=== PATIENT | male | born 1955 | race Caucasian/White ===

== ENCOUNTER 2020-05-28 16:13 | Outpatient (REF) | payer BC, SELFPAY ==
[2020-05-28 17:05] LABS: MANUAL DIFF FLAG NO
[2020-05-28 17:15] LABS: Basophils Absolute Auto 0.1 X10*3/uL (0.0-0.2); Basophils Percent Auto 0.7 % (0-2); Eosinophils Absolute Auto 0.2 X10*3/uL (0.0-0.4); Eosinophils Percent Auto 1.7 % (0-4); Hematocrit 49.2 % (42-52); Hemoglobin 16.4 g/dl (14.0-18.0); Imm Gran Abs Auto 0.12 X10*3/uL (0.00-0.03); Imm Gran Pct Auto 1.2 % (0.0-0.4); Lymphocytes Absolute Auto 3.1 X10*3/uL (1.2-4.9); Lymphocytes Percent Auto 30.6 % (20-40); Mean Corpuscular HGB Conc 33.3 g/dl (31.0-36.0); Mean Corpuscular Hemoglobin 29.6 pg (27.0-33.0); Mean Corpuscular Volume 88.8 fL (80-98); Mean Platelet Volume 11.2 fL (9.4-12.4); Monocytes Percent Auto 9.3 % (2-11); Neutrophils Absolute Auto 5.8 X10*3/uL (2.0-8.3); Neutrophils Percent Auto 56.5 % (45-73); Platelet Count 210 X10*3/uL (160-400); Red Blood Count 5.54 X10*6/uL (4.60-5.80); Red Cell Distribution Width 12.2 % (11.0-16.0); White Blood Count 10.2 X10*3/uL (4.8-10.8)
[2020-05-28 17:16] LABS: Appearance Urine CLEAR; Color Urine YELLOW; Glucose Urine UA NEG (NEG); Leukocyte Esterase Urine NEG (NEG); Nitrite Urine NEG (NEG); Urine Blood TRACE (NEG); Urine Ketones NEG (NEG); Urine Protein NEG (NEG-TRACE)
[2020-05-28 17:28] LABS: Bacteria Urine TRACE /LPF; Squamous Epithelial Cell Urine TRACE /LPF; WBC Urine 0-2 /HPF (0-4)
[2020-05-28 17:54] LABS: Anion Gap 13 (12-20); Blood Urea Nitrogen 12 mg/dL (9-16); C Reactive Protein 0.08 mg/dL (< or = 0.50); Calcium 9.1 mg/dL (8.4-10.2); Carbon Dioxide 25 mmol/L (22-29); Chloride 107 mmol/L (96-108); Estimated Glomerular Filt Rate > 60; Glucose Random 88 mg/dL (60-115); Sodium 141 mmol/L (135-145)
[2020-05-28 18:18] LABS: Free T4 (Free Thyroxine) 1.04 ng/dL (0.71-1.85); Prostate Specific Antigen 3.44 ng/mL (<0.05-4.0); Thyroid Stimulating Hormone 3.44 uIU/mL (0.32-4.0)
[2020-05-28 18:19] LABS: Vitamin B12 322 pg/mL (200-900)
== END 2020-05-28 16:14 | disposition home or self-care (01) ==
LOC: HO.LAB 16:13
PROVIDERS: PCP Internal Medicine; Visit Provider Internal Medicine
DX: R25.1 Tremor, unspecified (principal); K21.9 Gastro-esophageal reflux disease without esophagitis; E78.00 Pure hypercholesterolemia, unspecified; R30.0 Dysuria; Z12.5 Encounter for screening for malignant neoplasm of prostate
CPT/HCPCS: 36415; 80048; 81001; 82607; 84153; 84439; 84443; 85025; 86140; 87086

== ENCOUNTER 2020-10-19 10:10 | Outpatient (REF) | payer BC, SELFPAY ==
[2020-10-19 11:07] LABS: Alanine Aminotransferase 61 U/L (0-40); Albumin Level 4.1 g/dL (3.5-5.0); Alkaline Phosphatase 66 U/L (39-117); Anion Gap 14 (12-20); Aspartate Amino Transferase 40 U/L (5-37); Bilirubin Total 0.8 mg/dL (0.0-1.0); Blood Urea Nitrogen 14 mg/dL (9-16); Calcium 9.2 mg/dL (8.4-10.2); Carbon Dioxide 25 mmol/L (22-29); Chloride 105 mmol/L (96-108); Cholesterol 155 mg/dL; Estimated Glomerular Filt Rate > 60; Glucose Fasting 95 mg/dL (60-99); HDL Cholesterol 38 mg/dL; LDL Cholesterol Calculated 66 mg/dl; Potassium 4.1 mmol/L (3.3-5.1); Sodium 140 mmol/L (135-145); Total Protein 7.1 g/dL (6.5-8.0); Triglycerides 256 mg/dL
== END 2020-10-19 10:11 | disposition home or self-care (01) ==
LOC: HO.LAB 10:10
PROVIDERS: PCP Internal Medicine; Visit Provider Internal Medicine
DX: E78.00 Pure hypercholesterolemia, unspecified (principal)
CPT/HCPCS: 36415; 80053; 80061

== ENCOUNTER 2020-12-14 09:29 | Outpatient (REF) | payer BC, SELFPAY ==
[2020-12-14 10:30] LABS: Alanine Aminotransferase 69 U/L (0-40); Alkaline Phosphatase 67 U/L (39-117); Anion Gap 10 (12-20); Aspartate Amino Transferase 38 U/L (5-37); Bilirubin Total 0.9 mg/dL (0.0-1.0); Blood Urea Nitrogen 14 mg/dL (9-16); Carbon Dioxide 24 mmol/L (22-29); Chloride 107 mmol/L (96-108); Cholesterol 147 mg/dL; Estimated Glomerular Filt Rate > 60; Glucose Fasting 104 mg/dL (60-99); HDL Cholesterol 40 mg/dL; LDL Cholesterol Calculated 64 mg/dl; Potassium 4.1 mmol/L (3.3-5.1); Sodium 137 mmol/L (135-145); Total Protein 6.7 g/dL (6.5-8.0); Triglycerides 217 mg/dL
== END 2020-12-14 09:30 | disposition home or self-care (01) ==
LOC: HO.LAB 09:29
PROVIDERS: PCP Internal Medicine; Visit Provider Internal Medicine
DX: I10 Essential (primary) hypertension (principal); E78.5 Hyperlipidemia, unspecified; R79.89 Other specified abnormal findings of blood chemistry
CPT/HCPCS: 36415; 80053; 80061

== ENCOUNTER 2021-02-05 10:22 | Emergency (ER) | payer BC, SELFPAY ==
[2021-02-05 10:30] VITALS: BP 191/120; PULSE 99; RESP 20; TEMP 36.8; O2SAT 97; BMI 31.9
[2021-02-05 10:41] LABS: Glucose, Whole Blood 103 mg/dL (60-115)
--- NOTE | 2021-02-05 11:19 | ECG_ITS ---
Test Reason : sob Blood Pressure : / mmHG Vent. Rate : 086 BPM Atrial Rate : 086 BPM P-R Int : 132 ms QRS Dur : 086 ms QT Int : 350 ms P-R-T Axes : 045 024 049 degrees QTc Int : 418 ms Sinus rhythm with occasional Premature ventricular complexes Otherwise normal ECG When compared with ECG of 05-MAY-2007 06:51, Premature ventricular complexes are now Present Heart rate has increased Referred By: Pasquale Kurtz Electronically Signed By:SCOTT HILL MD
--- NOTE | 2021-02-05 11:20 | ED_ITS ---
HPI - General Adult General Chief complaint: General Medical Stated complaint: sob, shoulder to chest pain, numbness Time Seen by Provider: 02/05/21 11:13 Source: patient Mode of arrival: ambulatory Limitations: no limitations History of Present Illness HPI narrative: This is a very pleasant 65 years old male presented ambulatory to the emergency department stating that fairly this morning felt a pain in the right side of the neck, his leg was shaky he felt flushed, he drank some orange juice and felt much better. At this time is asymptomatic. He is also complaining of intermittent numbness/pain in the feet which has been going on for months Onset (ago): hour(s) (8) Location: neck (rt) Radiation: non-radiation Severity: moderate Quality: burning Pain Consistency: now resolved Relieving factors: other (oj) Exacerbating factors: none Related Data Allergies Allergy/AdvReac Type Severity Reaction Status Date / Time amoxicillin [Amoxicillin] Allergy Mild RASH Unverified 12/14/19 15:09 Penicillins Allergy Mild HIVES Unverified 12/14/19 15:09 Review of Systems Review of Systems: Yes all other systems are reviewed and are negative Constitutional: Constitutional: Denies fever(s) ENT: Denies disequilibrium Cardiovascular: Cardiovascular: Denies chest pain, Denies chest pain at rest, Denies chest pain with activity, Denies syncope and Denies rapid heart rate Respiratory: Respiratory: Reports no additional respiratory complaints Gastrointestinal: Gastrointestinal: Reports no additional gastrointestinal complaints Neurologic: Denies syncope and Denies disequilibrium PMFSH Past Medical History Attestation statement: The following information was validated with the patient. Medical History GERD (gastroesophageal reflux disease) High cholesterol Social History Social History Advance Directives: No Advance Directives Information Provided: Yes Physical Exam Vital Signs: Vital Signs: Last Vital Signs Temp 97.8 F 02/05/21 11:26 Pulse 80 02/05/21 13:02 Resp 15 02/05/21 13:02 BP 153/92 H 02/05/21 13:02 Pulse Ox 97 02/05/21 11:26 Body Mass Index 31.9 Const: Other: On physical examination is looks well he is nontoxic appearing General: cooperative Nutritional Appearance: average body habitus Orientation/consciousness: oriented to person, oriented to place, oriented to time and patient oriented x3 HENMT: Other: Examination the head eyes ears nose and throat is within normal limit Neck: Other: His neck is supple he has full range of motion and there is no stiffness Carotids: normal carotid upstroke Chest: Chest palpation & inspection: normal inspection of the chest Resp: Effort & Inspection: normal respiratory effort Auscultation: clear to auscultation bilaterally Cardio: Jugular venous distension: no JVD Palpation: normal PMI Rate: regular rate Rhythm: regular rhythm GI: Other: Abdomen is soft nontender no guarding no rebound Neuro: General: oriented to person, oriented to place, oriented to time and patient oriented x3 Extrem: Other: normal pulses feet General: Yes normal to inspection, Yes full ROM and Yes capillary refill normal Course Reevaluation(s) Reevaluation #1: At this time the patient is a completely asymptomatic, his labs are normal I think it the patient can be safely discharged home with a follow- up with the primary care physician. The fact that he got better with the orange was made me think that he had an episode of hypoglycemia Medical Decision Making MDM Narrative Medical decision making narrative: At this time the patient is asymptomatic, I do not think he is having acute coronary syndrome however given his age is 65 years old the he has hypercholesteremia we get at least an EKG his stoma baseline blood work including high sensitive troponin. I anticipate discharge if the above tests are within normal limit Lab Data Result diagrams: 02/05/21 11:44 02/05/21 11:44 Labs: Lab Results 02/05/21 02/05/21 02/05/21 Range/Units 10:36 11:44 11:44 WBC 9.2 (4.8-10.8) X10*3/uL RBC 5.58 (4.60-5.80) X10*6/uL Hgb 16.6 (14.0-18.0) g/dl Hct 49.3 (42.0-52.0) % MCV 88.4 (80.0-98.0) fL MCH 29.7 (27.0-33.0) pg MCHC 33.7 (31.0-36.0) g/dl RDW 12.3 (11.0-16.0) % Plt Count 188 (160-400) X10*3/uL MPV 10.5 (9.4-12.4) fL Immature Gran % (Auto) 1.1 H (0.0-0.4) % Neut % (Auto) 67.0 (45-73) % Lymph % (Auto) 21.7 (20-40) % [place] % (Auto) 8.7 (2-11) % Eos % (Auto) 1.0 (0-4) % Baso % (Auto) 0.5 (0-2) % Lymph # (Auto) 2.0 (1.2-4.9) X10*3/uL [place] # (Auto) 0.8 (0.1-1.2) X10*3/uL Eos # (Auto) 0.1 (0.0-0.4) X10*3/uL Baso # (Auto) 0.1 (0.0-0.2) X10*3/uL Abs Immat Gran (auto) 0.10 H (0.00-0.03) X10*3/uL Absolute Neuts (auto) 6.1 (2.0-8.3) x10*3/uL Absolute Nucleated RBC 0.000 (0.0-0.012) X10*3/uL Nucleated RBC % (auto) 0.0 (0.0-0.2) /100WBC Sodium 139 (135-145) mmol/L Potassium 4.2 (3.3-5.1) mmol/L Chloride 106 (96-108) mmol/L Carbon Dioxide 25 (22-29) mmol/L Anion Gap 12 (12-20) BUN 11 (9-16) mg/dL Creatinine 0.96 (0.5-1.4) mg/dL Estim Creat Clear Calc 95.3 Estimated GFR > 60 POC Glucose 103 (60-115) mg/dL Random Glucose 97 (60-115) mg/dL Calcium 9.5 (8.4-10.2) mg/dL Total Bilirubin 0.7 (0.0-1.0) mg/dL AST 41 H (5-37) U/L ALT 71 H (0-40) U/L Alkaline Phosphatase 68 (39-117) U/L Troponin I High Sens (<3.5-35.0) ng/L Total Protein 7.2 (6.5-8.0) g/dL Albumin 4.2 (3.5-5.0) g/dL 02/05/21 Range/Units 11:44 WBC (4.8-10.8) X10*3/uL RBC (4.60-5.80) X10*6/uL Hgb (14.0-18.0) g/dl Hct (42.0-52.0) % MCV (80.0-98.0) fL MCH (27.0-33.0) pg MCHC (31.0-36.0) g/dl RDW (11.0-16.0) % Plt Count (160-400) X10*3/uL MPV (9.4-12.4) fL Immature Gran % (Auto) (0.0-0.4) % Neut % (Auto) (45-73) % Lymph % (Auto) (20-40) % [place] % (Auto) (2-11) % Eos % (Auto) (0-4) % Baso % (Auto) (0-2) % Lymph # (Auto) (1.2-4.9) X10*3/uL [place] # (Auto) (0.1-1.2) X10*3/uL Eos # (Auto) (0.0-0.4) X10*3/uL Baso # (Auto) (0.0-0.2) X10*3/uL Abs Immat Gran (auto) (0.00-0.03) X10*3/uL Absolute Neuts (auto) (2.0-8.3) x10*3/uL Absolute Nucleated RBC (0.0-0.012) X10*3/uL Nucleated RBC % (auto) (0.0-0.2) /100WBC Sodium (135-145) mmol/L Potassium (3.3-5.1) mmol/L Chloride (96-108) mmol/L Carbon Dioxide (22-29) mmol/L Anion Gap (12-20) BUN (9-16) mg/dL Creatinine (0.5-1.4) mg/dL Estim Creat Clear Calc Estimated GFR POC Glucose (60-115) mg/dL Random Glucose (60-115) mg/dL Calcium (8.4-10.2) mg/dL Total Bilirubin (0.0-1.0) mg/dL AST (5-37) U/L ALT (0-40) U/L Alkaline Phosphatase (39-117) U/L Troponin I High Sens 3.7 (<3.5-35.0) ng/L Total Protein (6.5-8.0) g/dL Albumin (3.5-5.0) g/dL ECG Data Attestation: I personally reviewed and interpreted this ECG as follows: Prior ECG tracings: available for review Pacemaker model: NSR 86 no ischemic changes Discharge Plan Discharge Clinical Impression: Neck pain, Chronic pain of both feet, Non-diabetic hypoglycemia Patient Disposition: Home, Self-Care Instructions: Non-diabetic Hypoglycemia (ED), Neck Pain (ED) Additional Instructions: Please follow-up with your primary care physician, return to the emergency room if you worse, any concern Referrals: Laurent Collado MD [Primary Care Provider] - 2 days Interventions: ED Discharge Assessment Last Done: 02/05/21 13:11 Discharge Date/Time: 02/05/21 13:11
[2021-02-05 11:26] VITALS: BP 141/95; PULSE 87; RESP 15; TEMP 36.6; O2SAT 97
[2021-02-05 11:49] LABS: MANUAL DIFF FLAG NO
[2021-02-05 11:51] LABS: Basophils Absolute Auto 0.1 X10*3/uL (0.0-0.2); Basophils Percent Auto 0.5 % (0-2); Eosinophils Absolute Auto 0.1 X10*3/uL (0.0-0.4); Hematocrit 49.3 % (42.0-52.0); Hemoglobin 16.6 g/dl (14.0-18.0); Imm Gran Pct Auto 1.1 % (0.0-0.4); Lymphocytes Percent Auto 21.7 % (20-40); Mean Corpuscular HGB Conc 33.7 g/dl (31.0-36.0); Mean Corpuscular Hemoglobin 29.7 pg (27.0-33.0); Mean Corpuscular Volume 88.4 fL (80.0-98.0); Mean Platelet Volume 10.5 fL (9.4-12.4); Monocytes Absolute Auto 0.8 X10*3/uL (0.1-1.2); Monocytes Percent Auto 8.7 % (2-11); Neutrophils Absolute Auto 6.1 x10*3/uL (2.0-8.3); Platelet Count 188 X10*3/uL (160-400); Red Blood Count 5.58 X10*6/uL (4.60-5.80); Red Cell Distribution Width 12.3 % (11.0-16.0); White Blood Count 9.2 X10*3/uL (4.8-10.8)
[2021-02-05 12:13] LABS: Alanine Aminotransferase 71 U/L (0-40); Albumin Level 4.2 g/dL (3.5-5.0); Alkaline Phosphatase 68 U/L (39-117); Anion Gap 12 (12-20); Aspartate Amino Transferase 41 U/L (5-37); Bilirubin Total 0.7 mg/dL (0.0-1.0); Blood Urea Nitrogen 11 mg/dL (9-16); Calcium 9.5 mg/dL (8.4-10.2); Carbon Dioxide 25 mmol/L (22-29); Chloride 106 mmol/L (96-108); Creatinine Clr Calc Pharmacy 95.3; Estimated Glomerular Filt Rate > 60; Glucose Random 97 mg/dL (60-115); Potassium 4.2 mmol/L (3.3-5.1); Sodium 139 mmol/L (135-145); Total Protein 7.2 g/dL (6.5-8.0)
[2021-02-05 12:17] LABS: Troponin-I High Sensitivity 3.7 ng/L (<3.5-35.0)
[2021-02-05 13:02] VITALS: BP 153/92; PULSE 80; RESP 15
== END 2021-02-05 13:11 | disposition home or self-care (01) ==
PROVIDERS: Emergency Provider Emergency Medicine; PCP Internal Medicine
DX: M54.2 Cervicalgia (principal); G89.29 Other chronic pain; M79.672 Pain in left foot; M79.671 Pain in right foot; E16.2 Hypoglycemia, unspecified
CPT/HCPCS: 36415; 80053; 82947; 84484; 85025; 93005; 99283; 99284

== ENCOUNTER 2021-02-10 08:48 | Outpatient (REF) | payer BC, SELFPAY ==
--- NOTE | ~2021-02-10 | US_ITS ---
EXAMINATION: US ABDOMEN COMPLETE CLINICAL INFORMATION: Elevated LFTs. COMPARISON: Ultrasound abdomen 05/05/2007. TECHNIQUE: Real-time imaging of the abdominal viscera. FINDINGS: PANCREAS: Head and body the pancreas are normal. The tail is not well visualized due to bowel gas. ABDOMINAL AORTA: The distal abdominal aorta is normal in caliber. Proximal mid abdominal aorta is not well visualized due to bowel gas. INFERIOR VENA CAVA: Visualized portions are normal. LIVER: The liver is normal in size. The liver contour is normal. Liver echotexture is increased. No focal hepatic lesion. There is no intrahepatic biliary duct dilatation seen. GALLBLADDER: Surgically absent. COMMON BILE DUCT: Normal in caliber measuring 0.7cm in diameter. RIGHT KIDNEY: Normal No hydronephrosis. No renal calculi or focal parenchymal lesions. The kidney measures 13.0 cm in maximum dimension. LEFT KIDNEY: Normal No hydronephrosis. No renal calculi or focal parenchymal lesions. The kidney measures 11.5 cm in maximum dimension. SPLEEN: Normal. The spleen measures 13.2 cm in maximum dimension. FREE FLUID: None. US/US abdomen complete IMPRESSION: Echogenic liver probably representing fatty infiltration. Limited visualization of the tail the pancreas pancreas and proximal and mid aorta.
== END 2021-02-10 08:49 | disposition home or self-care (01) ==
LOC: HO.HMGCX 08:48
PROVIDERS: PCP Internal Medicine; Visit Provider Internal Medicine
DX: R94.5 Abnormal results of liver function studies (principal)
CPT/HCPCS: 76700

== ENCOUNTER 2021-02-15 10:13 | Outpatient (REF) | payer BC, SELFPAY ==
[2021-02-15 11:11] LABS: Estimated Average Glucose 114 mg/dL; Hemoglobin A1c % 5.6 %
[2021-02-15 11:23] LABS: Alanine Aminotransferase 67 U/L (0-40); Albumin Level 4.1 g/dL (3.5-5.0); Alkaline Phosphatase 90 U/L (39-117); Anion Gap 13 (12-20); Aspartate Amino Transferase 38 U/L (5-37); Bilirubin Total 0.6 mg/dL (0.0-1.0); Blood Urea Nitrogen 20 mg/dL (9-16); C Reactive Protein 0.19 mg/dL (< or = 0.50); Carbon Dioxide 25 mmol/L (22-29); Chloride 103 mmol/L (96-108); Estimated Glomerular Filt Rate > 60; Glucose Random 98 mg/dL (60-115); Lipase 50 U/L (8-78); Potassium 4.1 mmol/L (3.3-5.1); Sodium 137 mmol/L (135-145); Total Protein 7.1 g/dL (6.5-8.0)
[2021-02-15 11:47] LABS: Insulin 29 uU/mL (2-29)
[2021-02-17 04:37] LABS: Vitamin B12 312 pg/mL (200-900)
== END 2021-02-15 10:14 | disposition home or self-care (01) ==
LOC: HO.LAB 10:13
PROVIDERS: PCP Internal Medicine; Visit Provider Internal Medicine
DX: E16.2 Hypoglycemia, unspecified (principal); R25.1 Tremor, unspecified; R53.1 Weakness
CPT/HCPCS: 36415; 80053; 82607; 83036; 83525; 83690; 86140

== ENCOUNTER 2021-04-23 14:24 | Outpatient (REF) | payer BC, SELFPAY ==
[2021-04-23 14:42] LABS: MANUAL DIFF FLAG NO
[2021-04-23 15:03] LABS: Basophils Absolute Auto 0.1 X10*3/uL (0.0-0.2); Basophils Percent Auto 0.7 % (0-2); Eosinophils Absolute Auto 0.2 X10*3/uL (0.0-0.4); Eosinophils Percent Auto 2.1 % (0-4); Hematocrit 50.5 % (42.0-52.0); Hemoglobin 16.8 g/dl (14.0-18.0); Imm Gran Abs Auto 0.15 X10*3/uL (0.00-0.03); Imm Gran Pct Auto 1.6 % (0.0-0.4); Lymphocytes Absolute Auto 2.8 X10*3/uL (1.2-4.9); Lymphocytes Percent Auto 29.4 % (20-40); Mean Corpuscular HGB Conc 33.3 g/dl (31.0-36.0); Mean Corpuscular Hemoglobin 29.9 pg (27.0-33.0); Mean Corpuscular Volume 89.9 fL (80.0-98.0); Mean Platelet Volume 10.6 fL (9.4-12.4); Monocytes Absolute Auto 1.1 X10*3/uL (0.1-1.2); Monocytes Percent Auto 10.9 % (2-11); Neutrophils Absolute Auto 5.3 x10*3/uL (2.0-8.3); Neutrophils Percent Auto 55.3 % (45-73); Platelet Count 194 X10*3/uL (160-400); Red Blood Count 5.62 X10*6/uL (4.60-5.80); Red Cell Distribution Width 12.1 % (11.0-16.0); White Blood Count 9.6 X10*3/uL (4.8-10.8)
[2021-04-23 15:25] LABS: Alanine Aminotransferase 70 U/L (0-40); Albumin Level 4.1 g/dL (3.5-5.0); Alkaline Phosphatase 73 U/L (39-117); Anion Gap 12 (12-20); Aspartate Amino Transferase 44 U/L (5-37); Bilirubin Total 0.5 mg/dL (0.0-1.0); Blood Urea Nitrogen 16 mg/dL (9-16); C Reactive Protein 0.17 mg/dL (< or = 0.50); Calcium 9.6 mg/dL (8.4-10.2); Carbon Dioxide 26 mmol/L (22-29); Chloride 106 mmol/L (96-108); Estimated Glomerular Filt Rate > 60; Glucose Random 76 mg/dL (60-115); Potassium 3.9 mmol/L (3.3-5.1); Sodium 140 mmol/L (135-145); Total Protein 7.3 g/dL (6.5-8.0)
[2021-04-23 15:51] LABS: Vitamin B12 334 pg/mL (200-900)
== END 2021-04-23 14:25 | disposition home or self-care (01) ==
LOC: HO.LAB 14:24
PROVIDERS: PCP Internal Medicine; Visit Provider Internal Medicine
DX: R21 Rash and other nonspecific skin eruption (principal); K21.9 Gastro-esophageal reflux disease without esophagitis; R79.89 Other specified abnormal findings of blood chemistry; G62.9 Polyneuropathy, unspecified
CPT/HCPCS: 36415; 80053; 82607; 85025; 86140

== ENCOUNTER 2021-10-24 09:53 | Emergency (ER) | payer MEDICARE, OTHER, SELFPAY ==
[2021-10-24 09:59] VITALS: BP 180/99; PULSE 86; RESP 20; TEMP 36.8; O2SAT 99; BMI 31.5
--- NOTE | 2021-10-24 10:02 | ECG_ITS ---
Test Reason : hi bp Blood Pressure : / mmHG Vent. Rate : 083 BPM Atrial Rate : 083 BPM P-R Int : 128 ms QRS Dur : 088 ms QT Int : 348 ms P-R-T Axes : 058 044 070 degrees QTc Int : 408 ms Normal sinus rhythm Normal ECG When compared with ECG of 05-FEB-2021 11:34, Premature ventricular complexes are no longer Present Referred By: Generic ED Physician Electronically Signed By:ASIA RYDER
[2021-10-24 12:20] LABS: MANUAL DIFF FLAG NO
[2021-10-24 12:21] LABS: Basophils Percent Auto 0.2 % (0-2); Eosinophils Absolute Auto 0.1 X10*3/uL (0.0-0.4); Eosinophils Percent Auto 1.3 % (0-4); Hematocrit 50.6 % (42.0-52.0); Hemoglobin 17.2 g/dl (14.0-18.0); Imm Gran Abs Auto 0.11 X10*3/uL (0.00-0.03); Imm Gran Pct Auto 1.3 % (0.0-0.4); Lymphocytes Absolute Auto 2.1 X10*3/uL (1.2-4.9); Lymphocytes Percent Auto 24.5 % (20-40); Mean Corpuscular Hemoglobin 29.6 pg (27.0-33.0); Mean Corpuscular Volume 87.1 fL (80.0-98.0); Mean Platelet Volume 10.7 fL (9.4-12.4); Monocytes Absolute Auto 0.9 X10*3/uL (0.1-1.2); Monocytes Percent Auto 10.2 % (2-11); Neutrophils Absolute Auto 5.3 x10*3/uL (2.0-8.3); Neutrophils Percent Auto 62.5 % (45-73); Platelet Count 203 X10*3/uL (160-400); Red Blood Count 5.81 X10*6/uL (4.60-5.80); Red Cell Distribution Width 12.3 % (11.0-16.0); White Blood Count 8.5 X10*3/uL (4.8-10.8)
[2021-10-24 12:39] LABS: Anion Gap 15 (12-20); Blood Urea Nitrogen 14 mg/dL (9-16); Calcium 9.5 mg/dL (8.4-10.2); Carbon Dioxide 23 mmol/L (22-29); Chloride 107 mmol/L (96-108); Estimated Glomerular Filt Rate > 60; Glucose Random 104 mg/dL (60-115); Potassium 4.3 mmol/L (3.3-5.1); Sodium 141 mmol/L (135-145)
[2021-10-24 13:01] LABS: TSH reflex Free T4 1.25 uIU/mL (0.32-4.0)
--- NOTE | 2021-10-24 13:16 | ED.GENADULT ---
HPI - General Adult General Chief complaint: Anxiety Stated complaint: anxiety/cold sweat/bottom of feet [place] Time Seen by Provider: 10/24/21 10:57 History of Present Illness HPI narrative: Patient complains of feeling difficulty sleeping, tingling in his feet, somewhat anxious, he associates it with a recent COVID illness, his doctor has recently started and anti anxiety medication He denies chest pain he denies palpitations he denies shortness of breath Related Data Home Medications Medication Instructions Recorded Confirmed omeprazole 20 mg capsule,delayed 20 mg PO DAILY 04/17/21 04/17/21 release simvastatin 80 mg tablet 80 mg PO BEDTIME 04/17/21 04/17/21 Previous Rx's Medication Instructions Recorded doxycycline hyclate 100 mg capsule 100 mg PO BID 10 days #20 caps 04/17/21 lorazepam 1 mg tablet (Ativan) 1 mg PO TID PRN anxiety #10 tabs 10/24/21 Allergies Allergy/AdvReac Type Severity Reaction Status Date / Time amoxicillin [Amoxicillin] Allergy Mild RASH Unverified 04/17/21 15:58 Penicillins Allergy Mild HIVES Unverified 04/17/21 15:58 Review of Systems Review of Systems: Negatives no fever no chills no fainting no feeling faint no confusion no headache no neck pain no numbness weakness or tingling no vision changes no chest pain no shortness of breath no palpitations no abdominal pain no nausea vomiting or diarrhea no difficulty ambulating Yes all other systems are reviewed and are negative [facility] Past Medical History Source: nursing notes reviewed Medical History GERD (gastroesophageal reflux disease) High cholesterol Social History Social History Patient Tobacco Use Status: Current someday Tobacco user Advance Directives: No Advance Directives Information Provided: Yes Physical Exam ED Vital Signs: Vital Signs - 24 hr 10/24/21 09:59 Temperature 98.3 F Pulse Rate 86 Respiratory Rate 20 Blood Pressure 180/99 H Pulse Oximetry 99 Oxygen Delivery Method Room Air BMI result Body Mass Index 31.5 General appearance is no acute distress, comfortable cooperative Eyes pupils equal round reactive to light extraocular motions are intact The pharynx is clear with moist mucous membranes Neck is supple Respiratory no distress Chest clear to auscultation bilateral Heart no murmur Abdomen soft nontender Extremities full range of motion x4 Skin no rash Neuro no focal motor sensory deficits gait and balance are normal and interaction both comprehension and expression are normal, motor is 5/5 x4 Course Course Course Narrative: EKG was done with normal sinus rhythm no acute ST elevations no acute changes intervals were normal QT was normal Labs including renal function CBC TSH were checked without any acute abnormalities Patient was just started on an anti anxiety med by his primary doctor that may not have taken effect so he is given a small prescription for as needed Ativan and is told these are likely episodes of anxiety Medical Decision Making Lab Data Lab results reviewed: Yes I reviewed the patient's lab results. Result diagrams: 10/24/21 12:14 10/24/21 12:14 Labs: Lab Results 10/24/21 10/24/21 Range/Units 12:14 12:14 WBC 8.5 (4.8-10.8) X10*3/uL RBC 5.81 H (4.60-5.80) X10*6/uL Hgb 17.2 (14.0-18.0) g/dl Hct 50.6 (42.0-52.0) % MCV 87.1 (80.0-98.0) fL MCH 29.6 (27.0-33.0) pg MCHC 34.0 (31.0-36.0) g/dl RDW 12.3 (11.0-16.0) % Plt Count 203 (160-400) X10*3/uL MPV 10.7 (9.4-12.4) fL Immature Gran % (Auto) 1.3 H (0.0-0.4) % Neut % (Auto) 62.5 (45-73) % Lymph % (Auto) 24.5 (20-40) % [place] % (Auto) 10.2 (2-11) % Eos % (Auto) 1.3 (0-4) % Baso % (Auto) 0.2 (0-2) % Lymph # (Auto) 2.1 (1.2-4.9) X10*3/uL [place] # (Auto) 0.9 (0.1-1.2) X10*3/uL Eos # (Auto) 0.1 (0.0-0.4) X10*3/uL Baso # (Auto) 0.0 (0.0-0.2) X10*3/uL Abs Immat Gran (auto) 0.11 H (0.00-0.03) X10*3/uL Absolute Neuts (auto) 5.3 (2.0-8.3) x10*3/uL Absolute Nucleated RBC 0.000 (0.0-0.012) X10*3/uL Nucleated RBC % (auto) 0.0 (0.0-0.2) /100WBC Sodium 141 (135-145) mmol/L Potassium 4.3 (3.3-5.1) mmol/L Chloride 107 (96-108) mmol/L Carbon Dioxide 23 (22-29) mmol/L Anion Gap 15 (12-20) BUN 14 (9-16) mg/dL Creatinine 0.99 (0.5-1.4) mg/dL Estim Creat Clear Calc 88.0 Estimated GFR > 60 Random Glucose 104 D (60-115) mg/dL Calcium 9.5 (8.4-10.2) mg/dL TSH 1.25 (0.32-4.0) uIU/mL Discharge Plan Discharge Clinical Impression: Anxiety Patient Disposition: Home, Self-Care Additional Instructions: Blood tests did not show any acute abnormality, we checked thyroid kidney function blood count EKG was normal, no sign of heart attack or blood clot It is possible that your feeling episodes of anxiety so you can try Ativan as needed for short-term relief of anxiety Your doctor prescribed and anti anxiety medicine that might take several weeks to work in may need to be adjusted so continue the medication Return to ER any time for chest pain shortness of breath any worse condition or any concerns Prescriptions: New lorazepam [Ativan] 1 mg tablet 1 mg PO TID PRN (Reason: anxiety) Qty: 10 0RF Rx Instructions: This medication may cause drowsiness so no driving for 6 hours after taking No Action omeprazole 20 mg capsule,delayed release(DR/EC) 20 mg PO DAILY simvastatin 80 mg tablet 80 mg PO BEDTIME doxycycline hyclate 100 mg capsule 100 mg PO BID 10 Days Qty: 20 0RF Interventions: ED Discharge Assessment Last Done: 10/24/21 13:42 Discharge Date/Time: 10/24/21 13:44
[2021-10-24 13:22] VITALS: BP 150/93; PULSE 83; RESP 18; TEMP 36.7; O2SAT 99
== END 2021-10-24 13:44 | disposition home or self-care (01) ==
PROVIDERS: Physician Assistant Medical; Emergency Provider Student in an Organized Health Care Education/Training Program; PCP Internal Medicine
DX: F41.9 Anxiety disorder, unspecified (principal); E78.5 Hyperlipidemia, unspecified; Z79.899 Other long term (current) drug therapy; Z79.02 Long term (current) use of antithrombotics/antiplatelets
CPT/HCPCS: 36415; 80048; 84443; 85025; 93005; 99283

== ENCOUNTER 2022-03-31 09:07 | Outpatient (REF) | payer MEDICARE, OTHER, SELFPAY ==
[2022-03-31 09:27] LABS: MANUAL DIFF FLAG NO
[2022-03-31 10:05] LABS: Basophils Absolute Auto 0.1 X10*3/uL (0.0-0.2); Basophils Percent Auto 0.9 % (0-2); Eosinophils Absolute Auto 0.2 X10*3/uL (0.0-0.4); Eosinophils Percent Auto 2.4 % (0-4); Hematocrit 50.3 % (42.0-52.0); Hemoglobin 16.7 g/dl (14.0-18.0); Imm Gran Abs Auto 0.19 X10*3/uL (0.00-0.03); Lymphocytes Absolute Auto 3.2 X10*3/uL (1.2-4.9); Lymphocytes Percent Auto 33.1 % (20-40); Mean Corpuscular HGB Conc 33.2 g/dl (31.0-36.0); Mean Corpuscular Hemoglobin 29.2 pg (27.0-33.0); Mean Corpuscular Volume 87.9 fL (80.0-98.0); Monocytes Absolute Auto 0.9 X10*3/uL (0.1-1.2); Monocytes Percent Auto 9.7 % (2-11); Neutrophils Percent Auto 51.9 % (45-73); Platelet Count 164 X10*3/uL (160-400); Red Blood Count 5.72 X10*6/uL (4.60-5.80); Red Cell Distribution Width 12.4 % (11.0-16.0); White Blood Count 9.6 X10*3/uL (4.8-10.8)
[2022-03-31 10:23] LABS: Appearance Urine Clear; Color Urine Yellow; Glucose Urine UA Negative (Negative); Leukocyte Esterase Urine Trace (Negative); Nitrite Urine Negative (Negative); PH 6.5 (5.0-9.0); UMIC TRIGGER UA YES; Urine Blood Negative (Negative); Urine Ketones Negative (Negative); Urine Protein Negative (Neg-Trace)
[2022-03-31 10:43] LABS: Bacteria Urine None Seen (None Seen); Hyaline Casts Urine 0-2 /LPF (0-2); RBC Urine 0-2 /HPF (0-2); Squamous Epithelial Cell Urine 0-2 /HPF (0-2); WBC Urine 0-5 /HPF (0-5)
[2022-03-31 11:25] LABS: Alanine Aminotransferase 65 U/L (0-40); Albumin Level 4.1 g/dL (3.5-5.0); Alkaline Phosphatase 67 U/L (39-117); Anion Gap 13 (12-20); Aspartate Amino Transferase 45 U/L (5-37); Bilirubin Total 1.1 mg/dL (0.0-1.0); Blood Urea Nitrogen 16 mg/dL (9-16); Calcium 9.4 mg/dL (8.4-10.2); Carbon Dioxide 24 mmol/L (22-29); Chloride 106 mmol/L (96-108); Cholesterol 165 mg/dL; Estimated Glomerular Filt Rate > 60; Glucose Fasting 108 mg/dL (60-99); HDL Cholesterol 37 mg/dL; LDL Cholesterol Calculated 60 mg/dl; Sodium 139 mmol/L (135-145); Total Protein 7.2 g/dL (6.5-8.0); Triglycerides 340 mg/dL
[2022-03-31 11:45] LABS: Prostate Specific Antigen Scr 3.49 ng/mL (<0.05-4.0)
== END 2022-03-31 09:08 | disposition home or self-care (01) ==
LOC: HO.LAB 09:07
PROVIDERS: PCP Internal Medicine; Visit Provider Internal Medicine
DX: K21.9 Gastro-esophageal reflux disease without esophagitis (principal); E78.00 Pure hypercholesterolemia, unspecified; R79.89 Other specified abnormal findings of blood chemistry; N40.0 Benign prostatic hyperplasia without lower urinary tract symptoms; Z12.5 Encounter for screening for malignant neoplasm of prostate
CPT/HCPCS: 36415; 80053; 80061; 81001; 84153; 85025

== ENCOUNTER 2022-06-04 00:53 | Emergency (ER) | payer MEDICARE, OTHER, SELFPAY ==
--- NOTE | ~2022-06-04 | XR_ITS ---
EXAMINATION: XR CHEST CLINICAL INFORMATION: Cough COMPARISON: 02/26/2017 TECHNIQUE: Frontal view of the chest was obtained. FINDINGS: Normal symmetric lung volumes. No parenchymal consolidation. No pleural effusion. No pneumothorax. Cardiomediastinal silhouette and pulmonary vascularity are within normal limits. No acute osseous abnormalities. XR/XR chest 1V IMPRESSION: No acute findings.
[2022-06-04 00:58] VITALS: BP 167/97; PULSE 100; RESP 20; TEMP 37.2; O2SAT 96; BMI 27.8
--- NOTE | 2022-06-04 01:04 | ED_ITS ---
HPI - URI/Sore Throat General Chief Complaint: Upper Respiratory Symptoms Stated Complaint: Chest Cold Time Seen by Provider: 06/04/22 01:03 Source: patient Mode of arrival: ambulatory Limitations: no limitations History of Present Illness HPI Narrative: Patient not vaccinated against COVID or flu complaining of itchy throat running nose body aches cough with mucopurulent phlegm started today feels chest tightness shortness of breath with postnasal drip saturating 96% at room air no other family member sick no fever or chills Related Data Home Medications Medication Instructions Recorded Confirmed omeprazole 20 mg capsule,delayed 20 mg PO DAILY 04/17/21 04/17/21 release simvastatin 80 mg tablet 80 mg PO BEDTIME 04/17/21 04/17/21 Previous Rx's Medication Instructions Recorded doxycycline hyclate 100 mg capsule 100 mg PO BID 10 days #20 caps 04/17/21 lorazepam 1 mg tablet (Ativan) 1 mg PO TID PRN anxiety #10 tabs 10/24/21 benzonatate 200 mg capsule 200 mg PO TID PRN cough #30 caps 06/04/22 levofloxacin 750 mg tablet 750 mg PO DAILY 5 days #5 tabs 06/04/22 oseltamivir 75 mg capsule (Tamiflu) 75 mg PO BID 5 days #10 caps 06/04/22 Allergies Allergy/AdvReac Type Severity Reaction Status Date / Time amoxicillin [Amoxicillin] Allergy Mild RASH Verified 06/04/22 01:03 Penicillins Allergy Mild HIVES Verified 06/04/22 01:03 Review of Systems Review of Systems: Yes all other systems are reviewed and are negative PMFSH Past Medical History Medical History GERD (gastroesophageal reflux disease) High cholesterol Social History Social History Alcohol intake: unknown Patient Tobacco Use Status: Current someday Tobacco user Smoked in Last 30 Days: No Use of substances other than those prescribed or required for medical reasons: Unknown Advance Directives: No Physical Exam Vital Signs: Vital Signs: Last Vital Signs Temp 98.9 F 06/04/22 00:58 Pulse 100 06/04/22 00:58 Resp 20 06/04/22 00:58 BP 167/97 H 06/04/22 00:58 Pulse Ox 100 06/04/22 01:06 O2 Del Method 06/04/22 01:06 BMI result Body Mass Index 27.8 Appearance: Alert. Oriented X3. No acute distress. ENT: Pharynx normal. Oral Mucosa moist clear rhinorrhea Neck: Normal inspection. Neck supple. CVS: Normal heart rate and rhythm. Pulses normal. Respiratory: No respiratory distress. Equal air entry bilateral, no wheezing/rales/rhonchi Abdomen: Soft and nontender. Skin: Skin warm and dry. Normal skin color. Normal skin turgor. Extremities: No lower extremity edema. Neuro: Oriented X 3. No motor deficit. Medications Administered Discontinued Medications Generic Name Dose Route Start Last Admin Trade Name Freq PRN Reason Stop Dose Admin Benzonatate 200 mg 06/04/22 02:01 06/04/22 02:23 Benzonatate 100 Mg Capsule PO 06/04/22 02:02 200 mg ONCE ONE Administration Levofloxacin 750 mg 06/04/22 02:08 06/04/22 02:22 Levofloxacin 750 Mg Tablet PO 06/04/22 02:09 750 mg ONCE ONE Administration Oseltamivir Phosphate 75 mg 06/04/22 02:01 06/04/22 02:22 Oseltamivir Phosphate 75 Mg Capsule PO 06/04/22 02:02 75 mg ONCE ONE Administration Medical Decision Making Medical Decision Making [facility] Narrative: Patient with influenza A chest x-ray negative for infiltrate patient does say that to coughing and yellowish greenish phlegm is coming because other is started Levaquin will get Tamiflu and Tessalon Lab Data [facility] Lab Attestation statement: I reviewed the patient's lab results. Labs: Lab Results 06/04/22 06/04/22 Range/Units 01:21 01:21 COVID-19 (JOSETTE) Negative (Negative) COVID-19 Clin Com See Note Influenza Type A (JAVIER) Positive A (Negative) Influenza Type B (JAVIER) Negative (Negative) Influenza A & B Note See Note Discharge Plan Discharge Clinical Impression: Influenza, Bronchitis Patient Disposition: Home, Self-Care Instructions: Influenza (ED), Acute Bronchitis (ED) Additional Instructions: Drink plenty of fluids Social distancing as advised Take medication as prescribed for supportive treatment Follow with PCP if not better Prescriptions: New benzonatate 200 mg capsule 200 mg PO TID PRN (Reason: cough) Qty: 30 0RF oseltamivir [Tamiflu] 75 mg capsule 75 mg PO BID 5 Days Qty: 10 0RF levofloxacin 750 mg tablet 750 mg PO DAILY 5 Days Qty: 5 0RF No Action lorazepam [Ativan] 1 mg tablet 1 mg PO TID PRN (Reason: anxiety) Qty: 10 0RF Rx Instructions: This medication may cause drowsiness so no driving for 6 hours after taking omeprazole 20 mg capsule,delayed release(DR/EC) 20 mg PO DAILY simvastatin 80 mg tablet 80 mg PO BEDTIME doxycycline hyclate 100 mg capsule 100 mg PO BID 10 Days Qty: 20 0RF Interventions: ED Discharge Assessment Last Done: 06/04/22 02:27 Discharge Date/Time: 06/04/22 02:28
[2022-06-04 01:06] VITALS: O2SAT 100
[2022-06-04 01:38] LABS: COVID-19 Test Negative (Negative); IDNOW Serial# BCCEAD1C
[2022-06-04 01:41] LABS: IDNOW Serial# 16C4AD1C; Influenza A Positive (Negative); Influenza B2 Negative (Negative)
[2022-06-04] MEDS: levoFLOXacin 750 MG TABLET PO (02:22)
[2022-06-04] MEDS: Oseltamivir Phosphate 75 MG CAPSULE PO (02:22)
[2022-06-04] MEDS: Benzonatate 100 MG CAPSULE 200 MG PO (02:23)
== END 2022-06-04 02:28 | disposition home or self-care (01) ==
PROVIDERS: Emergency Provider Internal Medicine; PCP Internal Medicine
DX: J11.1 Influenza due to unidentified influenza virus with other respiratory manifestations (principal); J40 Bronchitis, not specified as acute or chronic; M79.10 Myalgia, unspecified site; R07.89 Other chest pain; F17.200 Nicotine dependence, unspecified, uncomplicated; Z20.822 Contact with and (suspected) exposure to COVID-19; Z20.828 Contact with and (suspected) exposure to other viral communicable diseases; Z79.899 Other long term (current) drug therapy; Z71.6 Tobacco abuse counseling
CPT/HCPCS: 71045; 87502; 87635; 99283; 99284

== ENCOUNTER → 2022-06-23 07:35 | Outpatient (REF) | payer MEDICARE, OTHER, SELFPAY ==
--- NOTE | 2022-06-23 07:38 | CA_ITS ---
Acquisition Time: 2022-06-23 08:11:25 Total Exercise Time: 00:04:00 Test Indications: CAD, SOB Medications: SEE H Protocol: CANDIDA Max HR: 153 BPM 98% of Pred: 155 BPM Max BP: 176/088 mmHG Max Work Load: 5.8 METS PT EXERCISED ON STD CANDIDA PROTOCOL FOR 4 MIN INTO STAGE 2. MAX HR 151-97%MAX.. NO C/O CP OR SOB. FREQUENT PVC'S WITH SOME TRIGEMINY.ELEC NEG. CLINICALLY EQUIVOCAL DUE TO PVC'S. WILL REFER TO CARDIOLOGY Referred By: Laurent Hill Overread By: SCOTT HILL MD
== END ==
LOC: HO.CARD 07:35
PROVIDERS: Visit Provider Internal Medicine
DX: R06.09 Other forms of dyspnea (principal)
CPT/HCPCS: 93017

== ENCOUNTER 2022-07-02 09:28 | Outpatient (REF) | payer MEDICARE, OTHER, SELFPAY ==
[2022-07-02 11:00] LABS: Cholesterol 129 mg/dL; HDL Cholesterol 34 mg/dL; LDL Cholesterol Calculated 58 mg/dl; Triglycerides 186 mg/dL
== END 2022-07-02 09:29 | disposition home or self-care (01) ==
LOC: HO.LAB 09:28
PROVIDERS: PCP Internal Medicine; Visit Provider Internal Medicine
DX: E78.5 Hyperlipidemia, unspecified (principal)
CPT/HCPCS: 36415; 80061

== ENCOUNTER 2022-09-01 00:08 | Inpatient (IN) | payer MEDICARE, OTHER, SELFPAY ==
--- NOTE | 2022-09-01 | ECG_ITS ---
Test Reason : CHEST PAIN Blood Pressure : / mmHG Vent. Rate : 100 BPM Atrial Rate : 100 BPM P-R Int : 132 ms QRS Dur : 088 ms QT Int : 308 ms P-R-T Axes : 049 036 057 degrees QTc Int : 397 ms Normal sinus rhythm Nonspecific T wave abnormality Abnormal ECG When compared with ECG of 24-OCT-2021 10:03, No significant change was found Referred By: Generic ED Physician Electronically Signed By:Luke Koch
--- NOTE | ~2022-09-01 | XR_ITS ---
EXAMINATION: XR CHEST CLINICAL INFORMATION: Chest pain COMPARISON: 06/04/2022 TECHNIQUE: 2 views of the chest were obtained. FINDINGS: The lungs are well expanded. No edema or effusion. Mild hazy opacity of the right upper lung noted.. No pneumothorax. The cardiomediastinal silhouette is within normal limits. No acute osseous abnormality. XR/XR chest 2V IMPRESSION: Mild hazy opacity of the right upper lung is nonspecific. This could be infectious or inflammatory.
--- NOTE | ~2022-09-01 | CT_ITS ---
EXAMINATION: CT ABDOMEN AND PELVIS WITH CONTRAST CLINICAL INFORMATION: Elevated LFTs. COMPARISON: None available. TECHNIQUE: Multidetector volumetric images were obtained from the superior aspect of the liver through the pubic symphysis following administration 85 mL of Omnipaque 350 intravenous contrast. Sagittal and coronal reformatted images were obtained on the technologist's workstation. Oral contrast: No This CT examination was performed using dose optimization techniques as appropriate, variously including the following: *Automated exposure control *Adjustment of mA and/or kV according to patient size (this includes techniques or standardized protocols for targeted exams where dose is matched to indication/reason for exam; i.e. extremities or head) *Use of iterative reconstruction technique DLP: 702 mGy-cm FINDINGS: LUNG BASES: There is a right lower lobe 1.2 cm nodule, series 6 image 7. There appears to be associated fat within the nodule. LIVER, GALLBLADDER, AND BILIARY TREE: The liver is normal in size and shape with decreased attenuation. No focal hepatic lesion or biliary ductal dilatation is present. Cholecystectomy. PANCREAS: Unremarkable. SPLEEN: Unremarkable. ADRENAL GLANDS: Unremarkable. KIDNEYS AND URETERS: The kidneys are normal in size, shape, and attenuation. No hydronephrosis, hydroureter, or calculi seen. Mild symmetric perinephric stranding. BLADDER: Unremarkable. GASTROINTESTINAL TRACT: The stomach is unremarkable. Normal caliber small bowel. No obstruction. Duodenal diverticulum noted. Normal appendix. Diffuse colonic diverticulosis. No diverticulitis. No wall thickening or adjacent inflammation. No free air or free fluid. ABDOMINAL WALL: No significant hernia is appreciated. LYMPH NODES: Normal. VASCULAR: Normal caliber aorta with mild atherosclerotic calcification. PELVIC VISCERA: Enlarged prostate encroaching into the base of the bladder. OSSEOUS STRUCTURES: No acute or suspicious osseous abnormality. CT/CT abdomen pelvis w IV con IMPRESSION: 1. Hepatic steatosis. No focal hepatic lesion. 2. 1.2 cm right lower lobe pulmonary nodule. There appears to be associated fat within the nodule. This is suggestive of a hamartoma. No prior to compare for stability. According to the UPDATED 2017 Fleischner Society recommendations, the advised follow-up imaging for a single solid nodule measuring 8 mm or greater is: Consider CT, PET/CT, or tissue sampling at 3 months.
--- NOTE | ~2022-09-01 | XR_ITS ---
EXAMINATION: XR CHEST CLINICAL INFORMATION: Opacity right upper lobe. Follow-up. COMPARISON: Chest radiographs 09/01/2022, 06/04/2022, 02/26/2017 TECHNIQUE: Portable upright AP view of the chest was obtained. FINDINGS: Again, there is an oval opacity approximately 1 cm in size overlying the mid right upper zone. Finding is new from prior chest 06/04/2022. This may be further characterized with CT chest to assess for nodule/mass. There is no lobar or segmental airspace consolidation or effusion. No pleural reaction. The cardiac and hilar and mediastinal contours and bony structures are unremarkable. XR/XR chest 1V IMPRESSION: - 1 cm oval opacity mid right upper zone new from prior chest 06/04/2022. This may be further characterized with CT chest. - No lobar or segmental airspace consolidation or effusion.
--- NOTE | ~2022-09-01 | CT_ITS ---
EXAMINATION: CT ANGIOGRAM OF THE CHEST WITH CONTRAST (CT PULMONARY ANGIOGRAM FOR PE) CLINICAL INFORMATION: Reason for Exam chest pain, high d-dimer COMPARISON: Chest radiograph from 09/02/2022. Abdomen CT from 09/01/2022. TECHNIQUE: Prior to contrast administration, noncontrast localization images were obtained. Subsequently, multidetector volumetric imaging was performed from the thoracic inlet to below the diaphragms following the administration of 70 mL Omnipaque 350 intravenous contrast. No contrast reaction reported. Sagittal, coronal, and MIP oblique sagittal reformatted images were obtained on the CT workstation, uploaded to PACS, and reviewed. This CT examination was performed using dose optimization techniques as appropriate, variously including the following: *Automated exposure control *Adjustment of mA and/or kV according to patient size (this includes techniques or standardized protocols for targeted exams where dose is matched to indication/reason for exam; i.e. extremities or head) *Use of iterative reconstruction technique DLP: Total exam dose-length product 331 mGy-cm FINDINGS: LUNGS AND PLEURA: There are irregular airspace opacities with surrounding groundglass attenuation in each upper lobe. An airspace opacity in the posteromedial right lower lobe has worsened compared to 09/01/2022; this had more of a nodular appearance on 09/01/2022. Mild atelectasis in the periphery of each lower lobe and within middle lobe and inferior lingula. Trace amount of posterior pleural fluid is detected. No pneumothorax. QUALITY OF STUDY/CONTRAST BOLUS: Satisfactory. PULMONARY ARTERIES: The pulmonary arteries are normal in size. No embolic filling defects within the main, lobar or segmental vessels. OTHER CARDIOVASCULAR: The heart size is normal. No pericardial effusion. Thoracic aorta has normal caliber and contour; no aneurysm or dissection. There is atherosclerotic calcification of the left anterior descending coronary artery. MEDIASTINUM/LOWER NECK: No mediastinal mass. The esophagus and visualized inferior portion of the thyroid gland are unremarkable. LYMPHATICS: No pathologic sized axillary, hilar or mediastinal lymph nodes. UPPER ABDOMEN: There appears to be diffuse hepatic steatosis and mild splenomegaly; the spleen measures 14.5 cm AP dimension. Incidentally noted is a lipoma within the proximal left external oblique muscle. OSSEOUS STRUCTURES: Mild spondylosis of the thoracic spine. Diffuse osteopenia. Chronic mild concave depression of endplates of T2 and T4 vertebral bodies and chronic moderate height loss of T3 vertebral body. CT/CT angio chest PE protocol IMPRESSION: * Findings consistent with multilobar infectious or inflammatory disease process. * No evidence of pulmonary embolism. * Hepatic steatosis and mild splenomegaly. * Bones are osteopenic and findings include chronic moderate compression deformity of T3 vertebral body.
[2022-09-01 00:10] VITALS: BP 133/85; PULSE 118; RESP 20; TEMP 38.1; O2SAT 95; BMI 31.4
--- NOTE | 2022-09-01 01:37 | MHC.EDTECH ---
PATIENT EKG DONE AND WAS READ BY PROVIDER ,RSV/COVID SWAB COLLECTED ,BLOOD DRAWN ALL SENT TO LAB .
[2022-09-01 01:39] LABS: MANUAL DIFF FLAG NO
[2022-09-01 01:40] LABS: Basophils Absolute Auto 0.1 X10*3/uL (0.0-0.2); Basophils Percent Auto 0.5 % (0-2); Eosinophils Percent Auto 0.1 % (0-4); Hemoglobin 15.1 g/dl (14.0-18.0); Imm Gran Abs Auto 0.15 X10*3/uL (0.00-0.03); Imm Gran Pct Auto 0.8 % (0.0-0.4); Lymphocytes Absolute Auto 0.5 X10*3/uL (1.2-4.9); Lymphocytes Percent Auto 2.8 % (20-40); Mean Corpuscular HGB Conc 33.6 g/dl (31.0-36.0); Mean Corpuscular Hemoglobin 29.2 pg (27.0-33.0); Mean Platelet Volume 11.1 fL (9.4-12.4); Monocytes Absolute Auto 1.4 X10*3/uL (0.1-1.2); Monocytes Percent Auto 7.6 % (2-11); Neutrophils Absolute Auto 16.4 x10*3/uL (2.0-8.3); Neutrophils Percent Auto 88.2 % (45-73); Platelet Count 122 X10*3/uL (160-400); Red Blood Count 5.17 X10*6/uL (4.60-5.80); Red Cell Distribution Width 13.1 % (11.0-16.0); White Blood Count 18.5 X10*3/uL (4.8-10.8)
[2022-09-01 02:01] LABS: Alanine Aminotransferase 122 U/L (0-40); Albumin Level 3.7 g/dL (3.5-5.0); Alkaline Phosphatase 113 U/L (39-117); Anion Gap 13 (12-20); Aspartate Amino Transferase 85 U/L (5-37); Bilirubin Total 1.6 mg/dL (0.0-1.0); Blood Urea Nitrogen 20 mg/dL (9-16); Calcium 9.3 mg/dL (8.4-10.2); Carbon Dioxide 21 mmol/L (22-29); Chloride 104 mmol/L (96-108); Creatinine Clr Calc Pharmacy 69.6; Estimated Glomerular Filt Rate 57; Glucose Random 151 mg/dL (60-115); Potassium 3.7 mmol/L (3.3-5.1); Sodium 134 mmol/L (135-145); Total Protein 6.7 g/dL (6.5-8.0); Troponin-I High Sensitivity 14.5 ng/L (<3.5-35.0)
[2022-09-01 02:19] LABS: Influenza A PCR NEGATIVE (Negative); Influenza B PCR NEGATIVE (Negative); Resp Syncy Virus RNA Qual PCR NEGATIVE (Negative); SARS COV2 PCR INHOUSE NEGATIVE (Negative)
[2022-09-01 02:44] VITALS: BP 141/83; PULSE 89; RESP 19; TEMP 37.2; O2SAT 97
--- NOTE | 2022-09-01 02:55 | PC.NURSE ---
this rn assumed care of pt from waiting room @ [phone]. this rn placed pt on plasma center technician. 20g IV in R Ac placed. bloodwork obtained and sent down to lab. this rn adn internal corrosion specialist made dr do aware of pt status. awaiting additional orders at this time
--- NOTE | 2022-09-01 03:08 | ED.CHESTPAIN ---
HPI - Chest Pain General Chief Complaint: Chest Pain Stated Complaint: chest pain Time Seen by Provider: 09/01/22 02:43 History of Present Illness HPI narrative: Patient is a 67-year-old male presented today with having pain to the left chest area. Lasted for last few hours. Patient has no history of diabetes, hypertension, mi. positive history of high cholesterol. Patient is from home. No shortness of breath no diaphoresis. Positive fever noted at home. No abdominal pain. No pain on urination. No coughing or congestion. Positive generalized malaise diffuse. No leg swelling. No history of blood clots. No history of cancer. Patient from home. Related Data Home Medications Medication Instructions Recorded Confirmed omeprazole 20 mg capsule,delayed 20 mg PO DAILY 04/17/21 04/17/21 release simvastatin 80 mg tablet 80 mg PO BEDTIME 04/17/21 04/17/21 Previous Rx's Medication Instructions Recorded doxycycline hyclate 100 mg capsule 100 mg PO BID 10 days #20 caps 04/17/21 lorazepam 1 mg tablet (Ativan) 1 mg PO TID PRN anxiety #10 tabs 10/24/21 benzonatate 200 mg capsule 200 mg PO TID PRN cough #30 caps 06/04/22 levofloxacin 750 mg tablet 750 mg PO DAILY 5 days #5 tabs 06/04/22 oseltamivir 75 mg capsule (Tamiflu) 75 mg PO BID 5 days #10 caps 06/04/22 Allergies Allergy/AdvReac Type Severity Reaction Status Date / Time amoxicillin [Amoxicillin] Allergy Mild RASH Verified 06/04/22 01:03 Penicillins Allergy Mild HIVES Verified 06/04/22 01:03 [facility] Past Medical History Attestation statement: The following information was validated with the patient. Medical History GERD (gastroesophageal reflux disease) High cholesterol Social History Social History Alcohol intake: unknown Patient Tobacco Use Status: Current someday Tobacco user Smoked in Last 30 Days: No Use of substances other than those prescribed or required for medical reasons: Yes Substance Use Type: Marijuana Advance Directives: No Advance Directives Information Provided: Yes Physical Exam Vital Signs: Vital Signs: Last Vital Signs Temp 99.2 F 09/01/22 04:28 Pulse 97 09/01/22 04:28 Resp 15 09/01/22 04:28 BP 144/84 H 09/01/22 04:28 Pulse Ox 98 09/01/22 04:28 O2 Del Method Room Air 09/01/22 04:28 BMI result Body Mass Index 31.4 Appearance: Alert. Oriented X3. No acute distress. Eyes: Pupils equal, round and reactive to light. ENT: Pharynx normal. Neck: Normal inspection. Neck supple. No lymph nodes noted. No crepitus CVS: Normal heart rate and rhythm. Pulses normal. Normal S1 and S2 Respiratory: No respiratory distress. Breath sounds normal. No Wheezing. No rales Abdomen: Soft and nontender. No rigidity. No distention. good BS x4 Skin: Skin warm and dry. Normal skin color. Normal skin turgor. Extremities: No lower extremity edema. Neurovascular intact to all extremities. No Lacerations. No Rash Neuro: Oriented X 3. No motor deficit. No sensory deficit. Moving all extermities. No slurred speech Medications Administered Discontinued Medications Generic Name Dose Route Start Last Admin Trade Name Freq PRN Reason Stop Dose Admin Azithromycin 500 mg 09/01/22 03:07 09/01/22 03:25 Azithromycin 500 Mg Tablet PO 09/01/22 03:08 500 mg ONCE ONE Administration Hydromorphone HCl 0.5 mg 09/01/22 04:59 09/01/22 05:07 Hydromorphone Hcl 0.5 Mg/0.5 Ml Syringe IVPUSH 09/01/22 05:00 0.5 mg ONCE ONE Administration Protocol Ceftriaxone Sodium 1 gm/ 50 mls @ 100 mls/hr 09/01/22 03:07 09/01/22 04:00 Sodium Chloride IV 09/01/22 03:36 Infused ONCE ONE Infusion Sodium Chloride 1,000 mls @ 999 mls/hr 09/01/22 03:15 09/01/22 07:39 Ns IV 09/01/22 04:15 Infused .Q1H1M SUGAR Infusion Sodium Chloride 1,000 mls @ 999 mls/hr 09/01/22 03:15 09/01/22 07:40 Ns IV 09/01/22 04:15 Infused .Q1H1M SUGAR Infusion Iohexol 85 ml 09/01/22 05:40 06/06/23 05:40 Iohexol 350 Mg/Ml 100 Ml Infus..Btl IV 09/01/22 05:41 85 ml ONCE ONE Administration Medical Decision Making Medical Decision Making [facility] Narrative: Positive chest pain, dull over the left chest. Chest x-ray showed a questionable infiltrate on the right. Patient's white count is 18. Minimal coughing. Rocephin and azithromycin was given. Dilaudid was given for pain. Patient's lactate is 1.2 no evidence for sepsis. Given IV fluids here in the emergency department. Patient has no risk for pulmonary emboli. No history of leg swelling. No history of blood clots. No history of cancer no history of travel. History not consistent with DVT/PE. Patient had elevated LFTs as well. With a total bili of 1.6 AST was [address] scan of the abdomen pelvis was done. There was no gross evidence of obstruction abscess perforation. Patient continued to have chest pain. Two sets of enzymes were done. They were both in the 14.9 range. Patient is flu RSV COVID were all negative. Given patient's age [age] years old positive chest pain still not resolved, question haziness on the chest x-ray. Question pneumonia. Will admit patient for further evaluation and monitoring. Rocephin and azithromycin already started pharmacy reconciliation ordered case discussed with hospitalist team Differential Diagnosis Differential Diagnoses: The differential diagnosis associated with the presentation includes Chest pain, Admission/Observation Consideration of admission/observation: Escalation of care including admission/observation considered Consult Healthcare Provider Management of the patient was discussed with: Hospitalist Lab Data [facility] Lab Attestation statement: I reviewed the patient's lab results. 09/01/22 01:34 09/01/22 01:34 Labs: Lab Results 09/01/22 09/01/22 09/01/22 Range/Units 01:34 01:34 01:34 WBC 18.5 H (4.8-10.8) X10*3/uL RBC 5.17 (4.60-5.80) X10*6/uL Hgb 15.1 (14.0-18.0) g/dl Hct 45.0 (42.0-52.0) % MCV 87.0 (80.0-98.0) fL MCH 29.2 (27.0-33.0) pg MCHC 33.6 (31.0-36.0) g/dl RDW 13.1 (11.0-16.0) % Plt Count 122 L D (160-400) X10*3/uL MPV 11.1 (9.4-12.4) fL Immature Gran % (Auto) 0.8 H (0.0-0.4) % Neut % (Auto) 88.2 H (45-73) % Lymph % (Auto) 2.8 L (20-40) % [place] % (Auto) 7.6 (2-11) % Eos % (Auto) 0.1 (0-4) % Baso % (Auto) 0.5 (0-2) % Lymph # (Auto) 0.5 L (1.2-4.9) X10*3/uL [place] # (Auto) 1.4 H (0.1-1.2) X10*3/uL Eos # (Auto) 0.0 (0.0-0.4) X10*3/uL Baso # (Auto) 0.1 (0.0-0.2) X10*3/uL Abs Immat Gran (auto) 0.15 H (0.00-0.03) X10*3/uL Absolute Neuts (auto) 16.4 H (2.0-8.3) x10*3/uL Absolute Nucleated RBC 0.000 (0.0-0.012) X10*3/uL Nucleated RBC % (auto) 0.0 (0.0-0.2) /100WBC Sodium 134 L (135-145) mmol/L Potassium 3.7 (3.3-5.1) mmol/L Chloride 104 (96-108) mmol/L Carbon Dioxide 21 L (22-29) mmol/L Anion Gap 13 (12-20) BUN 20 H (9-16) mg/dL Creatinine 1.27 (0.5-1.4) mg/dL Estim Creat Clear Calc 69.6 Estimated GFR 57 POC Glucose (60-115) mg/dL Random Glucose 151 H (60-115) mg/dL Lactic Acid (0.5-2.0) mmol/L Calcium 9.3 (8.4-10.2) mg/dL Total Bilirubin 1.6 H (0.0-1.0) mg/dL AST 85 H (5-37) U/L ALT 122 H (0-40) U/L Alkaline Phosphatase 113 (39-117) U/L Troponin I High Sens 14.5 (<3.5-35.0) ng/L Total Protein 6.7 (6.5-8.0) g/dL Albumin 3.7 (3.5-5.0) g/dL Influenza Type A (PCR) (Negative) Influenza Type B (PCR) (Negative) RSV RNA Qual (PCR) (Negative) SARS-CoV-2 RNA (RT-PCR) (Negative) 09/01/22 09/01/22 09/01/22 Range/Units 01:34 03:15 03:15 WBC (4.8-10.8) X10*3/uL RBC (4.60-5.80) X10*6/uL Hgb (14.0-18.0) g/dl Hct (42.0-52.0) % MCV (80.0-98.0) fL MCH (27.0-33.0) pg MCHC (31.0-36.0) g/dl RDW (11.0-16.0) % Plt Count (160-400) X10*3/uL MPV (9.4-12.4) fL Immature Gran % (Auto) (0.0-0.4) % Neut % (Auto) (45-73) % Lymph % (Auto) (20-40) % [place] % (Auto) (2-11) % Eos % (Auto) (0-4) % Baso % (Auto) (0-2) % Lymph # (Auto) (1.2-4.9) X10*3/uL [place] # (Auto) (0.1-1.2) X10*3/uL Eos # (Auto) (0.0-0.4) X10*3/uL Baso # (Auto) (0.0-0.2) X10*3/uL Abs Immat Gran (auto) (0.00-0.03) X10*3/uL Absolute Neuts (auto) (2.0-8.3) x10*3/uL Absolute Nucleated RBC (0.0-0.012) X10*3/uL Nucleated RBC % (auto) (0.0-0.2) /100WBC Sodium (135-145) mmol/L Potassium (3.3-5.1) mmol/L Chloride (96-108) mmol/L Carbon Dioxide (22-29) mmol/L Anion Gap (12-20) BUN (9-16) mg/dL Creatinine (0.5-1.4) mg/dL Estim Creat Clear Calc Estimated GFR POC Glucose (60-115) mg/dL Random Glucose (60-115) mg/dL Lactic Acid 1.2 (0.5-2.0) mmol/L Calcium (8.4-10.2) mg/dL Total Bilirubin (0.0-1.0) mg/dL AST (5-37) U/L ALT (0-40) U/L Alkaline Phosphatase (39-117) U/L Troponin I High Sens 14.9 (<3.5-35.0) ng/L Total Protein (6.5-8.0) g/dL Albumin (3.5-5.0) g/dL Influenza Type A (PCR) NEGATIVE (Negative) Influenza Type B (PCR) NEGATIVE (Negative) RSV RNA Qual (PCR) NEGATIVE (Negative) SARS-CoV-2 RNA (RT-PCR) NEGATIVE (Negative) 09/01/22 Range/Units 04:46 WBC (4.8-10.8) X10*3/uL RBC (4.60-5.80) X10*6/uL Hgb (14.0-18.0) g/dl Hct (42.0-52.0) % MCV (80.0-98.0) fL MCH (27.0-33.0) pg MCHC (31.0-36.0) g/dl RDW (11.0-16.0) % Plt Count (160-400) X10*3/uL MPV (9.4-12.4) fL Immature Gran % (Auto) (0.0-0.4) % Neut % (Auto) (45-73) % Lymph % (Auto) (20-40) % [place] % (Auto) (2-11) % Eos % (Auto) (0-4) % Baso % (Auto) (0-2) % Lymph # (Auto) (1.2-4.9) X10*3/uL [place] # (Auto) (0.1-1.2) X10*3/uL Eos # (Auto) (0.0-0.4) X10*3/uL Baso # (Auto) (0.0-0.2) X10*3/uL Abs Immat Gran (auto) (0.00-0.03) X10*3/uL Absolute Neuts (auto) (2.0-8.3) x10*3/uL Absolute Nucleated RBC (0.0-0.012) X10*3/uL Nucleated RBC % (auto) (0.0-0.2) /100WBC Sodium (135-145) mmol/L Potassium (3.3-5.1) mmol/L Chloride (96-108) mmol/L Carbon Dioxide (22-29) mmol/L Anion Gap (12-20) BUN (9-16) mg/dL Creatinine (0.5-1.4) mg/dL Estim Creat Clear Calc Estimated GFR POC Glucose 88 (60-115) mg/dL Random Glucose (60-115) mg/dL Lactic Acid (0.5-2.0) mmol/L Calcium (8.4-10.2) mg/dL Total Bilirubin (0.0-1.0) mg/dL AST (5-37) U/L ALT (0-40) U/L Alkaline Phosphatase (39-117) U/L Troponin I High Sens (<3.5-35.0) ng/L Total Protein (6.5-8.0) g/dL Albumin (3.5-5.0) g/dL Influenza Type A (PCR) (Negative) Influenza Type B (PCR) (Negative) RSV RNA Qual (PCR) (Negative) SARS-CoV-2 RNA (RT-PCR) (Negative) Independent Interpretation I performed an independent interpretation of an: EKG Interpretation: Patient's EKG shows sinus pattern heart rate is 100 TN QRS QTC within normal limits there is diffuse T-wave flattening noted. Discharge Plan Discharge Clinical Impression: Chest pain, Pneumonia Patient Disposition: Admitted As Inpatient Prescriptions: No Action lorazepam [Ativan] 1 mg tablet 1 mg PO TID PRN (Reason: anxiety) Qty: 10 0RF Rx Instructions: This medication may cause drowsiness so no driving for 6 hours after taking benzonatate 200 mg capsule 200 mg PO TID PRN (Reason: cough) Qty: 30 0RF oseltamivir [Tamiflu] 75 mg capsule 75 mg PO BID 5 Days Qty: 10 0RF levofloxacin 750 mg tablet 750 mg PO DAILY 5 Days Qty: 5 0RF omeprazole 20 mg capsule,delayed release(DR/EC) 20 mg PO DAILY simvastatin 80 mg tablet 80 mg PO BEDTIME doxycycline hyclate 100 mg capsule 100 mg PO BID 10 Days Qty: 20 0RF
[2022-09-01] MEDS: Azithromycin 500 MG TABLET PO (03:25)
[2022-09-01] MEDS: cefTRIAXone sodium 1 GM in 0.9 % Sodium Chloride 50 ML IV (03:25)
[2022-09-01] MEDS: 0.9 % Sodium Chloride 1,000 ML 999 ML IV ×2 (03:29→03:30)
[2022-09-01 03:32] LABS: Lactic Acid 1.2 mmol/L (0.5-2.0)
[2022-09-01 03:42] LABS: Troponin-I High Sensitivity 14.9 ng/L (<3.5-35.0)
--- NOTE | 2022-09-01 03:49 | PC.NURSE ---
pt medicated according to mar. pt calm and cooperative. blood work sent down to lab. pt awaiting CT at this time
[2022-09-01 04:28] VITALS: BP 144/84; PULSE 97; RESP 15; TEMP 37.3; O2SAT 98
[2022-09-01 04:50] LABS: Glucose, Whole Blood 88 mg/dL (60-115)
[2022-09-01] MEDS: HYDROmorphone HCl 0.5 MG/0.5 ML SYRINGE IVPUSH ×2 (05:07→08:39)
[2022-09-01] MEDS: iohexoL 350 MG/ML 100 ML INFUS..BTL 85 ML IV (05:40)
--- NOTE | 2022-09-01 08:03 | PC.NURSE ---
Initial contact with pt. pt resting comfortably, reports pain is partially relieved. requesting rae kisha and ice, provided. awaiting dispo.
[2022-09-01 08:12] VITALS: BP 153/86; PULSE 99; RESP 26; O2SAT 98
--- NOTE | 2022-09-01 09:28 | PHA.MEDREC ---
Pharmacy Consult ? Medication Reconciliation Pharmacy has completed the medication reconciliation. Spoke to patient at bedside, able to name medications
--- NOTE | 2022-09-01 11:27 | PM.IMHP ---
History of Present Illness Date of Service: 09/01/22 Attending physician on admission: Jaimie Zayas Chief Complaint: chest pain 67 year old male with history of GERD, hyperlipidemia who is a former smoker (quit 20+ years ago) presents to the ED earlier today for evaluation of left sided chest pain. He states he feels tightness in the chest that radiates to the back. Worsens with inspiration. He has also felt sweats/chills, general weakness, and myalgia. Endorses mild sob several days ago, but denies currently. Has not taken temperatute. No sick contacts. No sore throat, congestion, abd pain, n/v, urinary symptoms, diarrhea, lightheadedness, palpitations, or retrosternal chest pressure. On arrival, patient febrile to 100.5 with associated tachycardia to 118, tachypnea to 26. No hypoxia or hypotension. There is a leukocytosis 18.5. Renal function normal, lights without significant abnormality. Lactic acid 1.2. Total bili 1.6, AST 85, ALP 122. Trops WNL x2. Negative for flu, rsv, covid-19. CXR showing mild hazy opacity of the RUL, possibly infectious vs inflammatory. CT abd/pelvis showing hepatic steatosis without focal lesion as well as a 1.2cm RLL pulmonary nodule with associated fat within the nodule suggestive of hamartoma. EKG showing NSR, rate 100, nonspecific t wave abnormality unchanged. No LISA or depressions. In the ED, treated with hydromorphone, azithromycin, ceftriaxone, and acetaminophen. Review of Systems Review of Systems: General: No fevers, malaise, unintentional weight loss HEENT: No blurred vision, diplopia. No sore throat, nasal congestion, rhinorrhea, sinus pain, ear pain Cardiovascular: +chest pain. No palpitations, or leg edema Respiratory: +sob. No wheezing, cough GI: No abdominal pain, nausea, vomiting, diarrhea, constipation, melena, hematochezia : No dysuria, hematuria, increased urinary frequency, decreased urinary output MSK: No myalgia, back pain Neuro: No headaches, weakness, paresthesias Skin: No rashes or lesions [facility] Medical History GERD (gastroesophageal reflux disease) High cholesterol Social History (Updated 09/01/22 @ 11:36 by MEENA Fan) Alcohol intake: unknown Patient Tobacco Use Status: Former Tobacco user Smoked in Last 30 Days: No Use of substances other than those prescribed or required for medical reasons: Yes Substance Use Type: Marijuana Advance Directives: No Advance Directives Information Provided: Yes Meds Allergies Allergy/AdvReac Type Severity Reaction Status Date / Time amoxicillin [Amoxicillin] Allergy Mild RASH Verified 06/04/22 01:03 Penicillins Allergy Mild HIVES Verified 06/04/22 01:03 Active Medications: Current Medications Acetaminophen (Acetaminophen 325 Mg Tablet) 650 mg PO Q6H PRN PRN Reason: Pain, Mild, fever Docusate Sodium (Docusate Sodium 100 Mg Capsule) 100 mg PO DAILY PRN PRN Reason: Constipation Enoxaparin Sodium (Enoxaparin Sodium 40 Mg/0.4 Ml Syringe) 40 mg SUBCUT Q24H [facility] Ceftriaxone Sodium 1 gm/ (Sodium Chloride) 50 mls @ 100 mls/hr IV Q24H [facility] Azithromycin 500 mg/ Sodium (Chloride) 250 mls @ 125 mls/hr IV Q24H [facility] Stop: 09/03/22 05:29 Lidocaine (Lidocaine 4 % Patch Adh..Patch) 1 patch TRANSDERMA DAILY PRN; Protocol PRN Reason: pleuritic chest pain Morphine Sulfate (Morphine Sulfate 2 Mg/Ml Cartridge) 2 mg IVPUSH Q4H PRN; Protocol PRN Reason: Pain, Severe (Pain Scale 7-10) Multivitamins/Vitamin C (Multivitamin Tablet) 1 tab PO DAILY [facility] Non-Formulary Medication (Simvastatin) 80 mg PO BEDTIME [facility] Omeprazole (Omeprazole 20 Mg Capsule.) 20 mg PO DAILY@0630 [facility] Ondansetron HCl (Ondansetron Hcl 4 Mg/2 Ml Vial) 4 mg IVPUSH Q8H PRN PRN Reason: Nausea and Vomiting Pharmacy Consult (Consult Rx Perform Med Rec) 1 each MISCELLANE ONCE PRN PRN Reason: Consult order Sodium Chloride (0.9 % Sodium Chloride Flush 3 Ml Syringe) 3 ml IVFLUSH QSHIFT [facility] Home Medications Medication Instructions Recorded Confirmed Last Taken Type omeprazole 20 mg capsule,delayed 20 mg PO DAILY@0630 04/17/21 09/01/22 Unknown History release simvastatin 80 mg tablet 80 mg PO BEDTIME 04/17/21 09/01/22 Unknown History multivitamin 1 tab PO DAILY 09/01/22 09/01/22 Unknown History Physical Exam Vital Signs and Narrative: Vital Signs: Last Vital Signs Temp 99.2 F 09/01/22 04:28 Pulse 99 09/01/22 08:12 Resp 26 H 09/01/22 08:12 BP 153/86 H 09/01/22 08:12 Pulse Ox 98 09/01/22 08:12 O2 Del Method Room Air 09/01/22 08:12 BMI result Body Mass Index 31.4 Constitutional - Awake and Alert, No apparent distress Eyes - PERRLA, EOMI Cardiovascular - S1S2, RRR, No edema Chest- reproducible ttp left chest Respiratory - Normal lung expansion, Normal respiratory effort, No respiratory distress, CTA bilaterally Gastrointestinal - NT / ND; +BS; No rebound or guarding Extremities - no calf tenderness bilaterally, no swelling Skin - Warm/Dry Neurological - Alert & oriented x3, 5/5 strength BUE and BLE Psychological - Appropriate affect Results Labs 09/01/22 01:34 09/01/22 01:34 Labs: Laboratory Results - last 24 hr 09/01/22 09/01/22 09/01/22 01:34 01:34 01:34 MCV 87.0 MCH 29.2 MCHC 33.6 RDW 13.1 Plt Count 122 L D MPV 11.1 Immature Gran % (Auto) 0.8 H Neut % (Auto) 88.2 H Lymph % (Auto) 2.8 L [place] % (Auto) 7.6 Eos % (Auto) 0.1 Baso % (Auto) 0.5 Lymph # (Auto) 0.5 L [place] # (Auto) 1.4 H Eos # (Auto) 0.0 Baso # (Auto) 0.1 Abs Immat Gran (auto) 0.15 H Absolute Neuts (auto) 16.4 H Absolute Nucleated RBC 0.000 Nucleated RBC % (auto) 0.0 Anion Gap 13 Estim Creat Clear Calc 69.6 Estimated GFR 57 POC Glucose Random Glucose 151 H Lactic Acid Calcium 9.3 Total Bilirubin 1.6 H AST 85 H ALT 122 H Alkaline Phosphatase 113 Troponin I High Sens 14.5 Total Protein 6.7 Albumin 3.7 Influenza Type A (PCR) Influenza Type B (PCR) RSV RNA Qual (PCR) SARS-CoV-2 RNA (RT-PCR) 09/01/22 09/01/22 09/01/22 01:34 03:15 03:15 MCV MCH MCHC RDW Plt Count MPV Immature Gran % (Auto) Neut % (Auto) Lymph % (Auto) [place] % (Auto) Eos % (Auto) Baso % (Auto) Lymph # (Auto) [place] # (Auto) Eos # (Auto) Baso # (Auto) Abs Immat Gran (auto) Absolute Neuts (auto) Absolute Nucleated RBC Nucleated RBC % (auto) Anion Gap Estim Creat Clear Calc Estimated GFR POC Glucose Random Glucose Lactic Acid 1.2 Calcium Total Bilirubin AST ALT Alkaline Phosphatase Troponin I High Sens 14.9 Total Protein Albumin Influenza Type A (PCR) NEGATIVE Influenza Type B (PCR) NEGATIVE RSV RNA Qual (PCR) NEGATIVE SARS-CoV-2 RNA (RT-PCR) NEGATIVE 09/01/22 04:46 MCV MCH MCHC RDW Plt Count MPV Immature Gran % (Auto) Neut % (Auto) Lymph % (Auto) [place] % (Auto) Eos % (Auto) Baso % (Auto) Lymph # (Auto) [place] # (Auto) Eos # (Auto) Baso # (Auto) Abs Immat Gran (auto) Absolute Neuts (auto) Absolute Nucleated RBC Nucleated RBC % (auto) Anion Gap Estim Creat Clear Calc Estimated GFR POC Glucose 88 Random Glucose Lactic Acid Calcium Total Bilirubin AST ALT Alkaline Phosphatase Troponin I High Sens Total Protein Albumin Influenza Type A (PCR) Influenza Type B (PCR) RSV RNA Qual (PCR) SARS-CoV-2 RNA (RT-PCR) Imaging Radiologist's Impressions: Impressions Chest X-Ray 09/01/22 00:25 IMPRESSION: Mild hazy opacity of the right upper lung is nonspecific. This could be infectious or inflammatory. Abdomen/Pelvis CT 09/01/22 05:35 IMPRESSION: 1. Hepatic steatosis. No focal hepatic lesion. 2. 1.2 cm right lower lobe pulmonary nodule. There appears to be associated fat within the nodule. This is suggestive of a hamartoma. No prior to compare for stability. According to the UPDATED 2017 Fleischner Society recommendations, the advised follow-up imaging for a single solid nodule measuring 8 mm or greater is: Consider CT, PET/CT, or tissue sampling at 3 months. Assessment and Plan (1) Pneumonia: Status: Acute (2) Chest pain: Status: Acute (3) Sepsis: Status: Acute Plan 67 year old male with history of GERD, hyperlipidemia who is a former smoker (quit 20+ years ago) admitted for CAP with sepsis. #Community acquired pneumonia with sepsis -WBC 18, tachycardic to 118, febrile to 100.9 on exam, tachypnea to 26. Lactic acid normal. No end organ damage or hypotension -No hypoxia -IV ceftriaxone and azithromycin (initiated 09/01) -Symptomatic management -sputum culture, strep pneumo ag, legionella ag -Follow CBC, cultures #Atypical chest pain -Trops WNL x2, EKG nonischemic -reproducible to palpation, pleuritic in nature -Treat pneumonia as above, pain management prn with pain scale #HLD -continue statin #GERD -continue ppi #Incidentalomas -Hepatic steatosis- LFTs slightly elevated possibly secondary to infection, outpt follow up -1.2 cm RLL pulmonary nodule concerning for hamartoma. Recommend outpt follow up in [address]/PET/CT or tissue sampling DVT prophylaxis- lovenox Full code Pt requires inpt stay at least 2 midnights for management of CAP with sepsis requiring IV abx and close monitoring to prevent decompensation Time Spent With Patient Time: Total time managing care of this patient today ____ minutes. Quality Stroke Does the patient have a stroke diagnosis?: No VTE Prior VTE?: No VTE Risk Level:: Medical - moderate - high VTE Device Contraindication: Treatment Not Indicated VTE Drug Contraindication: N/A - Med Ordered
[2022-09-01] MEDS: Morphine Sulfate 2 MG/ML CARTRIDGE IVPUSH ×2 (12:04→17:05)
[2022-09-01] MEDS: Enoxaparin Sodium 40 MG/0.4 ML SYRINGE SUBCUT (12:04)
[2022-09-01] MEDS: Acetaminophen 325 MG TABLET 650 MG PO ×2 (12:04→17:52)
[2022-09-01] MEDS: Lidocaine 4 % Patch ADH..PATCH 1 PATCH TRANSDERMA (12:04)
--- NOTE | 2022-09-01 16:20 | PC.NURSE ---
report to ana, S3
[2022-09-01 17:25] VITALS: BP 132/85; PULSE 79; RESP 20; TEMP 36.9; O2SAT 95
[2022-09-01 19:36] VITALS: BP 131/71; PULSE 81; RESP 18; TEMP 36; O2SAT 94
[2022-09-01] MEDS: Atorvastatin Calcium 40 MG TABLET PO (20:03)
[2022-09-01] MEDS: 0.9 % Sodium Chloride Flush 3 ML SYRINGE IVFLUSH (20:04)
[2022-09-02] MEDS: Acetaminophen 325 MG TABLET 650 MG PO ×2 (00:19→16:38)
[2022-09-02] MEDS: cefTRIAXone sodium 1 GM in 0.9 % Sodium Chloride 50 ML IV (02:54)
[2022-09-02] MEDS: Azithromycin 500 MG in 0.9 % Sodium Chloride 250 ML 125 MG IV (02:57)
[2022-09-02 03:29] VITALS: BP 134/73; PULSE 66; RESP 16; TEMP 36.3; O2SAT 96
[2022-09-02 05:54] LABS: MANUAL DIFF FLAG NO
[2022-09-02 05:59] LABS: Basophils Absolute Auto 0.1 X10*3/uL (0.0-0.2); Basophils Percent Auto 0.5 % (0-2); Eosinophils Absolute Auto 0.3 X10*3/uL (0.0-0.4); Eosinophils Percent Auto 2.8 % (0-4); Hematocrit 42.7 % (42.0-52.0); Hemoglobin 13.9 g/dl (14.0-18.0); Imm Gran Pct Auto 0.9 % (0.0-0.4); Lymphocytes Absolute Auto 1.1 X10*3/uL (1.2-4.9); Lymphocytes Percent Auto 10.4 % (20-40); Mean Corpuscular HGB Conc 32.6 g/dl (31.0-36.0); Mean Corpuscular Hemoglobin 29.4 pg (27.0-33.0); Mean Corpuscular Volume 90.3 fL (80.0-98.0); Mean Platelet Volume 11.7 fL (9.4-12.4); Monocytes Percent Auto 9.5 % (2-11); Neutrophils Absolute Auto 8.2 x10*3/uL (2.0-8.3); Neutrophils Percent Auto 75.9 % (45-73); Red Blood Count 4.73 X10*6/uL (4.60-5.80); Red Cell Distribution Width 13.6 % (11.0-16.0); White Blood Count 10.7 X10*3/uL (4.8-10.8)
[2022-09-02 06:00] LABS: Platelet Count 92 X10*3/uL (160-400)
[2022-09-02] MEDS: Omeprazole 20 MG CAPSULE.DR PO (06:08)
[2022-09-02 06:13] LABS: Anion Gap 11 (12-20); Blood Urea Nitrogen 12 mg/dL (9-16); Calcium 8.4 mg/dL (8.4-10.2); Carbon Dioxide 23 mmol/L (22-29); Chloride 110 mmol/L (96-108); Estimated Glomerular Filt Rate > 60; Glucose Random 138 mg/dL (60-115); Potassium 3.7 mmol/L (3.3-5.1); Sodium 140 mmol/L (135-145)
[2022-09-02 07:10] VITALS: BP 133/81; PULSE 76; RESP 18; TEMP 36.1; O2SAT 96
[2022-09-02] MEDS: Docusate Sodium 100 MG CAPSULE PO (07:50)
[2022-09-02] MEDS: Multivitamin TABLET 1 TAB PO (07:50)
[2022-09-02] MEDS: 0.9 % Sodium Chloride Flush 3 ML SYRINGE IVFLUSH ×3 (07:51→23:59)
[2022-09-02] MEDS: Enoxaparin Sodium 40 MG/0.4 ML SYRINGE SUBCUT (10:50)
--- NOTE | 2022-09-02 11:20 | P.PNIM_ITS ---
Subjective Subjective Date of Service: 09/02/22 Interval History: chest pain on inspiration Physical Exam Vital Signs: Vital Signs: Last Vital Signs Temp 97 F 09/02/22 07:10 Pulse 76 09/02/22 07:10 Resp 18 09/02/22 07:10 BP 133/81 09/02/22 07:10 Pulse Ox 96 09/02/22 07:10 O2 Del Method Room Air 09/02/22 07:10 BMI result Body Mass Index 31.4 General: AO X 3, no acute distress Resp: CTA bilateral, no accessory muscles used CVS: S1,S2,RRR GI: soft, non tender, non distended Neuro: motor grossly intact, alert Psych: appropriate affect, appropriate insight Objective Data Active Medications Acetaminophen (Acetaminophen 325 Mg Tablet) 650 mg PO Q6H PRN PRN Reason: Pain, Mild, fever Last Admin: 09/02/22 00:19 Dose: 650 mg Documented By: FITO Atorvastatin Calcium (Atorvastatin Calcium 40 Mg Tablet) 40 mg PO BEDTIME SUGAR Last Admin: 09/01/22 20:03 Dose: 40 mg Documented By: FITO Docusate Sodium (Docusate Sodium 100 Mg Capsule) 100 mg PO DAILY PRN PRN Reason: Constipation Last Admin: 09/02/22 07:50 Dose: 100 mg Documented By: KIT Enoxaparin Sodium (Enoxaparin Sodium 40 Mg/0.4 Ml Syringe) 40 mg SUBCUT Q24H [facility] Last Admin: 09/02/22 10:50 Dose: 40 mg Documented By: LYNN Guaifenesin (Guaifenesin 200 Mg/10 Ml 10 Ml Liquid) 10 ml PO Q4H PRN PRN Reason: Cough Ceftriaxone Sodium 1 gm/ (Sodium Chloride) 50 mls @ 100 mls/hr IV Q24H [facility] Last Infusion: 09/02/22 04:29 Dose: 0 mls/hr Documented By: FITO Azithromycin 500 mg/ Sodium (Chloride) 250 mls @ 125 mls/hr IV Q24H [facility] Stop: 09/03/22 05:29 Last Infusion: 09/02/22 06:09 Dose: 0 mls/hr Documented By: FITO Lidocaine (Lidocaine 4 % Patch Adh..Patch) 1 patch TRANSDERMA DAILY PRN; Protocol PRN Reason: pleuritic chest pain Last Admin: 09/01/22 12:04 Dose: 1 patch Documented By: ROSIE Morphine Sulfate (Morphine Sulfate 2 Mg/Ml Cartridge) 2 mg IVPUSH Q4H PRN; Protocol PRN Reason: Pain, Severe (Pain Scale 7-10) Last Admin: 09/01/22 17:05 Dose: 2 mg Documented By: HOANG Multivitamins/Vitamin C (Multivitamin Tablet) 1 tab PO DAILY [facility] Last Admin: 09/02/22 07:50 Dose: 1 tab Documented By: KIT Omeprazole (Omeprazole 20 Mg Capsule.) 20 mg PO DAILY@0630 [facility] Last Admin: 09/02/22 06:08 Dose: 20 mg Documented By: FITO Ondansetron HCl (Ondansetron Hcl 4 Mg/2 Ml Vial) 4 mg IVPUSH Q8H PRN PRN Reason: Nausea and Vomiting Pharmacy Consult (Consult Rx Perform Med Rec) 1 each MISCELLANE ONCE PRN PRN Reason: Consult order Sodium Chloride (0.9 % Sodium Chloride Flush 3 Ml Syringe) 3 ml IVFLUSH QSHIFT [facility] Last Admin: 09/02/22 07:51 Dose: 3 ml Documented By: KIT Labs 09/02/22 05:39 09/02/22 05:39 Labs: Laboratory Results - last 24 hr 09/02/22 09/02/22 05:39 05:39 MCV 90.3 MCH 29.4 MCHC 32.6 RDW 13.6 Plt Count 92 L MPV 11.7 Immature Gran % (Auto) 0.9 H Neut % (Auto) 75.9 H Lymph % (Auto) 10.4 L [place] % (Auto) 9.5 Eos % (Auto) 2.8 Baso % (Auto) 0.5 Lymph # (Auto) 1.1 L [place] # (Auto) 1.0 Eos # (Auto) 0.3 Baso # (Auto) 0.1 Abs Immat Gran (auto) 0.10 H Absolute Neuts (auto) 8.2 Absolute Nucleated RBC 0.000 Nucleated RBC % (auto) 0.0 Anion Gap 11 L Estim Creat Clear Calc 96.0 Estimated GFR > 60 Random Glucose 138 H Calcium 8.4 D Microbiology Microbiology Results: Microbiology 09/01/22 03:15 Blood Culture - Preliminary Blood - Venous No growth after 24 hours. 09/01/22 03:15 Blood Culture - Preliminary Blood - Venous No growth after 24 hours. Assessment and Plan (1) Chest pain: Status: Acute Plan 67M PMH GERD, hyperlipidemia who is a former smoker (quit 20+ years ago) presented with chest pain, fever sepsis ? rul pna follow up repeat cxr, cultures rocephin, azitrho low platelets and bili not related sepsis atypical chest pain check ddimer hepatic steatosis monitor lfts, check viral hepatitis panel, likely gil hld statin GERD continue ppi Incidentalomas 1.2 cm RLL pulmonary nodule concerning for hamartoma. Recommend outpt follow up in [address]/PET/CT or tissue sampling DVT prophylaxis- lovenox Full code reason for continued hospitalization: working up etiology of sepsis, awaiting cultures Time Spent With Patient Time: Total time managing care of this patient today ____ minutes. Quality Stroke Does the patient have a stroke diagnosis?: No VTE Prior VTE?: No VTE Risk Level:: Medical - moderate - high VTE Device Contraindication: Treatment Not Indicated VTE Drug Contraindication: N/A - Med Ordered
[2022-09-02 12:22] LABS: D Dimer High Sensitivity 844 NG/ML
[2022-09-02 12:23] LABS: Alanine Aminotransferase 86 U/L (0-40); Albumin Level 3.3 g/dL (3.5-5.0); Alkaline Phosphatase 122 U/L (39-117); Aspartate Amino Transferase 59 U/L (5-37); Bilirubin Direct 0.6 mg/dL (0.0-0.5); Bilirubin Total 1.2 mg/dL (0.0-1.0); Total Protein 5.9 g/dL (6.5-8.0)
[2022-09-02] MEDS: iohexoL 350 MG/ML 100 ML INFUS..BTL IV (14:45)
[2022-09-02 15:10] VITALS: BP 158/92; PULSE 82; RESP 20; TEMP 36.5; O2SAT 96
--- NOTE | 2022-09-02 15:17 | MHC.CM.PN ---
PATIENT LIVES WITH /HCP COPY REQUESTED. DAUGHTER, GARETT, IS REPORTEDLY SECOND AGENT ON DOCUMENT. NO DME OR VNA SERVICES INDEPENDENT WITH ALL ADLS HOPES FOR HOME - SELF CARE IMM 09/02 IN CHART
[2022-09-02 19:20] VITALS: BP 148/83; PULSE 74; RESP 18; TEMP 36; O2SAT 95
[2022-09-03] MEDS: cefTRIAXone sodium 1 GM in 0.9 % Sodium Chloride 50 ML IV (03:03)
[2022-09-03 03:22] VITALS: BP 143/88; PULSE 72; RESP 16; TEMP 35.9; O2SAT 95
[2022-09-03] MEDS: Azithromycin 500 MG in 0.9 % Sodium Chloride 250 ML 125 MG IV (03:36)
[2022-09-03] MEDS: Omeprazole 20 MG CAPSULE.DR PO (05:39)
[2022-09-03 05:54] LABS: Hematocrit 42.2 % (42.0-52.0); Mean Corpuscular HGB Conc 33.2 g/dl (31.0-36.0); Mean Corpuscular Hemoglobin 29.3 pg (27.0-33.0); Mean Corpuscular Volume 88.3 fL (80.0-98.0); Mean Platelet Volume 11.4 fL (9.4-12.4); Platelet Count 107 X10*3/uL (160-400); Red Blood Count 4.78 X10*6/uL (4.60-5.80); Red Cell Distribution Width 13.3 % (11.0-16.0); White Blood Count 9.8 X10*3/uL (4.8-10.8)
[2022-09-03 06:03] LABS: Anion Gap 13 (12-20); Blood Urea Nitrogen 11 mg/dL (9-16); Calcium 8.4 mg/dL (8.4-10.2); Carbon Dioxide 23 mmol/L (22-29); Chloride 105 mmol/L (96-108); Creatinine Clr Calc Pharmacy 101.6; Estimated Glomerular Filt Rate > 60; Glucose Fasting 123 mg/dL (60-99); Potassium 3.6 mmol/L (3.3-5.1); Sodium 137 mmol/L (135-145)
[2022-09-03 07:23] VITALS: BP 141/82; PULSE 77; RESP 18; TEMP 37.2; O2SAT 96
[2022-09-03] MEDS: Multivitamin TABLET 1 TAB PO (08:45)
[2022-09-03] MEDS: Docusate Sodium 100 MG CAPSULE PO (08:45)
[2022-09-03] MEDS: Enoxaparin Sodium 40 MG/0.4 ML SYRINGE SUBCUT (08:45)
[2022-09-03] MEDS: 0.9 % Sodium Chloride Flush 3 ML SYRINGE IVFLUSH (08:47)
--- NOTE | 2022-09-03 10:59 | PM.DS ---
DS: Providers Provider Date of Service: 09/03/22 Date of admission: 09/01/22 11:20 Primary care physician: Laurent Collado MD DS: Diagnosis Discharge Diagnosis (1) Chest pain: Status: Acute DS: Summary Hospital Course Hospital Course: from initial hpi: 67 year old male with history of GERD, hyperlipidemia who is a former smoker (quit 20+ years ago) presents to the ED earlier today for evaluation of left sided chest pain. He states he feels tightness in the chest that radiates to the back. Worsens with inspiration. He has also felt sweats/chills, general weakness, and myalgia. Endorses mild sob several days ago, but denies currently. Has not taken temperatute. No sick contacts. No sore throat, congestion, abd pain, n/v, urinary symptoms, diarrhea, lightheadedness, palpitations, or retrosternal chest pressure. On arrival, patient febrile to 100.5 with associated tachycardia to 118, tachypnea to 26. No hypoxia or hypotension. There is a leukocytosis 18.5. Renal function normal, lights without significant abnormality. Lactic acid 1.2. Total bili 1.6, AST 85, ALP 122. Trops WNL x2. Negative for flu, rsv, covid-19. CXR showing mild hazy opacity of the RUL, possibly infectious vs inflammatory. CT abd/pelvis showing hepatic steatosis without focal lesion as well as a 1.2cm RLL pulmonary nodule with associated fat within the nodule suggestive of hamartoma. EKG showing NSR, rate 100, nonspecific t wave abnormality unchanged. No LISA or depressions.? In the ED, treated with hydromorphone, azithromycin, ceftriaxone, and acetaminophen. hospital course: Patient was admitted for sepsis due to multifocal pneumonia. He was treated with ceftriaxone azithromycin. Cultures were unremarkable. CTA chest showed multifocal infiltrates. Sepsis resolved, symptoms improved, patient will be discharged on 5 more days levofloxacin. Chest imaging should be repeated in about 1 month. Patient noted to have hepatic steatosis. Viral hepatitis panel was drawn and should be followed up as outpatient., likely this is ARCHER. Hyperlipidemia will continue on statin. For GERD will continue on PPI. Time Spent with Patient Time attestation: Total time managing care of this patient today ____ minutes. Discharge coordination time: Greater than 30 minutes Quality: Safe Use of Opioids Does Pt have an Active Cancer Diagnosis on the Problem List?: No Quality: Stroke Does the patient have a stroke diagnosis?: No Physical Exam Vital Signs: Vital Signs: Last Vital Signs Temp 98.9 F 09/03/22 07:23 Pulse 77 09/03/22 07:23 Resp 18 09/03/22 07:23 BP 141/82 H 09/03/22 07:23 Pulse Ox 96 09/03/22 07:23 O2 Del Method Room Air 09/03/22 07:23 BMI result Body Mass Index 31.4 General: AO X 3, no acute distress Resp: CTA bilateral, no accessory muscles used CVS: S1,S2,RRR GI: soft, non tender, non distended Neuro: motor grossly intact, alert Psych: appropriate affect, appropriate insight DS: Data Data Completed and Pending Labs on day of discharge: Laboratory Results - last 24 hr 09/02/22 09/02/22 09/03/22 11:44 11:44 05:42 WBC 9.8 RBC 4.78 Hgb 14.0 Hct 42.2 MCV 88.3 MCH 29.3 MCHC 33.2 RDW 13.3 Plt Count 107 L MPV 11.4 Absolute Nucleated RBC 0.000 Nucleated RBC % (auto) 0.0 PT 12.0 INR 1.0 D-Dimer High Sensitivty 844 Sodium Potassium Chloride Carbon Dioxide Anion Gap BUN Creatinine Estim Creat Clear Calc Estimated GFR Fasting Glucose Calcium Total Bilirubin 1.2 H Direct Bilirubin 0.6 H AST 59 H ALT 86 H Alkaline Phosphatase 122 H Total Protein 5.9 L Albumin 3.3 L 09/03/22 05:42 WBC RBC Hgb Hct MCV MCH MCHC RDW Plt Count MPV Absolute Nucleated RBC Nucleated RBC % (auto) PT INR D-Dimer High Sensitivty Sodium 137 Potassium 3.6 Chloride 105 Carbon Dioxide 23 Anion Gap 13 BUN 11 Creatinine 0.87 Estim Creat Clear Calc 101.6 Estimated GFR > 60 Fasting Glucose 123 H Calcium 8.4 Total Bilirubin Direct Bilirubin AST ALT Alkaline Phosphatase Total Protein Albumin Preliminary micro results at discharge 09/01/22 03:15 Blood Culture - Preliminary Blood - Venous No growth after 48 hours. 09/01/22 03:15 Blood Culture - Preliminary Blood - Venous No growth after 48 hours. Discharge Plan Discharge Anticipated Discharge Date/Time: 09/03/22 10:55 Patient Disposition: Home, Self-Care Discharge Diagnosis: pneumonia, multifocal Referrals: Laurent Collado MD [Primary Care Provider] - 1 Week Discharge Medications: New levofloxacin 750 mg tablet 750 mg PO DAILY Qty: 5 0RF Continued multivitamin Tablet 1 tab PO DAILY omeprazole 20 mg capsule,delayed release(DR/EC) 20 mg PO DAILY@0630 simvastatin 80 mg tablet 80 mg PO BEDTIME Discharge Orders: Discharge Order (Routine); Ordered 09/03/22 Ordered By: Tim Fisher Diet: Advance to usual diet Activity on Discharge: As tolerated Stand Alone Forms: Patient Portal Discharge page Other Ambulatory Orders: XR chest 1V (Routine) Timeframe: 1 Month Facility: [facility] - Location: Radiology Ordered By: Tim Fisher Care Plan Goals: recovery Health Concerns: multifocal pneumonia Plan of Treatment: 5 days levaquin, repeat chest imaging in 1 month Assessment: see above
[2022-09-04 08:03] LABS: HBS Num1 0.11 mIU/mL (0-7.99); HBc Num1 0.14 S/CO (0.00-0.79); HBsAGNum1 0.41 S/CO (0.00-0.99); Hepatitis B Core Antibody Nonreactive (Nonreactive); Hepatitis B Surface Antigen Negative (Negative); ~Hepatitis B Surface Antibody NONREACTIVE (Nonreactive); ~Hepatitis C Antibody Nonreactive (Nonreactive)
[2022-09-05 23:03] LABS: Strep Pneumo Ag urine Not Detected (Not Detected)
[2022-09-09 08:49] LABS: Legionella Ag Urine Not Detected (Not Detected)
== END 2022-09-03 11:27 | disposition home or self-care (01) | DRG 871 ==
LOC: HO.ED 08:11 → HO.EDOVER 11:24 → HO.S3 15:29
PROVIDERS: Admitting Provider Physician Assistant; Emergency Provider Emergency Medicine Emergency Medical Services; PCP Internal Medicine; Visit Provider Internal Medicine
DX: A41.9 Sepsis, unspecified organism (principal); J18.9 Pneumonia, unspecified organism; Q85.9 Phakomatosis, unspecified; E78.00 Pure hypercholesterolemia, unspecified; Z20.822 Contact with and (suspected) exposure to COVID-19; Z87.891 Personal history of nicotine dependence; Z88.0 Allergy status to penicillin; Z79.899 Other long term (current) drug therapy; K76.0 Fatty (change of) liver, not elsewhere classified
CPT/HCPCS: 0241U; 36415; 71045; 71046; 71275; 74177; 80048; 80053; 80076; 82947; 83605; 84484; 85025; 85027; 85379; 85610; 86704; 86706; 86803; 87040; 87340; 87449; 87899; 93005; 99285; J0456; J0696; J1170; J1650; J2270; Q9967

== ENCOUNTER 2022-10-13 10:03 | Outpatient (REF) | payer MEDICARE, OTHER, SELFPAY ==
--- NOTE | ~2022-10-13 | XR_ITS ---
EXAMINATION: XR CHEST 2 VIEWS CLINICAL INFORMATION: Follow-up pneumonia. COMPARISON: CTA chest and chest radiograph dated 09/02/2022. TECHNIQUE: Frontal and lateral views of the chest were obtained. FINDINGS: The heart, great vessels, pulmonary vasculature and mediastinum are normal. A small residual right upper lobe infiltrate is noted. There is no pleural effusion or pneumothorax. There is no acute osseous abnormality. XR/XR chest 2V IMPRESSION: A persistent, slightly diminished right upper lobe opacity is noted. Recommend short-term follow-up chest radiographs to ensure full clearance and exclude the possibility of underlying obstructive process.
== END 2022-10-13 10:04 | disposition home or self-care (01) ==
LOC: HO.XRAY 10:03
PROVIDERS: PCP Internal Medicine; Visit Provider Internal Medicine
DX: Z87.01 Personal history of pneumonia (recurrent) (principal)
CPT/HCPCS: 71046

== ENCOUNTER 2022-10-16 10:56 | Outpatient (AMB) | payer MEDICARE, OTHER, SELFPAY ==
[2022-10-16 10:59] VITALS: BP 136/78; PULSE 71; BMI 31.7
--- NOTE | 2022-10-16 10:59 | A.OFFVIS_ITS ---
Intake Vital Signs 10/16/22 10:59 Height 5 ft 11 in Weight 227 lb 1.218 oz BMI 31.7 BP 136/78 Blood Pressure Location Lt brachial Position Sitting Pulse 71 Intake Visit Reasons: NPV/Croke/dyspnea/family history/abnormal st Intake Note: NPV Ginner Helper Required: No Accompanied by: Self / Same As Patient Allergies amoxicillin [Amoxicillin] Allergy (Mild, Verified 10/16/22 11:02) RASH Penicillins Allergy (Mild, Verified 10/16/22 11:02) HIVES Medication List - Last Reconciled 10/16/22 by Mark Degroot MD ibuprofen 600 mg PO Q8H PRN multivitamin 1 tab PO DAILY omeprazole 20 mg PO DAILY@0630 simvastatin 80 mg PO BEDTIME HPI HPI Comments History of Present Illness Details Alexei is here for consultation regarding coronary disease. Brother apparently had a fatal myocardial infarction/cardiac arrest few months back and hence he is concerned. Brother was in fact a few years ago to him. Patient himself does not have any documented coronary disease or myocardial infarction or cardiomyopathy. History of smoking in the past many years ago but nothing recently. His blood pressures have been high off and on but he is not on any regular medications. On statins. Otherwise, he gets some random chest pains but nothing clearly anginal sounding. Recently admitted to the hospital for pneumonia. At that time, had CTA which described LAD calcification. [facility] Medical History Atherosclerotic cardiovascular disease GERD (gastroesophageal reflux disease) High cholesterol Family History Maternal Grandmother Diabetes Brother Heart attack Heart problem Father No problems noted. Mother No problems noted. Social History Household Members: Spouse Housing: House Do you presently have visiting nurse or other home services: No Alcohol intake: current Alcohol intake frequency: a few times a month Patient Tobacco Use Status: Former Tobacco user Quit Date: 30+ years Substance Use Type: Marijuana service: No Current occupational status: employed Review of Systems Const Denies chills, Denies daytime sleepiness, Denies fatigue, Denies fever(s), Denies frequent falls, Denies night sweats, Denies snoring, Denies weakness, Denies weight gain and Denies weight loss Eyes Denies loss of vision ENT Denies dizziness and Denies hearing loss Card Denies chest pain, Denies chest pain with activity, Denies syncope, Denies rapid heart rate, Denies edema, Denies claudication, Denies leg edema, Denies lightheadedness, Denies palpitations, Denies dyspnea, Denies dyspnea on exertion and Denies orthopnea Resp Denies cough, Denies excessive phlegm production, Denies dyspnea, Denies dyspnea on exertion, Denies snoring and Denies wheezing GI Denies abdominal pain, Denies hematochezia, Denies change in bowel habits, Denies change in stool character, Denies heartburn, Denies nausea and Denies vomiting Denies hematuria, Denies dysuria and Denies urinary frequency Musc Denies arthralgias, Denies muscle weakness, Denies numbness and Denies tingling Skin/Breast Denies nail changes and Denies rash Neuro Denies Abnormal speech present, Denies dizziness, Denies syncope, Denies frequent falls, Denies loss of vision, Denies memory loss, Denies numbness, Denies tingling and Denies weakness Psych Denies depression and Denies memory loss Endo Denies fatigue and Denies palpitations Aller/Immun Denies wheezing Physical Exam Vital Signs: Last Vital Signs Pulse 71 10/16/22 10:59 BP 136/78 10/16/22 10:59 BMI result Body Mass Index 31.7 Const General: comfortable and no acute distress Orientation/consciousness: patient oriented x3 HEENT Other: Unremarkable Head: Yes normal to inspection Neck Neck: Yes normal visual inspection Chest Chest palpation & inspection: normal inspection of the chest Resp Auscultation: clear to auscultation bilaterally Cardio Palpation: normal PMI Heart sounds: S1 normal heart sound present, S2 normal heart sound present, no gallops, no murmurs and no rubs GI Palpation (GI): Soft to palpation Back/Spine/Pelvis Other: unremarkable Skin General skin exam: no rashes or lesions noted Neuro General: patient oriented x3 Speech: No Abnormal speech present Extrem General: Yes normal to inspection Psych Mental Status: mental status grossly normal Assessment & Plan Assessment & Plan (1) Atherosclerotic cardiovascular disease: Code(s): I25.10 - Atherosclerotic heart disease of [place] coronary artery without angina pectoris (2) Family history of myocardial infarction: Code(s): Z82.49 - Family history of ischemic heart disease and other diseases of the circulatory system Plan Baseline EKG shows sinus rhythm and nonspecific ST-T changes. In the stress test, he was able to exercise only for 4 minutes on the Presley protocol. Had occasional PVCs. No angina. In the chest CTA, there is description of LAD calcification. Overall, clearly needs assessment for extent of CAD. We can do a coronary CTA and echocardiogram. Once these are completed, we can follow-up. Plan discussed with patient and he is agreeable. Orders: Orders CA echo transthoracic complete Today I25.10 - Atherosclerotic heart disease of [place] coronary artery without angina pectoris CT Cardiac Coronary Angio Today I25.10 - Atherosclerotic heart disease of [place] coronary artery without angina pectoris Basic Metabolic Panel Today I25.10 - Atherosclerotic heart disease of [place] coronary artery without angina pectoris Coding Level of Care Code New Pt Level 4 (68492) Diagnoses Atherosclerotic cardiovascular disease I25.10 Family history of myocardial infarction Z82.49
== END 2022-10-16 11:29 | disposition home or self-care (01) ==
PROVIDERS: PCP Internal Medicine; Visit Provider Internal Medicine
DX: I25.10 Atherosclerotic heart disease of native coronary artery without angina pectoris (principal); Z82.49 Family history of ischemic heart disease and other diseases of the circulatory system
CPT/HCPCS: 99214

== ENCOUNTER → 2022-10-16 10:56 | Outpatient (BNVA) | payer MEDICARE, OTHER, SELFPAY | PROVIDERS: PCP Internal Medicine; Visit Provider Internal Medicine | DX: I25.10 Atherosclerotic heart disease of native coronary artery without angina pectoris (principal); Z82.49 Family history of ischemic heart disease and other diseases of the circulatory system | CPT/HCPCS: 99212 ==

== ENCOUNTER 2022-11-06 09:00 | Emergency (ER) | payer MEDICARE, OTHER, SELFPAY ==
--- NOTE | ~2022-11-06 | XR_ITS ---
EXAMINATION: XR CHEST CLINICAL INFORMATION: Chest tightness COMPARISON: Chest x-ray October 13, 2022 TECHNIQUE: Frontal view of the chest was obtained. FINDINGS: Cardiac silhouette is normal in size. The lungs are well aerated. There is no lobar consolidation. No pleural effusion or pneumothorax. Previously noted right upper lobe opacity again demonstrate interval decrease in prominence, now with only a subtle linear opacity persisting in that region. XR/XR chest 1V IMPRESSION: Interval decrease in prominence of previously noted right upper lobe opacity, now with only a subtle linear opacity persisting in that region.
--- NOTE | 2022-11-06 09:02 | ECG_ITS ---
Test Reason : chest tightness Blood Pressure : / mmHG Vent. Rate : 072 BPM Atrial Rate : 072 BPM P-R Int : 132 ms QRS Dur : 086 ms QT Int : 382 ms P-R-T Axes : 059 033 064 degrees QTc Int : 418 ms Normal sinus rhythm Normal ECG When compared with ECG of 01-SEP-2022 01:20, Nonspecific T wave abnormality, improved in Inferior leads Referred By: Generic ED Physician Electronically Signed By:Luke Koch
[2022-11-06 09:10] VITALS: BP 200/107; PULSE 77; RESP 16; TEMP 36.6; O2SAT 97; BMI 31.9
[2022-11-06 09:39] VITALS: BP 171/97; PULSE 66; RESP 18; TEMP 36.9; O2SAT 98
[2022-11-06 09:47] LABS: MANUAL DIFF FLAG NO
--- NOTE | 2022-11-06 09:48 | ED.GENADULT ---
HPI - General Adult General Chief complaint: Dyspnea Stated complaint: Chest Pain SOB Time Seen by Provider: 11/06/22 09:48 Source: patient, RN notes reviewed and old records reviewed Mode of arrival: ambulatory Limitations: no limitations History of Present Illness HPI narrative: 67-year old male with PMHx significant for CAD, HDL, GERD, and recent multifocal PNA requiring admission presents to the ED today with complaints of chest tightness, dyspnea at rest, inability to take a full breath, and fatigue x3 days. He was admitted to our facility 2 mos ago for PNA and d/c home on Levaquin. Admits to having follow-up CXR w/ his PCP. Reports today symptoms are similar to his prior PNA diagnosis. Took Excedrin last night with some relief. Denies fever chills, N/V/D, cough, palpitations, LE swelling/pain, recent travel, tobacco smoking, trauma/injury. Related Data Home Medications Medication Instructions Recorded Confirmed omeprazole 20 mg capsule,delayed 20 mg PO DAILY@0630 04/17/21 10/16/22 release simvastatin 80 mg tablet 80 mg PO BEDTIME 04/17/21 10/16/22 multivitamin 1 tab PO DAILY 09/01/22 10/16/22 ibuprofen 600 mg tablet 600 mg PO Q8H PRN 10/16/22 10/16/22 Allergies Allergy/AdvReac Type Severity Reaction Status Date / Time amoxicillin [Amoxicillin] Allergy Mild RASH Verified 11/06/22 09:10 Penicillins Allergy Mild HIVES Verified 11/06/22 09:10 Review of Systems Review of Systems: Constitutional: No Fever, No Chills, + Fatigue Eyes: No Eye Pain, No Swelling, No Redness Cardiovascular: + Chest tightness, + SOB, No LERMA, No Orthopnea, No Edema, No Palpitations Respiratory: No Cough, No Sputum, No Wheezing, + Dyspnea Gastrointestinal: No Nausea, No Vomiting, No Diarrhea, No Constipation, No Abdominal pain Genitourinary: No Dysuria, No Urinary Frequency, No Hematuria, No Urinary Incontinence/retention, No Flank Pain Musculoskeletal: No joint pain, No Myalgias, No Joint Swelling Skin: No Skin Lesions, No rash Neuro: No Weakness, No Numbness, No Loss of Consciousness, No Dizziness, No Headache Yes all other systems are reviewed and are negative Constitutional: Constitutional: Reports as per [facility] Past Medical History Attestation statement: The following information was validated with the patient. Source: old records reviewed Medical History (Updated 11/06/22 @ 13:24 by MEENA Waddell) Atherosclerotic cardiovascular disease Chest pain GERD (gastroesophageal reflux disease) High cholesterol Rash and nonspecific skin eruption Sepsis Family History Family History Maternal Grandmother Diabetes Brother Heart attack Heart problem Father No problems noted. Mother No problems noted. Social History Social History Household Members: Spouse Housing: House Do you presently have visiting nurse or other home services: No Alcohol intake: current Alcohol intake frequency: a few times a month Patient Tobacco Use Status: Former Tobacco user Quit Date: 30+ years Substance Use Type: Marijuana Advance Directives: No Advance Directives Information Provided: No service: No Current occupational status: employed Physical Exam ED Vital Signs: Vital Signs - 24 hr 11/06/22 09:10 11/06/22 09:39 11/06/22 10:28 Temperature 97.8 F 98.5 F Pulse Rate 77 66 Respiratory Rate 16 18 Blood Pressure 200/107 H 171/97 H Pulse Oximetry 97 98 97 Oxygen Delivery Method Room Air Room Air 11/06/22 11:31 Temperature 98.3 F Pulse Rate 64 Respiratory Rate 16 Blood Pressure 150/96 H Pulse Oximetry 97 Oxygen Delivery Method Room Air BMI result Body Mass Index 31.9 Const General: cooperative, healthy appearing and no acute distress Orientation/consciousness: patient oriented x3 Limitations: no limitations [facility] Head: Yes normal to inspection and Yes atraumatic Ears: hearing grossly normal bilaterally General nose exam: Normal external nose present Face and sinus: Yes normal facial exam Eyes General: appearance normal, both eyes and all related structures EOM: EOMs intact bilaterally Neck Neck: Yes normal visual inspection and Yes no meningeal signs Resp Effort & Inspection: normal respiratory effort and no respiratory distress Auscultation: clear to auscultation bilaterally, no crackles, no rales and no wheezes Cardio Rate: regular rate Heart sounds: S1 normal heart sound present and S2 normal heart sound present GI Inspection: Yes normal to inspection Palpation (GI): Soft to palpation, nontender, no guarding and not rigid General: Yes no CVA tenderness Back/Spine/Pelvis Back: no CVA tenderness Skin Rashes: no rashes Wounds: no wounds Neuro General: patient oriented x3, tone normal and no meningeal signs Cranial nerves: Yes CN's II-XII intact bilaterally Gait exam (Neuro): Normal gait present Extrem General: Yes normal to inspection, Yes no pedal edema and Yes no calf tenderness Course Course Course Narrative: -no leukocytosis. Labs otherwise reassuring. Troponin negative. BNP WNL -ambulated with pulse ox maintaining saturation 97% or greater > due to recent hospitalization and continued symptoms will obtain D-dimer and viral testing -1235-- d-dimer negative. Can rule out VTE. COVID and flu negative Results discussed with patient including worrisome signs and symptoms and strict return precautions, and when to return to the emergency department. They verbalized understanding and feel safe for discharge at this time. Medical Decision Making Medical Decision Making MDM Narrative: 67-year old male with PMHx significant for CVD, HDL, GERD, and recent multifocal PNA requiring admission presents to the ED today with complaints of chest tightness, dyspnea at rest, inability to take a full breath, and fatigue x3 days. VSS, nontoxic appearing, NAD. Physical exam unremarkable. Lungs CTA b/l. No JVD or peripheral edema. Abd soft, nontender to palpation, no rebound or guarding. Concern for PNA vs pneumothorax vs pleuritis vs MSK pain vs arrythmia vs electrolyte abnormalities. Lower suspicion for PE vs DVT vs CHF vs ACS vs pancreatitis. Unlikely dissection, endocarditis, myocarditis, pericarditis. Plan: labs, EKG, CXR Please refer to course for remaining clinical decision making, interpretation of labs/imaging results, and discussions with consultants and/or family members. Differential Diagnosis Differential Diagnoses: The differential diagnosis associated with the presentation includes As above Admission/Observation Consideration of admission/observation: Escalation of care including admission/observation considered Lab Data [facility] Lab Attestation statement: I reviewed the patient's lab results. 11/06/22 09:43 11/06/22 09:43 Labs: Lab Results 11/06/22 11/06/22 11/06/22 Range/Units 09:43 09:43 09:43 WBC 8.7 (4.8-10.8) X10*3/uL RBC 5.57 (4.60-5.80) X10*6/uL Hgb 16.3 (14.0-18.0) g/dl Hct 48.9 (42.0-52.0) % MCV 87.8 (80.0-98.0) fL MCH 29.3 (27.0-33.0) pg MCHC 33.3 (31.0-36.0) g/dl RDW 12.7 (11.0-16.0) % Plt Count 173 D (160-400) X10*3/uL MPV 10.3 (9.4-12.4) fL Immature Gran % (Auto) 1.3 H (0.0-0.4) % Neut % (Auto) 61.2 (45-73) % Lymph % (Auto) 26.6 (20-40) % [place] % (Auto) 7.7 (2-11) % Eos % (Auto) 2.6 (0-4) % Baso % (Auto) 0.6 (0-2) % Lymph # (Auto) 2.3 (1.2-4.9) X10*3/uL [place] # (Auto) 0.7 (0.1-1.2) X10*3/uL Eos # (Auto) 0.2 (0.0-0.4) X10*3/uL Baso # (Auto) 0.1 (0.0-0.2) X10*3/uL Abs Immat Gran (auto) 0.11 H (0.00-0.03) X10*3/uL Absolute Neuts (auto) 5.3 (2.0-8.3) x10*3/uL Absolute Nucleated RBC 0.000 (0.0-0.012) X10*3/uL Nucleated RBC % (auto) 0.0 (0.0-0.2) /100WBC D-Dimer High Sensitivty NG/ML Sodium 139 (135-145) mmol/L Potassium 3.9 (3.3-5.1) mmol/L Chloride 107 (96-108) mmol/L Carbon Dioxide 23 (22-29) mmol/L Anion Gap 13 (12-20) BUN 12 (9-16) mg/dL Creatinine 1.08 (0.5-1.4) mg/dL Estim Creat Clear Calc 82.5 Estimated GFR > 60 Random Glucose 124 H (60-115) mg/dL Calcium 9.9 D (8.4-10.2) mg/dL Total Bilirubin 0.8 (0.0-1.0) mg/dL Direct Bilirubin 0.2 (0.0-0.5) mg/dL AST 31 (5-37) U/L ALT 43 H (0-40) U/L Alkaline Phosphatase 65 (39-117) U/L Troponin I High Sens 3.4 D (<3.5-35.0) ng/L B-Natriuretic Peptide (<100) pg/mL Total Protein 7.6 (6.5-8.0) g/dL Albumin 4.1 (3.5-5.0) g/dL COVID-19 (JOSETTE) (Negative) COVID-19 Clin Com Influenza Type A (JAVIER) (Negative) Influenza Type B (JAVIER) (Negative) Influenza A & B Note 11/06/22 11/06/22 11/06/22 Range/Units 09:43 11:23 11:23 WBC (4.8-10.8) X10*3/uL RBC (4.60-5.80) X10*6/uL Hgb (14.0-18.0) g/dl Hct (42.0-52.0) % MCV (80.0-98.0) fL MCH (27.0-33.0) pg MCHC (31.0-36.0) g/dl RDW (11.0-16.0) % Plt Count (160-400) X10*3/uL MPV (9.4-12.4) fL Immature Gran % (Auto) (0.0-0.4) % Neut % (Auto) (45-73) % Lymph % (Auto) (20-40) % [place] % (Auto) (2-11) % Eos % (Auto) (0-4) % Baso % (Auto) (0-2) % Lymph # (Auto) (1.2-4.9) X10*3/uL [place] # (Auto) (0.1-1.2) X10*3/uL Eos # (Auto) (0.0-0.4) X10*3/uL Baso # (Auto) (0.0-0.2) X10*3/uL Abs Immat Gran (auto) (0.00-0.03) X10*3/uL Absolute Neuts (auto) (2.0-8.3) x10*3/uL Absolute Nucleated RBC (0.0-0.012) X10*3/uL Nucleated RBC % (auto) (0.0-0.2) /100WBC D-Dimer High Sensitivty NG/ML Sodium (135-145) mmol/L Potassium (3.3-5.1) mmol/L Chloride (96-108) mmol/L Carbon Dioxide (22-29) mmol/L Anion Gap (12-20) BUN (9-16) mg/dL Creatinine (0.5-1.4) mg/dL Estim Creat Clear Calc Estimated GFR Random Glucose (60-115) mg/dL Calcium (8.4-10.2) mg/dL Total Bilirubin (0.0-1.0) mg/dL Direct Bilirubin (0.0-0.5) mg/dL AST (5-37) U/L ALT (0-40) U/L Alkaline Phosphatase (39-117) U/L Troponin I High Sens (<3.5-35.0) ng/L B-Natriuretic Peptide 12 (<100) pg/mL Total Protein (6.5-8.0) g/dL Albumin (3.5-5.0) g/dL COVID-19 (JOSETTE) Negative (Negative) COVID-19 Clin Com See Note Influenza Type A (JAVIER) Negative (Negative) Influenza Type B (JAVIER) Negative (Negative) Influenza A & B Note See Note 11/06/22 Range/Units 11:32 WBC (4.8-10.8) X10*3/uL RBC (4.60-5.80) X10*6/uL Hgb (14.0-18.0) g/dl Hct (42.0-52.0) % MCV (80.0-98.0) fL MCH (27.0-33.0) pg MCHC (31.0-36.0) g/dl RDW (11.0-16.0) % Plt Count (160-400) X10*3/uL MPV (9.4-12.4) fL Immature Gran % (Auto) (0.0-0.4) % Neut % (Auto) (45-73) % Lymph % (Auto) (20-40) % [place] % (Auto) (2-11) % Eos % (Auto) (0-4) % Baso % (Auto) (0-2) % Lymph # (Auto) (1.2-4.9) X10*3/uL [place] # (Auto) (0.1-1.2) X10*3/uL Eos # (Auto) (0.0-0.4) X10*3/uL Baso # (Auto) (0.0-0.2) X10*3/uL Abs Immat Gran (auto) (0.00-0.03) X10*3/uL Absolute Neuts (auto) (2.0-8.3) x10*3/uL Absolute Nucleated RBC (0.0-0.012) X10*3/uL Nucleated RBC % (auto) (0.0-0.2) /100WBC D-Dimer High Sensitivty 150 NG/ML Sodium (135-145) mmol/L Potassium (3.3-5.1) mmol/L Chloride (96-108) mmol/L Carbon Dioxide (22-29) mmol/L Anion Gap (12-20) BUN (9-16) mg/dL Creatinine (0.5-1.4) mg/dL Estim Creat Clear Calc Estimated GFR Random Glucose (60-115) mg/dL Calcium (8.4-10.2) mg/dL Total Bilirubin (0.0-1.0) mg/dL Direct Bilirubin (0.0-0.5) mg/dL AST (5-37) U/L ALT (0-40) U/L Alkaline Phosphatase (39-117) U/L Troponin I High Sens (<3.5-35.0) ng/L B-Natriuretic Peptide (<100) pg/mL Total Protein (6.5-8.0) g/dL Albumin (3.5-5.0) g/dL COVID-19 (JOSETTE) (Negative) COVID-19 Clin Com Influenza Type A (JAVIER) (Negative) Influenza Type B (JAVIER) (Negative) Influenza A & B Note Independent Interpretation I performed an independent interpretation of an: EKG (EKG with normal sinus rhythm, rate of 72 bpm, QT of 382, no STEMI.) and Plain X-Ray Radiology Impression Discussion of test interpretation with radiology: I have reviewed the radiologist's reading. Radiologist Impression: XR chest 1V IMPRESSION: Interval decrease in prominence of previously noted right upper lobe opacity, now with only a subtle linear opacity persisting in that region. External Record Review External record reviewed: Inpatient record, Office record, Outpatient record, Prior outpatient labs, Prior outpatient radiology, Primary care record and Outside ED record Tests considered The following testing was considered but not selected: As above Prescription Management I considered prescription management with: Pain Medication Chronic Conditions Patient?s care impacted by: Other (CVD, PNA) Discharge Plan Discharge Clinical Impression: Atypical chest pain Patient Disposition: Home, Self-Care Instructions: Chest Pain (DC) Additional Instructions: Your blood work and chest x-ray were reassuring. You have resolving pneumonia Continue to follow-up with her primary care doctor Continue home medications If symptoms persist or worsen return to the ED Prescriptions: No Action multivitamin Tablet 1 tab PO DAILY omeprazole 20 mg capsule,delayed release(DR/EC) 20 mg PO DAILY@0630 simvastatin 80 mg tablet 80 mg PO BEDTIME ibuprofen 600 mg tablet 600 mg PO Q8H PRN Referrals: Laurent Collado MD [Primary Care Provider] - 5 days Interventions: ED Discharge Assessment Last Done: 11/06/22 13:35 Discharge Date/Time: 11/06/22 13:35
[2022-11-06 09:49] LABS: Basophils Absolute Auto 0.1 X10*3/uL (0.0-0.2); Basophils Percent Auto 0.6 % (0-2); Eosinophils Absolute Auto 0.2 X10*3/uL (0.0-0.4); Eosinophils Percent Auto 2.6 % (0-4); Hematocrit 48.9 % (42.0-52.0); Hemoglobin 16.3 g/dl (14.0-18.0); Imm Gran Abs Auto 0.11 X10*3/uL (0.00-0.03); Imm Gran Pct Auto 1.3 % (0.0-0.4); Lymphocytes Absolute Auto 2.3 X10*3/uL (1.2-4.9); Lymphocytes Percent Auto 26.6 % (20-40); Mean Corpuscular HGB Conc 33.3 g/dl (31.0-36.0); Mean Corpuscular Hemoglobin 29.3 pg (27.0-33.0); Mean Corpuscular Volume 87.8 fL (80.0-98.0); Mean Platelet Volume 10.3 fL (9.4-12.4); Monocytes Absolute Auto 0.7 X10*3/uL (0.1-1.2); Monocytes Percent Auto 7.7 % (2-11); Neutrophils Absolute Auto 5.3 x10*3/uL (2.0-8.3); Neutrophils Percent Auto 61.2 % (45-73); Platelet Count 173 X10*3/uL (160-400); Red Blood Count 5.57 X10*6/uL (4.60-5.80); Red Cell Distribution Width 12.7 % (11.0-16.0); White Blood Count 8.7 X10*3/uL (4.8-10.8)
--- OUTSIDE RECORDS SUMMARY | 2022-11-06 10:08 | XMS_ITS ---
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 Name Role Phone Mady Pramod Unavailable [phone] PROBLEMS Type Condition ICD9-CM Code QRH51-EB Code Onset Dates Condition Status SNOMED Code Problem Reflux esophagitis 530.11 Active 721354317 Problem Esophageal reflux 530.81 Active Problem GERD (gastroesophagea l reflux disease) 530.81 Active 481838164 Problem Colon cancer screening V76.51 Active 019681062 Problem Hiatal hernia 553.3 Active 34803230 ALLERGIES Substance Reaction Event Type Date Status Amoxicillin Unknown Drug Allergy Nov, Active ENCOUNTERS Encounter Location Date Diagnosis [facility] [address] [place] [phone] July, [facility] [address] [place] [phone] Nov, Reflux esophagitis 530.11 ; Esophageal reflux 530.81 ; Hiatal hernia 553.3 and Colon cancer screening V76.51 [facility] [address] [place] [phone] Aug, [facility] [address] [place] [phone] Aug, [facility] [address] [place] [phone] Jun, [facility] [address] [place] [phone] Jun, [facility] [address] [place] [address] Jun, GERD (gastroesophageal reflux disease) 530.81 and Colon cancer screening V76.51 [facility] [address] [place] [address] Mar, IMMUNIZATIONS No Known Immunizations SOCIAL HISTORY Never Assessed REASON FOR REFERRAL FUNCTIONAL STATUS PLAN OF CARE Activity Details VITAL SIGNS Weight 211 lbs 2012-12-14 Weight 210 lbs 2012-07-05 Height N/A in 2012-12-14 Height 71 in 2012-07-05 BMI 29.43 kg/m2 2012-12-14 BMI 29.29 kg/m2 2012-07-05 Heart Rate 80 /min 2012-12-14 Heart Rate 72 /min 2012-07-05 Blood pressure systolic 110 mm Hg Blood pressure diastolic 80 mm Hg 2012-11 MEDICATIONS Medication Instructions Dosage Frequency Start Date End Date Du ration Status Simvastatin 80mg Active Omeprazole 20 MG TAKE 1 CAPSULE EVERY MORNING 30 Active PROCEDURES No Known procedures RESULTS Name Result Date Reference Range GI BIOPSY 2012-09-02 G.I. BIOPSY REASON FOR VISIT Patient presents today for COLONOSCOPY RECALL, r/f request omeprazole, 3 month check, NEEDS F/U WITH DR SEGAL IN [place], GERD/Screening Colonoscopy , PA for Procedures, bowel prep rx, pre-colon, noshow, colorectal cancer screening Insurance Providers Health Insurance Type Health Plan Insurance Address Health Plan Insurance Phone Health Plan Insurance Name Health Plan Coverage Dates Member ID Patient Relationship to Subscriber Patient Address Patient Phone Patient Name Patient Date of Subscriber ID Subscriber Name Subscriber Date of Group No [employer] [address] [address] [facility] [address] [employer] self LÁZARO DUENAS [id number] [place] [address] [facility] [address] [place]ZARO DUENAS [id number] [employer] [place] [address] [facility] [id number] [phone] [employer] [place] self LÁZARO DUENAS [id number]
[2022-11-06 10:12] LABS: Anion Gap 13 (12-20); Blood Urea Nitrogen 12 mg/dL (9-16); Calcium 9.9 mg/dL (8.4-10.2); Carbon Dioxide 23 mmol/L (22-29); Chloride 107 mmol/L (96-108); Creatinine Clr Calc Pharmacy 82.5; Estimated Glomerular Filt Rate > 60; Glucose Random 124 mg/dL (60-115); Potassium 3.9 mmol/L (3.3-5.1); Sodium 139 mmol/L (135-145)
[2022-11-06 10:18] LABS: Troponin-I High Sensitivity 3.4 ng/L (<3.5-35.0)
[2022-11-06 10:28] VITALS: O2SAT 97
[2022-11-06 10:34] LABS: Alanine Aminotransferase 43 U/L (0-40); Albumin Level 4.1 g/dL (3.5-5.0); Alkaline Phosphatase 65 U/L (39-117); Aspartate Amino Transferase 31 U/L (5-37); Bilirubin Direct 0.2 mg/dL (0.0-0.5); Bilirubin Total 0.8 mg/dL (0.0-1.0); Total Protein 7.6 g/dL (6.5-8.0)
[2022-11-06 10:39] LABS: B Type Natriuretic Peptide 12 pg/mL (<100)
[2022-11-06 11:31] VITALS: BP 150/96; PULSE 64; RESP 16; TEMP 36.8; O2SAT 97
--- NOTE | 2022-11-06 11:41 | PC.NURSE ---
continues to deny any pain, endorsing shortness of breath. d dimer obtained, swabs sent to lab. call esparza within reach, pt aware of plan.
[2022-11-06 11:53] LABS: COVID-19 Test Negative (Negative); IDNOW Serial# 08D9AD1C; IDNOW Serial# BCCEAD1C; Influenza A Negative (Negative); Influenza B2 Negative (Negative)
[2022-11-06 11:54] LABS: D Dimer High Sensitivity 150 NG/ML
== END 2022-11-06 13:35 | disposition home or self-care (01) ==
PROVIDERS: Physician Assistant; Emergency Provider Emergency Medicine Emergency Medical Services; PCP Internal Medicine
DX: R07.89 Other chest pain (principal); R06.02 Shortness of breath; E78.5 Hyperlipidemia, unspecified; F12.90 Cannabis use, unspecified, uncomplicated; Z87.891 Personal history of nicotine dependence; Z79.899 Other long term (current) drug therapy; Z20.822 Contact with and (suspected) exposure to COVID-19
CPT/HCPCS: 36415; 71045; 80048; 80076; 83880; 84484; 85025; 85379; 87502; 87635; 93005; 99283; 99285

== ENCOUNTER → 2022-11-06 09:02 | Outpatient (BNV) | payer MEDICARE, OTHER, SELFPAY | PROVIDERS: Emergency Provider Emergency Medicine Emergency Medical Services; PCP Internal Medicine; Visit Provider Internal Medicine Cardiovascular Disease | DX: R07.89 Other chest pain (principal) | CPT/HCPCS: 93010 ==

== ENCOUNTER → 2022-11-24 12:49 | Outpatient (REF) | payer MEDICARE, OTHER, SELFPAY ==
--- NOTE | 2022-11-24 12:52 | CA_ITS ---
Transthoracic Echocardiogram Patient (Last, First, Middle): Alexei Arechiga R Gender: Male Date of : 1955 Age: 67 Procedure Date: 11/24/2022 Procedure Type: Transthoracic Echocardiogram Location: OP Height: 180.34 cm Weight: 104.33 kg BSA: 2.24 m2 Heart Rate: 69 bpm BP: 124 / 80 mmHg Beverage Server: Referring MD: Mark Degroot MD Symptoms: I25.10 - Atherosclerotic heart disease of [place] coronary artery without... Study Quality: Adequate ECG Rhythm: Sinus Conclusions: - The left ventricular systolic function is low normal. The visually estimated ejection fraction is between 50-55%. - No obvious valvular pathology seen on this study. Findings Left Ventricle Normal left ventricular cavity size. There is mildly increased left ventricular wall thickness. The left ventricular systolic function is low normal. The visually estimated ejection fraction is between 50-55%. There is no evidence of regional wall motion abnormalities. Evidence suggests grade I (mild) diastolic dysfunction. Right Ventricle Normal right ventricular cavity size and systolic function. Atria Both atria are normal in size. Aortic Valve There is a normal trileaflet aortic valve. There is no aortic valve stenosis. There is no aortic valve regurgitation. Mitral Valve The mitral valve appears normal. There is no mitral valve regurgitation. There is no mitral valve stenosis. Pulmonic Valve The pulmonic valve is likely normal. Tricuspid Valve Normal tricuspid valve structure. There is trace tricuspid valve regurgitation. There is no evidence of pulmonary hypertension. Great Vessels The asc aorta is normal in size. Venous The inferior vena cava is normal in size and collapses greater than 50% with inspiration. Pericardium/Pleural There is no evidence of pericardial effusion. Prior Study Comparison No significant change compared to prior study dated: 05/03/2007. Recommendations, Care & Conclusions No obvious valvular pathology seen on this study. Measurements 2D Linear Measurements IVSd: 1.15 0.6-0.9/0.6-1.0 cm LVIDd: 4.29 3.9-5.3/4.2-5.9 cm LVIDd Index: 1.92 2.4-3.2/2.2-3.1 cm/m2 LVIDs: 3.03 2.0-3.6 cm LVPWd: 1.08 0.7-1.1 cm Ao Root: 3.40 2.1-3.5 cm LA Diam: 3.80 2.7-3.8/3.0-4.0 cm LAIDs Index: 1.70 1.5-2.3 cm/m2 LV Mass: 206.14 67-162/88-224 g LV Mass Index: 92.03 43-95/49-115 g/m2 LVOT Diam: 2.40 3.0+(-)1.3 cm 2D Systolic Function EF 4C: 57.40 >55% EF 2C: 53.60 >55% EF BiP: 55.70 >55% Mitral Valve MV Pk E: 0.44 MV PK A: 0.83 MV Decel Time: 192.00 E/A: 0.50 E'Lateral: 5.55 E'Medial: 5.11 E/E' Med: 8.60 E/E' Lat: 7.90 PHT: 56.00 MVA PHT: 3.93 Decel Victoria: 2.27 Aortic Valve AoV Pk Jarrod: 1.22 AoV Mn Jarrod: 0.72 AoV VTI: 0.24 AoV Pk Grad: 6.00 Aov Mn Grad: 3.00 MYAH Cont.VTI: 2.96 LVOT LVOT Pk Jarrod: 0.74 LVOT Mn Jarrod: 0.42 LVOT VTI: 0.16 LVOT Pk Grad: 2.00 LVOT Mn Grad: 1.00 LVOT Diam: 2.40 LVOT Area: 4.52 Diastolic Function MV Pk E: 0.44 MV Pk A: 0.83 E/A: 0.50 E'Medial: 5.11 E/E' Med: 8.60 E' Laterial: 5.55 E/E' Lat: 7.90 Right Ventricle TAPSE (mm): 24.00 TVS' Jarrod: 11.00 Tricuspid Valve TR Pk Jarrod: 1.95 TR Pk Grad: 15.00 RA Press: 3.00 RVSP: 18.00 Great Vessels Aorta Ao Root-2D: 3.40 2.0-3.7 cm Ao Asc: 3.40 2.1-3.4 cm Pulmonary Valve PV Pk Jarrod: 1.46 Peak PV Grad: 9.00 Updated in Other Vendor System with Status of Final Mark Degroot MD electronically signed on 11/26/2022 9:18:24 AM with status of Final
== END ==
LOC: HO.CARD 12:49
PROVIDERS: Visit Provider Internal Medicine
DX: I25.10 Atherosclerotic heart disease of native coronary artery without angina pectoris (principal)
CPT/HCPCS: 93306

== ENCOUNTER → 2022-11-24 12:52 | Outpatient (BNV) | payer MEDICARE, OTHER, SELFPAY | PROVIDERS: Visit Provider Internal Medicine | DX: I25.10 Atherosclerotic heart disease of native coronary artery without angina pectoris (principal) | CPT/HCPCS: 93306 ==

== ENCOUNTER 2022-12-14 08:23 | Outpatient (AMB) | payer MEDICARE, OTHER, SELFPAY ==
[2022-12-14 08:41] VITALS: BP 134/84; PULSE 65; BMI 32.3
--- NOTE | 2022-12-14 08:41 | MHC.OFFVIS ---
Intake Vital Signs 12/14/22 08:41 Height 5 ft 11 in Weight 231 lb 7.766 oz BMI 32.3 BP 134/84 Blood Pressure Location Lt brachial Position Sitting Pulse 65 Intake Visit Reasons: follow up after testing Intake Note: follow up [employer] [facility] Required: No Accompanied by: Self / Same As Patient Allergies amoxicillin [Amoxicillin] Allergy (Mild, Verified 12/14/22 08:43) RASH Penicillins Allergy (Mild, Verified 12/14/22 08:43) HIVES Medication List - Last Reconciled 12/14/22 by Mark Degroot MD aspirin (Adult Low Dose Aspirin) 81 mg PO DAILY 90 days ibuprofen 600 mg PO Q8H PRN multivitamin 1 tab PO DAILY omeprazole 20 mg PO DAILY@0630 simvastatin 80 mg PO BEDTIME HPI HPI Comments History of Present Illness Details Alexei returns for follow-up. Recently seen in consultation regarding question of coronary disease. Brother had a fatal myocardial infarction/cardiac arrest and hence patient want to get checked out. Patient himself does not have any clear cardiac symptoms. He does not have any known coronary disease. History of smoking in the past. Blood pressures have been up and down but not any medications. On statins for dyslipidemia. He has had some random chest pains but nothing clearly exertion. Since last seen, he has underwent coronary CTA. [facility] Medical History (Updated 11/07/22 @ 00:00 by Derick Olivo) Atherosclerotic cardiovascular disease Sepsis Chest pain Rash and nonspecific skin eruption High cholesterol GERD (gastroesophageal reflux disease) Family History Maternal Grandmother Diabetes Brother Heart attack Heart problem Father No problems noted. Mother No problems noted. Social History Household Members: Spouse Housing: House Do you presently have visiting nurse or other home services: No Alcohol intake: current Alcohol intake frequency: a few times a month Patient Tobacco Use Status: Former Tobacco user Quit Date: 30+ years Substance Use Type: Marijuana service: No Current occupational status: employed Review of Systems Const Denies weakness ENT Denies dizziness Card Denies chest pain, Denies chest pain with activity, Denies syncope, Denies rapid heart rate, Denies pedal edema, Denies edema, Denies leg edema, Denies lightheadedness, Denies palpitations, Denies dyspnea, Denies dyspnea on exertion and Denies orthopnea Resp Denies cough, Denies dyspnea and Denies dyspnea on exertion GI Denies hematochezia and Denies change in stool character Musc Denies abnormal gait, Denies muscle cramps, Denies muscle weakness, Denies numbness, Denies radiating pain into limb and Denies tingling Neuro Denies abnormal gait, Denies dizziness, Denies syncope, Denies numbness, Denies tingling and Denies weakness Endo Denies palpitations Physical Exam Vital Signs: Last Vital Signs Pulse 65 12/14/22 08:41 BP 134/84 12/14/22 08:41 BMI result Body Mass Index 32.3 Const General: comfortable and no acute distress Orientation/consciousness: patient oriented x3 HEENT Other: Unremarkable Head: Yes normal to inspection Neck Neck: Yes normal visual inspection Chest Chest palpation & inspection: normal inspection of the chest Resp Auscultation: clear to auscultation bilaterally Cardio Palpation: normal PMI Heart sounds: S1 normal heart sound present, S2 normal heart sound present, no gallops, no murmurs and no rubs GI Palpation (GI): Soft to palpation Back/Spine/Pelvis Other: unremarkable Skin General skin exam: no rashes or lesions noted Neuro General: patient oriented x3 Extrem General: Yes normal to inspection Psych Mental Status: mental status grossly normal Assessment & Plan Assessment & Plan (1) Atherosclerotic cardiovascular disease: Code(s): I25.10 - Atherosclerotic heart disease of [place] coronary artery without angina pectoris Plan Baseline EKG shows sinus rhythm and nonspecific ST-T changes. In the stress test, he was able to exercise only for 4 minutes on the Presley protocol. Had occasional PVCs. No angina. Coronary CTA reviewed. Calcified and noncalcified plaque causing moderate stenosis at approximately 50% long distal LAD. Left main had less than 25% stenosis. FFR findings are not significant. Discussed results. Overall, primary risk factor modification. Needs to lose weight. With regard to blood pressure, it has been up and down. Today, it seems okay. Advised him to start monitoring home blood pressures and if it is consistently on the higher side will need medications. Probably start with a calcium channel vy. Otherwise, lipids are okay. He states he has been on simvastatin 80 mg for a long time with no issues and hence no changes made. Total time spent including review of data, counseling, documentation, coordination of care-32 minutes. Coding Level of Care Code Est Pt Level 4 (47504) Diagnoses Atherosclerotic cardiovascular disease I25.10
== END 2022-12-14 09:03 | disposition home or self-care (01) ==
PROVIDERS: PCP Internal Medicine; Referring Provider Internal Medicine; Visit Provider Internal Medicine
DX: I25.10 Atherosclerotic heart disease of native coronary artery without angina pectoris (principal)
CPT/HCPCS: 99214

== ENCOUNTER → 2022-12-14 08:23 | Outpatient (BNVA) | payer MEDICARE, OTHER, SELFPAY | PROVIDERS: PCP Internal Medicine; Referring Provider Internal Medicine; Visit Provider Internal Medicine | DX: I25.10 Atherosclerotic heart disease of native coronary artery without angina pectoris (principal) | CPT/HCPCS: 99212 ==

== ENCOUNTER → 2023-03-31 10:01 | Outpatient (BNVA) | payer MEDICARE, OTHER, SELFPAY | PROVIDERS: PCP Internal Medicine; Visit Provider Internal Medicine ==

== ENCOUNTER 2023-04-26 12:06 | Outpatient (AMB) | payer MEDICARE, OTHER, SELFPAY ==
[2023-04-26 12:33] VITALS: BP 136/70; PULSE 72; BMI 32.3
--- NOTE | 2023-04-26 12:33 | A.OFFVIS_ITS ---
Intake Vital Signs 04/26/23 12:33 Height 5 ft 11 in Weight 231 lb 7.766 oz BMI 32.3 BP 136/70 Blood Pressure Location Lt brachial Position Sitting Pulse 72 Intake Visit Reasons: 3-4 month follow up Intake Note: 3 month follow up [employer] Required: No Accompanied by: Self / Same As Patient Allergies amoxicillin [Amoxicillin] Allergy (Mild, Verified 04/26/23 12:35) RASH Penicillins Allergy (Mild, Verified 04/26/23 12:35) HIVES Medication List - Last Reconciled 04/26/23 by Mark Degroot MD amlodipine 5 mg PO DAILY 90 days aspirin (Adult Low Dose Aspirin) 81 mg PO DAILY 90 days multivitamin 1 tab PO DAILY omeprazole 20 mg PO DAILY@0630 simvastatin 80 mg PO BEDTIME HPI HPI Comments History of Present Illness Details Alexei returns for follow-up regarding coronary artery disease. Brother had a fatal myocardial infarction/cardiac arrest and hence patient underwent workup. He is undergone coronary CTA. Overall, he states he feels fine. No specific cardiac complaints at this time. He has been checking his home blood pressures and noticing that they are on the higher side, in the 140s, 150s and 160s too. Hence concerned. [facility] Medical History (Updated 11/07/22 @ 00:00 by Derick Olivo) Atherosclerotic cardiovascular disease Sepsis Chest pain Rash and nonspecific skin eruption High cholesterol GERD (gastroesophageal reflux disease) Family History Maternal Grandmother Diabetes Brother Heart attack Heart problem Father No problems noted. Mother No problems noted. Social History Household Members: Spouse Housing: House Do you presently have visiting nurse or other home services: No Alcohol intake: current Alcohol intake frequency: a few times a month Patient Tobacco Use Status: Former Tobacco user Quit Date: 30+ years Substance Use Type: Marijuana service: No Current occupational status: employed Review of Systems Const Denies weakness ENT Denies dizziness Card Denies chest pain, Denies chest pain with activity, Denies syncope, Denies rapid heart rate, Denies pedal edema, Denies edema, Denies leg edema, Denies lightheadedness, Denies palpitations, Denies dyspnea, Denies dyspnea on exertion and Denies orthopnea Resp Denies cough, Denies dyspnea and Denies dyspnea on exertion GI Denies hematochezia and Denies change in stool character Musc Denies abnormal gait, Denies muscle cramps, Denies muscle weakness, Denies numbness, Denies radiating pain into limb and Denies tingling Neuro Denies abnormal gait, Denies dizziness, Denies syncope, Denies numbness, Denies tingling and Denies weakness Endo Denies palpitations Physical Exam Vital Signs: Last Vital Signs Pulse 72 04/26/23 12:33 BP 136/70 04/26/23 12:33 BMI result Body Mass Index 32.3 Const General: comfortable and no acute distress Orientation/consciousness: patient oriented x3 HEENT Other: Unremarkable Head: Yes normal to inspection Neck Neck: Yes normal visual inspection Chest Chest palpation & inspection: normal inspection of the chest Resp Auscultation: clear to auscultation bilaterally Cardio Palpation: normal PMI Heart sounds: S1 normal heart sound present, S2 normal heart sound present, no gallops, no murmurs and no rubs GI Palpation (GI): Soft to palpation Back/Spine/Pelvis Other: unremarkable Skin General skin exam: no rashes or lesions noted Neuro General: patient oriented x3 Extrem General: Yes normal to inspection Psych Mental Status: mental status grossly normal Assessment & Plan Assessment & Plan (1) Atherosclerotic cardiovascular disease: Code(s): I25.10 - Atherosclerotic heart disease of [place] coronary artery without angina pectoris Plan Baseline EKG shows sinus rhythm and nonspecific ST-T changes. In the stress test, he was able to exercise only for 4 minutes on the Presley protocol. Had occasional PVCs. No angina. Coronary CTA reviewed. Calcified and noncalcified plaque causing moderate stenosis at approximately 50% a long distal LAD. Left main had less than 25% stenosis. FFR findings are not significant. Echocardiogram with low normal LVEF at 55%. Otherwise unremarkable. Overall, he has got stable coronary artery disease. Recommend mainly risk factor modification. He is concerned about his weight and hence we will refer him to bariatrics for further evaluation. With regard to blood pressure, home diary reviewed and seems to be showing a lot of high readings but today seems okay. We will increase amlodipine 10 mg daily. With regard to statins, he is on simvastatin 80 mg daily and he has taken this for a long time. There is an interaction between amlodipine and simvastatin and hence will change his simvastatin to atorvastatin. Patient agrees. Appropriate scripts sent. Follow-up in 6 months. In the interim, he will call us with blood pressure readings. Total time spent including review of data, counseling, documentation, coordination of care-32 minutes. Orders: Referrals Bariatric Surgery Referral E66.01 - Morbid (severe) obesity due to excess calories Medications: New amlodipine 10 mg PO DAILY 90 tabs 3RF atorvastatin (Lipitor) 40 mg PO QPM 90 tabs 3RF Discontinued amlodipine Discontinued Reason: Doctor's Order 5 mg PO DAILY 90 days 90 tabs 1RF Coding Level of Care Code Est Pt Level 4 (48654) Diagnoses Atherosclerotic cardiovascular disease I25.10
== END 2023-04-26 12:54 | disposition home or self-care (01) ==
PROVIDERS: PCP Internal Medicine; Visit Provider Internal Medicine
DX: I25.10 Atherosclerotic heart disease of native coronary artery without angina pectoris (principal)
CPT/HCPCS: 99214

== ENCOUNTER → 2023-04-26 12:06 | Outpatient (BNVA) | payer MEDICARE, OTHER, SELFPAY | PROVIDERS: PCP Internal Medicine; Visit Provider Internal Medicine | DX: I25.10 Atherosclerotic heart disease of native coronary artery without angina pectoris (principal) | CPT/HCPCS: 99212 ==

== ENCOUNTER 2023-05-13 09:10 | Outpatient (REF) | payer MEDICARE, OTHER, SELFPAY ==
[2023-05-13 09:46] LABS: Estimated Average Glucose 108 mg/dL; Hemoglobin A1c % 5.4 % (<6.0)
[2023-05-13 10:09] LABS: Alanine Aminotransferase 39 U/L (0-40); Alkaline Phosphatase 69 U/L (39-117); Anion Gap 12 (12-20); Aspartate Amino Transferase 28 U/L (5-37); Bilirubin Total 0.8 mg/dL (0.0-1.0); Blood Urea Nitrogen 13 mg/dL (9-16); Calcium 9.6 mg/dL (8.4-10.2); Carbon Dioxide 25 mmol/L (22-29); Chloride 107 mmol/L (96-108); Estimated Glomerular Filt Rate > 60; Glucose Random 111 mg/dL (60-115); Potassium 3.8 mmol/L (3.3-5.1); Sodium 140 mmol/L (135-145)
== END 2023-05-13 09:11 | disposition home or self-care (01) ==
LOC: HO.LAB 09:10
PROVIDERS: PCP Internal Medicine; Visit Provider Internal Medicine
DX: I25.10 Atherosclerotic heart disease of native coronary artery without angina pectoris (principal); I10 Essential (primary) hypertension; R73.03 Prediabetes; R79.89 Other specified abnormal findings of blood chemistry
CPT/HCPCS: 36415; 80053; 83036

== ENCOUNTER 2023-06-14 10:53 | Day surgery (SDC) | payer MEDICARE, OTHER, SELFPAY ==
[2023-06-14 11:05] VITALS: BMI 32.5
[2023-06-14 11:29] VITALS: BMI 32.8
[2023-06-14] MEDS: Lactated Ringers 1,000 ML 80 ML IVCONT (11:34)
--- NOTE | 2023-06-14 11:38 | HO.ANESPROP2 ---
HPI - Anesthesia Eval Consult details Narrative: for colon PMFSH Active Problems Active Problems: All Active Problems (Updated 11/07/22 @ 00:00 by Background Daemon) Family history of myocardial infarction (Acute) Pneumonia (Acute) High cholesterol (Acute) GERD (gastroesophageal reflux disease) (Acute) Atherosclerotic cardiovascular disease (Acute) Past Medical History Medical History Atherosclerotic cardiovascular disease Sepsis Chest pain Rash and nonspecific skin eruption High cholesterol GERD (gastroesophageal reflux disease) Family History Family History Maternal Grandmother Diabetes Brother Heart attack Heart problem Father No problems noted. Mother No problems noted. Family history of problems with anesthesia: No Surgical History Surgical History Hx of cholecystectomy Hx of colonoscopy History of Problems with Anesthesia: No Social History Social History Household Members: Spouse Housing: House Do you presently have visiting nurse or other home services: No Alcohol intake: current Alcohol intake frequency: a few times a month Patient Tobacco Use Status: Former Tobacco user Quit Date: 30+ years Substance Use Type: Marijuana Substance Use Frequency: Daily Are you DNR?: No Advance Directives: No Advance Directives Information Provided: Yes Nutrition Risks: No Nutritional Risk service: No Current occupational status: employed Meds Allergies Allergy/AdvReac Type Severity Reaction Status Date / Time amoxicillin [Amoxicillin] Allergy Mild RASH Verified 06/14/23 11:09 Penicillins Allergy Mild HIVES Verified 06/14/23 11:09 Active Medications: Current Medications Lactated Ringer's (Lr) 1,000 mls @ 80 mls/hr IVCONT .[id number] SUGAR Last Admin: 06/14/23 11:34 Dose: 80 mls/hr Sodium Biphosphate/Sodium Phosphate (Sodium Phosphate,Hendry-Dibasic 133 Ml Enema) 133 ml AR ONCE PRN PRN Reason: Poor Colonoscopy Prep Results Home Medications Medication Instructions Recorded Confirmed Last Taken Type omeprazole 20 mg capsule,delayed 20 mg PO DAILY@0630 04/17/21 06/14/23 Unknown History release multivitamin 1 tab PO DAILY 09/01/22 06/14/23 Unknown History Exam Height,Weight and Vital Signs: Height 5 ft 11 in Weight 106.594 kg Airway Mallampati Class: III TM Dist: >3cm Neck ROM: Limited Heart: rrr Lungs: cta Assessment and Plan Assessment Anesthesia Assessment: Anesthesia Plan Discussed, Smoking Cess. Discussed (dale smoker ) and Chart Reviewed Final Anesthetic Review Family History of Problems with Anesthesia: No History of Problems with Anesthesia: No NPO: Yes ASA Class: III Final Preanesthetic Review: No Changes in Pt Med Stat, Meds/Allgs Chart Reviewed, Consent Obtained/Reviewed and Anes Risks/Benef Reviewed Patient Risk: Intermediate Procedure Risk: Low Anesthetic Plan Anesthetic Plan: MAC: Disposition: Standard PACU
[2023-06-14 11:40] VITALS: BP 146/85; PULSE 71; RESP 18; TEMP 36.6; O2SAT 96
[2023-06-14 13:05] VITALS: BP 105/61; PULSE 72; RESP 16; TEMP 36.1; O2SAT 96
--- NOTE | 2023-06-14 13:09 | PM.OP ---
Brief Operative Note Date of Service: 06/14/23 Pre-op diagnosis: Screening Post-op diagnosis: other (Diverticulosis) Procedure: Colonoscopy to the cecum and TI Surgeon: Pramod Earl MD Anesthesia: MAC Was an Veterans Adviser used for this Procedure?: No Estimated blood loss (mL): 0 Pathology: none sent Condition: stable Disposition: PACU
--- NOTE | 2023-06-14 14:19 | OP_ITS ---
DATE OF SERVICE: 06/14/2023 SURGEON: Pramod Earl MD INDICATIONS: The patient presents for evaluation of colorectal cancer screening. Full consent obtained from him for this, including risks of bleeding and perforation. PREOPERATIVE DIAGNOSIS: Colorectal cancer screening. POSTOPERATIVE DIAGNOSIS: PROCEDURE PERFORMED: Colonoscopy to cecum and terminal ileum. ESTIMATED BLOOD LOSS: COMPLICATIONS: ANESTHESIA: Medication used; monitored anesthesia care. ASSISTANTS: SPECIMENS: POSTOPERATIVE DIAGNOSES: Colorectal cancer screening, diverticulosis, and internal hemorrhoids. DESCRIPTION OF PROCEDURE: The patient was placed in the left lateral decubitus position. The digital rectal exam revealed no abnormalities. The Olympus video-pediatric colonoscope was entered into the rectum and advanced easily to the cecum. Once in the cecum, I did identify normal-appearing cecal pouch with appendiceal orifice and a normal-appearing ileocecal valve. The terminal ileum was cannulated and appeared normal. The scope was withdrawn back in the colon. The entire cecum and ileocecal valve appeared normal. The scope was slowly withdrawn assessing all mucosal surfaces carefully. Preparation was excellent. I did not visualize any sign of polyps, colitis, nor angiodysplasia. There was a mild amount of sigmoid diverticulosis. In the rectum, the scope was retroflexed visualizing internal hemorrhoids, but no other pathology. The rectal mucosa appeared normal. The scope was straightened and withdrawn from the patient. He tolerated the procedure well and was returned to the recovery area in stable condition. IMPRESSION: 1. Diverticulosis. 2. Internal hemorrhoids. PLAN: Given the negative exam, I would recommend a followup coloscopy in 10 years for screening. He will otherwise see me on a p.r.n. basis. He was advised to continue his omeprazole for his history of reflux and esophagitis. MD JASVIR Cuellar/ANURAG / [id number]
== END 2023-06-14 14:05 | disposition home or self-care (01) ==
PROVIDERS: PCP Internal Medicine; Visit Provider Internal Medicine
PROC: 0DJD8ZZ Inspection of Lower Intestinal Tract, Via Natural or Artificial Opening Endoscopic (ICD-10-PCS; CPT 45378; principal; 2023-06-14 13:20)
DX: Z12.11 Encounter for screening for malignant neoplasm of colon (principal); I10 Essential (primary) hypertension; E78.5 Hyperlipidemia, unspecified; K76.0 Fatty (change of) liver, not elsewhere classified; Z79.02 Long term (current) use of antithrombotics/antiplatelets; K57.30 Diverticulosis of large intestine without perforation or abscess without bleeding; K64.8 Other hemorrhoids
CPT/HCPCS: G0121; J2704

== ENCOUNTER 2023-10-26 12:10 | Outpatient (AMB) | payer MEDICARE, OTHER, SELFPAY ==
[2023-10-26 12:30] VITALS: BP 120/72; PULSE 74; BMI 32.3
--- NOTE | 2023-10-26 12:30 | MHC.OFFVIS ---
Vital Signs 10/26/23 12:30 Height 5 ft 11 in Weight 231 lb 7.766 oz BMI 32.3 BP 120/72 Blood Pressure Location Lt brachial Position Sitting Pulse 74 Pulse Source Monitor Intake Visit Reasons: 6 mth f/up Allergies amoxicillin [Amoxicillin] Allergy (Mild, Verified 06/14/23 11:09) RASH Penicillins Allergy (Mild, Verified 06/14/23 11:09) HIVES Medication List - Last Reconciled 10/26/23 by Mark Degroot MD amlodipine 10 mg PO DAILY aspirin 81 mg PO DAILY atorvastatin (Lipitor) 40 mg PO QPM doxazosin 2 mg PO DAILY multivitamin 1 tab PO DAILY omeprazole 20 mg PO DAILY@0630 HPI Comments Details: Alexei returns for follow-up regarding coronary artery disease. Brother had a fatal myocardial infarction/cardiac arrest and hence patient underwent workup. He has undergone coronary CTA. Overall, no specific complaints like angina. He has seems to be getting along fine. Because of blood pressure, we did increase the amlodipine dose. He developed some leg swelling but after time, it seems to have resolved. Currently, no swelling. Otherwise no new issues. [facility] Medical History (Updated 10/26/23 @ 12:54 by aMrk Degroot MD) Essential hypertension Atherosclerotic cardiovascular disease Sepsis Chest pain Rash and nonspecific skin eruption High cholesterol GERD (gastroesophageal reflux disease) Surgical History Hx of cholecystectomy Hx of colonoscopy Family History Maternal Grandmother Diabetes Brother Heart attack Heart problem Father No problems noted. Mother No problems noted. Social History Household Members: Spouse Housing: House Do you presently have visiting nurse or other home services: No Alcohol intake: current Alcohol intake frequency: a few times a month Patient Tobacco Use Status: Former Tobacco user Substance Use Type: Marijuana service: No Current occupational status: employed Review of Systems Const Denies weakness ENT Denies dizziness Card Denies chest pain, Denies chest pain with activity, Denies syncope, Denies rapid heart rate, Denies pedal edema, Denies edema, Denies leg edema, Denies lightheadedness, Denies palpitations, Denies dyspnea, Denies dyspnea on exertion and Denies orthopnea Resp Denies cough, Denies dyspnea and Denies dyspnea on exertion GI Denies hematochezia and Denies change in stool character Musc Denies abnormal gait, Denies muscle cramps, Denies muscle weakness, Denies numbness, Denies radiating pain into limb and Denies tingling Neuro Denies abnormal gait, Denies dizziness, Denies syncope, Denies numbness, Denies tingling and Denies weakness Endo Denies palpitations Physical Exam Vital Signs: Last Vital Signs Pulse 74 10/26/23 12:30 BP 120/72 10/26/23 12:30 BMI result Body Mass Index 32.3 Const General: comfortable and no acute distress Orientation/consciousness: patient oriented x3 HEENT Other: Unremarkable Head: Yes normal to inspection Neck Neck: Yes normal visual inspection Chest Chest palpation & inspection: normal inspection of the chest Resp Auscultation: clear to auscultation bilaterally Cardio Palpation: normal PMI Heart sounds: S1 normal heart sound present, S2 normal heart sound present, no gallops, no murmurs and no rubs GI Palpation (GI): Soft to palpation Back/Spine/Pelvis Other: unremarkable Skin General skin exam: no rashes or lesions noted Neuro General: patient oriented x3 Extrem General: Yes normal to inspection Psych Mental Status: mental status grossly normal Office Procedures EKG Details: EKG with normal sinus rhythm at 74/Min; nonspecific ST-T changes; [place]. [id number], Complete Assessment & Plan Assessment & Plan (1) Atherosclerotic cardiovascular disease: Code(s): I25.10 - Atherosclerotic heart disease of [place] coronary artery without angina pectoris Category: Medical (2) Essential hypertension: Code(s): I10 - Essential (primary) hypertension Category: Medical (3) High cholesterol: Code(s): E78.00 - Pure hypercholesterolemia, unspecified Category: Medical Plan Baseline EKG shows sinus rhythm and nonspecific ST-T changes. In the stress test, he was able to exercise only for 4 minutes on the Presley protocol. Had occasional PVCs. No angina. Coronary CTA reviewed. Calcified and noncalcified plaque causing moderate stenosis at approximately 50% along distal LAD. Left main had less than 25% stenosis. FFR findings are not significant. Echocardiogram with low normal LVEF at 55%. Otherwise unremarkable. Overall, treat for stable coronary disease. He is clearly overweight and we have discussed weight loss numerous times including today. He will focus on that. With regard to blood pressure, he stable on amlodipine. Leg swelling issues seem to have resolved. If he develops again, consider a different agent like MALORIE inhibitors or ARB. Continue statins. He was on simvastatin 80 mg daily but was switched to atorvastatin because of interaction between amlodipine/simvastatin. Coding Level of Care Code Est Pt Level 4 (64201) Diagnoses Atherosclerotic cardiovascular disease I25.10 Essential hypertension I10 High cholesterol E78.00 CPT Codes EKG - CPT: 64295-[id number], Complete ([id number])
== END 2023-10-26 12:52 | disposition home or self-care (01) ==
PROVIDERS: PCP Internal Medicine; Visit Provider Internal Medicine
DX: I25.10 Atherosclerotic heart disease of native coronary artery without angina pectoris (principal); I10 Essential (primary) hypertension; E78.00 Pure hypercholesterolemia, unspecified
CPT/HCPCS: 93010; 99214

== ENCOUNTER → 2023-10-26 12:10 | Outpatient (BNVA) | payer MEDICARE, OTHER, SELFPAY | PROVIDERS: PCP Internal Medicine; Visit Provider Internal Medicine | DX: I25.10 Atherosclerotic heart disease of native coronary artery without angina pectoris (principal); I10 Essential (primary) hypertension; E78.00 Pure hypercholesterolemia, unspecified | CPT/HCPCS: 93005; 99212 ==

== ENCOUNTER 2024-03-16 09:11 | Outpatient (REF) | payer MEDICARE, OTHER, SELFPAY ==
[2024-03-16 09:33] LABS: MANUAL DIFF FLAG NO
[2024-03-16 09:52] LABS: Basophils Absolute Auto 0.1 X10*3/uL (0.0-0.2); Basophils Percent Auto 0.9 % (0-2); Eosinophils Absolute Auto 0.2 X10*3/uL (0.0-0.4); Eosinophils Percent Auto 3.2 % (0-4); Hematocrit 44.5 % (42.0-52.0); Hemoglobin 15.1 g/dl (14.0-18.0); Imm Gran Abs Auto 0.07 X10*3/uL (0.00-0.03); Imm Gran Pct Auto 0.9 % (0.0-0.4); Lymphocytes Absolute Auto 2.9 X10*3/uL (1.2-4.9); Lymphocytes Percent Auto 38.2 % (20-40); Mean Corpuscular HGB Conc 33.9 g/dl (31.0-36.0); Mean Corpuscular Hemoglobin 29.5 pg (27.0-33.0); Mean Corpuscular Volume 87.1 fL (80.0-98.0); Mean Platelet Volume 10.9 fL (9.4-12.4); Monocytes Absolute Auto 0.8 X10*3/uL (0.1-1.2); Monocytes Percent Auto 10.4 % (2-11); Neutrophils Absolute Auto 3.5 x10*3/uL (2.0-8.3); Neutrophils Percent Auto 46.4 % (45-73); Platelet Count 179 X10*3/uL (160-400); Red Blood Count 5.11 X10*6/uL (4.60-5.80); Red Cell Distribution Width 12.3 % (11.0-16.0); White Blood Count 7.6 X10*3/uL (4.8-10.8)
[2024-03-16 10:12] LABS: Appearance Urine Cloudy; Color Urine Yellow; Glucose Urine UA Negative (Negative); Leukocyte Esterase Urine Negative (Negative); Nitrite Urine Negative (Negative); Specific Gravity - Urine 1.015 (1.005-1.025); Urine Blood Negative (Negative); Urine Ketones Negative (Negative); Urine Protein Negative (Neg-Trace)
[2024-03-16 10:43] LABS: Alanine Aminotransferase 41 U/L (0-40); Albumin Level 3.9 g/dL (3.5-5.0); Alkaline Phosphatase 66 U/L (39-117); Anion Gap 10 (12-20); Aspartate Amino Transferase 30 U/L (5-37); Bilirubin Total 0.9 mg/dL (0.0-1.0); Blood Urea Nitrogen 13 mg/dL (9-16); Calcium 8.8 mg/dL (8.4-10.2); Carbon Dioxide 26 mmol/L (22-29); Chloride 109 mmol/L (96-108); Cholesterol 128 mg/dL (<200); Estimated Glomerular Filt Rate > 60; Glucose Fasting 109 mg/dL (60-99); HDL Cholesterol 34 mg/dL (>40); LDL Cholesterol Calculated 47 mg/dL (<100); Potassium 3.7 mmol/L (3.3-5.1); Sodium 141 mmol/L (135-145); Total Protein 6.9 g/dL (6.5-8.0); Triglycerides 237 mg/dL (<150)
[2024-03-16 10:56] LABS: Prostate Specific Antigen 3.02 ng/mL (<0.05-4.0)
== END 2024-03-16 09:12 | disposition home or self-care (01) ==
LOC: HO.LAB 09:11
PROVIDERS: PCP Internal Medicine; Visit Provider Internal Medicine
DX: I10 Essential (primary) hypertension (principal); Z12.5 Encounter for screening for malignant neoplasm of prostate; E78.00 Pure hypercholesterolemia, unspecified; N40.0 Benign prostatic hyperplasia without lower urinary tract symptoms; N18.9 Chronic kidney disease, unspecified
CPT/HCPCS: 36415; 80053; 80061; 81003; 84153; 85025

== ENCOUNTER 2024-07-19 13:09 | Outpatient (AMB) | payer MEDICARE, OTHER, SELFPAY ==
[2024-07-19 13:16] VITALS: BP 120/80; PULSE 72; TEMP 36.5; O2SAT 98; BMI 32.8
--- NOTE | 2024-07-19 13:16 | A.OFFPC_ITS ---
Vital Signs 07/19/24 13:16 Height 5 ft 11 in Weight 235 lb BMI 32.8 BP 120/80 Blood Pressure Location Lt brachial Position Sitting Pulse 72 Pulse Source Pulse Oximeter Temp 97.7 F Temp Source Axillary Pulse Oximetry (%) 98 Oxygen Delivery Method Room Air Intake Visit Reasons: Routine [employer]oles[employer]ker Required: No Accompanied by: Self / Same As Patient Allergies amoxicillin [Amoxicillin] Allergy (Mild, Verified 07/19/24 13:17) RASH Penicillins Allergy (Mild, Verified 07/19/24 13:17) HIVES Tobacco use date assessed: 07/19/24 Fall risk assessment: No Falls in past year Last assessed Fall Risk: 07/19/24 Dental Screening Dental Screen Date: 07/19/24 Did you have a dental visit in the last 12 months?: Yes Did you have a dental problem in the last 6 months where you did not have access to dental care?: No [facility] Medical History (Updated 07/19/24 @ 13:46 by Silvano Ratliff MD) Obesity (BMI 30-39.9) Hyperlipidemia Essential hypertension Atherosclerotic cardiovascular disease Sepsis Chest pain Rash and nonspecific skin eruption High cholesterol GERD (gastroesophageal reflux disease) Surgical History Hx of cholecystectomy Hx of colonoscopy (~06/14/23) Family History Maternal Grandmother Diabetes Brother Heart attack Heart problem Father No problems noted. Mother No problems noted. Social History Household Members: Spouse Housing: House Do you presently have visiting nurse or other home services: No Alcohol intake: current Alcohol intake frequency: a few times a month Patient Tobacco Use Status: Former Tobacco user e-Cigarette/Vaping Use: Former Use Substance Use Type: Marijuana service: No Current occupational status: retired Cognitive needs: No Hearing needs: No Vision needs: Yes (rx glasses) Questionnaire PHQ-9 Over the last 2 weeks, how often have you been bothered by any of the following problems? 1. Little interest or pleasure in doing things: not at all 2. Feeling down, depressed, or hopeless: not at all 3. Trouble falling or staying asleep, or sleeping too much: not at all 4. Feeling tired or having little energy: not at all 5. Poor appetite or overeating: not at all 6. Feeling bad about yourself - or that you are a failure or have let yourself or your family down: not at all 7. Trouble concentrating on things, such as reading the newspaper or watching television: not at all 8. Moving or speaking so slowly that other people could have noticed. Or the opposite - being so fidgety or restless that you have been moving around a lot more than usual: not at all 9. Thoughts that you would be better off or of hurting yourself in some way: not at all Total score: 0 Depression Screening Interpretation: Negative Depression Screening Done: Yes Source: Developed by Drs. Pramod Ayala, Sloane Angel, Mark Felix and colleagues, with an educational cam from [employer]. Thrive Questionnaire Date Thrive assessed: 07/19/24 I am a: Patient Within the past 12 months, did the food you bought not last and you didn't have the money to get more?: Never true Within the past 12 months, did you worry whether your food would run out before you got money to buy more?: Never true Do you have trouble paying for medicines?: No Do you have trouble getting transportation to medical appointments?: No Do you have trouble paying your heating and electricity bill?: No Do you have trouble taking care of your child, family member or friend?: No Do you have trouble with day-to-day activities such as bathing, preparing meals, shopping, managing finances, etc.?: No Are you currently unemployed and looking for a job?: No Are you interested in more education?: No Currently or been in a relationship where the following occur: No concerns reported THRIVE Score: 0 AUDIT C Alcohol Use Questionnaire (AUDIT-C) 1. How often do you have a drink containing alcohol?: Monthly or less 2. How many drinks containing alcohol do you have on a typical day when you are drinking?: 1 or 2 3. How often do you have six or more drinks on one occasion?: Less than monthly Total Score: 2 PIPER-7 AMB Questionnaire PIPER-7 Date PIPER - 7 assessed: 07/19/24 Feeling nervous, anxious, or on edge: 0 = Not at all Not being able to stop or control worryin = Not at all Worrying too much about different things: 0 = Not at all Trouble relaxin = Not at all Being so restless that it is hard to sit still: 0 = Not at all Becoming easily annoyed or irritable: 0 = Not at all Feeling afraid as if something awful might happen: 0 = Not at all Total PIPER-7 score (0-4 normal; 5-9 mild; 10-14 moderate; 15-21 severe): 0 Source: Developed by Drs. Pramod Ayala, Sloane Angel, Mark Felix and colleagues, with an educational cam from [employer]. Physical exam (Primary Care) Vital Signs: Last Vital Signs Temp 97.7 F 07/19/24 13:16 Pulse 72 07/19/24 13:16 BP 120/80 07/19/24 13:16 Pulse Ox 98 07/19/24 13:16 Oxygen Delivery Method Room Air 07/19/24 13:16 Care Plan Goal for BP management: BP in range BMI result Body Mass Index 32.8 BMI Assessment/Plan discussion: High (One pound per week weight loss suggested) BMI High, discussed plan: lifestyle, weight reduction and dietary Tobacco/Smoking Status: Tobacco use Status Tobacco use date assessed 07/19/24 07/19/24 13:20 Patient Tobacco Use Status Former Tobacco user 07/19/24 13:20 Tobacco use type 10/16/22 11:28 e-Cigarette/Vaping Use Former Use 07/19/24 13:33 PHQ-9: PHQ-9 Score PHQ-9: Total score 0 07/19/24 13:20 Depression Screening Interpretation: Negative Thrive Assessment: Date of Thrive Assessment Date Thrive assessed 07/19/24 07/19/24 13:20 Currently or been in a relationship where the following occur: No concerns reported Advance Care Planning discussion: Exists, not on file Date of discussion: 07/19/24 Who was present: Patient Forms completed: Health Care Proxy Actual minutes spent: 5 Coding Level of Care Code New Pt Level 4 (19323) Complex EM visit Add On G2211 Diagnoses Essential hypertension I10 GERD (gastroesophageal reflux disease) K21.9 Hyperlipidemia E78.5 Obesity (BMI 30-39.9) E66.9 Additional Codes Vital Signs *Quality* - Advance Care Planning discussion: Exists, not on file ([id number]) Assessment & Plan Assessment & Plan (1) Essential hypertension: Code(s): I10 - Essential (primary) hypertension Category: Medical Plan: Blood pressure is in range. Continue current meds (2) GERD (gastroesophageal reflux disease): Code(s): K21.9 - Gastro-esophageal reflux disease without esophagitis Category: Medical Plan: Condition is stable (3) Hyperlipidemia: Code(s): E78.5 - Hyperlipidemia, unspecified Category: Medical Plan: Continue statins on same dosage. (4) Obesity (BMI 30-39.9): Code(s): E66.9 - Obesity, unspecified Category: Medical Plan: Counselling on importance of diet and exercise done Plan History of Present Illness The patient is a 68-year-old male presenting with a wellness visit. His essential hypertension is under control at 120/80 mmHg with efforts focused on lifestyle changes and regular monitoring. Nighttime halos and sparkles are symptoms of his known cataracts, which are stable at present. A previous retinal tear was resolved with intervention last year. The patient reports nocturia, likely due to benign prostatic hyperplasia, as well as neuropathy that primarily affects the feet following years of a physically demanding occupation. His knee pain, consistent with potential osteoarthritis, is exacerbated by climatic variations. Recommendations for promoting mobility and reducing discomfort include regular walking and possibly swimming, as advised by healthcare providers. He actively manages his diet and weight, being cautious with sugar intake to maintain overall health. 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 - Drives regularly, including at night. - Engages in walking for exercise and is considering swimming. - Actively manages dietary intake with a focus on reducing sugar. Review of Systems - Eyes: Reports halos and sparkles at night. - Genitourinary: Reports nocturia. - Musculoskeletal: Reports knee pain and neuropathy. - Nervous System: Reports history of retinal tear repair. Physical Exam General: Cooperative and healthy appearing Nutritional Appearance: Well nourished Orientation/consciousness: Patient oriented x3 Limitations: No limitations Head: Normal to inspection General: Appearance normal, both eyes and all related structures Neck: Normal visual inspection Chest: Normal palpation of entire chest wall Respiratory: N ormal respiratory effort Neurology: Patient oriented x3, reports neuropathy in the feet and toes, knee pain possibly arthritic, exacerbated by moisture in the air. Results - Tests: History of retinal tear; recent colonoscopy reported as normal. Plan I discussed the patient's hypertension management, emphasizing lifestyle changes that have successfully controlled his blood pressure. Cataract symptoms were evaluated as stable, considering safety while driving. Nocturia is likely due to prostatic hyperplasia, and the patient's neuropathy shows improvement as he stays active. The osteoarthritis pain is addressed with exercise modifications like swimming to reduce joint stress. Continued monitoring and appropriate interventions will help manage his overall health effectively. Routine follow-up is planned to ensure comprehensive management and preventive care. Patient was informed and verbally consented to the use of an ambient scribe for clinic note documentation during this visit. Discussion Notes During our meeting, I reviewed the patient's management strategies for hypertension, including successful lifestyle changes. Cataracts remain stable, and driving safety was addressed. The implications of benign prostatic hyperplasia were discussed in the context of nocturia. I reviewed the improvement in neuropathy with active lifestyle choices and considered knee pain due to osteoarthritis, highlighting exercise adjustments for symptom management. We also discussed dietary adjustments, focusing on reducing sugar to support his health goal and weight management. We plan for follow-up to continue monitoring his health and preventive measures. Patient Instructions - Continue current lifestyle adjustments for blood pressure control. - Monitor for any changes in cataract symptoms, especially if impacting driving. - Maintain awareness of nocturia and manage fluid intake. - Incorporate swimming or uha-ddpoyp-oxozxtw exercises to alleviate knee pain. - Continue a sensible diet with focus on balanced nutrition. - Follow-up in six months for routine health monitoring.
--- OUTSIDE RECORDS SUMMARY | 2024-07-19 15:33 | XMS_ITS ---
Author Organization [facility] Address [address] [place] [id number] Care Team Providers Care Hand Icer Name Role Phone Laurent Collado MD Primary Care Provider Pramod Khoury [phone] REASON FOR VISIT colonoscopy Encounters Encounter Location Date Provider Diagnosis [facility] [address] [place] [phone] 03/31/2023 Pramod Earl Plan Of Treatment No Information Progress Notes * LÁZARO DUENAS RDOB:[birth year] (67 yo M)Acc No.[id number]:03/31/2023 Patient:?LÁZARO DUENAS :1955???Age:67 Y???Sex:Male Address: [place] [address] * true * Date:? Generated for Yun bianchi/George/eTransmitting on:?07/19/2024 03:32 PM EDT
--- OUTSIDE RECORDS SUMMARY | 2024-07-19 15:33 | XMS_ITS | Patient Health Record ---
Author Organization [facility] Address [address] [place] [phone] Care Team Providers Care Psych Specialist Name Role Phone Laurent Collado MD Primary Care Provider Pramod Khoury Unavailable [phone] Allergies Allergen (clinical drug ingredient) Drug/Non Drug Allergy documented on EMR Reaction Allergy Type Onset Date Status Penicillin hives Drug Allergy Active amoxicillin Amoxicillin hives Drug Allergy Act cecilia Reason For Referral No Information Medications Medication SIG (Take, Route, Frequency, Duration) Notes Start Date End Date Status Omeprazole 20 MG TAKE 1 CAPSULE EVERY MORNING Active Aspirin Low Dose 81 MG TAKE 1 TABLET BY MOUTH EVERY DAY Oral for 90 Active amLODIPine Besylate 5 MG 1 tablet Orally Once a day Active Simvastatin 80 MG 1 tablet Orally Once a day Active Problems Problem Type SNOMED Code ICD Code Onset Dates Problem Status W/U Status Risk Notes Problem 068380396 Colon cancer screening (Z12.11) Active confirmed Problem Diverticular disease of colon (480325071) Diverticulosis of large intestine without perforation or abscess without bleeding (K57.30) Active confirmed Problem 624646003 Fatty liver (K76.0) Active confirmed Problem 709895083 Gastroesophageal reflux disease with esophagitis without hemorrhage (K21.00) Active confirmed Plan Of Treatment Future Test Test Name Order Date UPPER GI ENDOSCOPY 07/05/2012 COLONOSCOPY 07/05/2012 COLONOSCOPY 01/19/2023 Insurance Providers Payer Name Payer Address Payer Phone Subscriber Number Group Number Insured Name Patient Relationship to Insured Coverage Start Date Coverage End Date MEDICARE OF [facility] [address] [place] [id number] KUN DUENAS Self - patient is the insured [facility] [address] [place] [address] [id number] KUN DUENAS Self - patient is the insured Medical (General) History Medical History History ICD Code Denies AK,DM,CVA,Lung disease,renal dise ase Hyperlipidemia GERD-EGD in 08/2012 with eros cecilia esophagitis and wllvc-ljycyysi-jqdmb hiatal hernia-Bx neg for Cobos's Screening colonoscopy in 08/2012 neg for polyps-fairly diffuse diverticulosis Pneumonia 10/2021 Hypertension Fatty liver on imaging with ultrasound and CT scan, negative hepatitis B and C studies; most recent liver profile in October of 2022 was normal except for an ALT of 43 Surgical History Surgery Date(Month/Year) Cholecystectomy
--- OUTSIDE RECORDS SUMMARY | 2024-07-19 15:33 | XMS_ITS ---
Author Organization [facility] Address [address] [place] [phone] Care Team Providers Care Roentgenologist Name Role Phone Laurent Collado MD Primary Care Provider Pramod Khoury [phone] REASON FOR VISIT screening Problems Problem Type SNOMED Code ICD Code Onset Dates Problem Status W/U Status Risk Notes Problem Diverticular disease of colon (289983936) Diverticulosis of large intestine without perforation or abscess without bleeding (K57.30) Active confirmed Encounters Encounter Location Date Provider Diagnosis [facility] [place] [address] [place] [id number] 06/14/2023 Pramod Earl Encounter for scre ening colonoscopy Z12.11 ; Diverticulosis of large intestine without perforation or abscess without bleeding K57.30 and Other hemorrhoids K64.8 Assessments Encounter Date Diagnosis (ICD Code) Assessment Notes Treatment Notes Treatment Clinical Notes Section Notes 06/14/2023 Encounter for screening colonoscopy (ICD-10 - Z12.11) 06/14/2023 Diverticulosis of large intestine without perforation or abscess without bleeding (ICD-10 - K57.30) 06/14/2023 Other hemorrhoids (ICD-10 - K64.8) Plan Of Treatment No Information Progress Notes * KUN DUENAS RDOB:1955 (68 yo M)Acc No.[id number]:06/14/2023 COLON WITH MAC Patient:?KUN DUENAS Provider:?Pramod Earl MD :1955???Age:67 Y???Sex:Male Kevon e:06/14/2023 Address[address] [id number] Pcp:Laurent Collado MD Subjective: * Chief Complaints: * ???1. Screening. * Medical History:? Objective: * Vitals:? Assessment: * Assessment: 1.?Encounter for screening c olonoscopy - Z12.11 (Primary)???2.?Diverticulosis of large intestine without perforation or abscess without bleeding - K57.30???3.?Other hemorrhoids - K64.8??? Plan: * Treatment: * Procedure Codes:?G0121 COLOR EC CNCR SCR;COLNSCPY NO HI RSK, 0529F INTRVL 3+YRS PTS CLNSCP DOCD, 0528F RCMND FLW-UP 10 YRS DOCD * * The named appointment provid er may or may not be the originator of this progress note, and it is not deemed complete until electronically signed by the appointment provider. Sign off status: Pending * Provider:?Pramod Earl MD Date:? 024 Generated for Yun bianchi/George/eTransmitting on:?07/19/2024 03:33 PM EDT
--- OUTSIDE RECORDS SUMMARY | 2024-07-19 15:34 | XMS_ITS ---
Author Organization [facility] Address [address] [place] [phone] Care Team Providers Care Gold Marker Name Role Phone Laurent Collado MD Primary Care Provider Pramod Khoury [phone] REASON FOR VISIT screening Encounters Encounter Location Date Provider Diagnosis [facility] [place] [facility] [address] [place], [place] [id number] 04/12/2023 Pramod Earl Plan Of Treatment No Information Progress Notes * KUN DUENAS RDOB:1955 (68 yo M)Acc No.[id number]:04/12/2023 COLON WITH MAC Patient:?KUN DUENAS Provider:?Pramod Earl MD :1955???Age:67 Y???Sex:Male Kevon e:04/12/2023 Address:[address] [place] [address] [address] [facility] Pcp:Laurent Collado MD Subjective: * Chief Complaints: * ???1. Screening. * Medical History:? Objective: * Vitals:? Assessment: Plan: * Treatment: * * The named appointment provid er may or may not be the originator of this progress note, and it is not deemed complete until electronically signed by the appointment provider. Sign off status: Pending * Provider:?Pramod Earl MD Date:? 024 Generated for Chrisi arias/Fajonesg/eTransmitting on:?07/19/2024 03:33 PM EDT
== END 2024-07-19 13:41 | disposition home or self-care (01) ==
LOC: HO.HMCHD 13:10
PROVIDERS: PCP Internal Medicine; Visit Provider Internal Medicine
DX: I10 Essential (primary) hypertension (principal); K21.9 Gastro-esophageal reflux disease without esophagitis; E78.5 Hyperlipidemia, unspecified; E66.9 Obesity, unspecified; Z00.00 Encounter for general adult medical examination without abnormal findings

== ENCOUNTER → 2024-07-19 13:09 | Outpatient (BNVA) | payer MEDICARE, OTHER, SELFPAY | PROVIDERS: PCP Internal Medicine; Visit Provider Internal Medicine | DX: I10 Essential (primary) hypertension (principal); K21.9 Gastro-esophageal reflux disease without esophagitis; E78.5 Hyperlipidemia, unspecified; E66.9 Obesity, unspecified | CPT/HCPCS: 99202 ==

== ENCOUNTER 2024-10-25 12:08 | Outpatient (AMB) | payer MEDICARE, OTHER, SELFPAY ==
--- NOTE | 2024-10-25 12:35 | A.OFFVIS_ITS ---
Vital Signs 10/25/24 12:36 Height 5 ft 11 in Weight 231 lb 7.766 oz BMI 32.3 BP 128/60 Blood Pressure Location Lt brachial Position Sitting Pulse 74 Pulse Source Monitor Intake Visit Reasons: 1 yr f/up Allergies amoxicillin (Amoxicillin) Allergy (Mild, Verified 07/19/24 13:17) RASH Penicillins Allergy (Mild, Verified 07/19/24 13:17) HIVES Medication List - Last Reconciled 10/25/24 by Mark Degroot MD amlodipine 10 mg PO DAILY aspirin 81 mg PO DAILY atorvastatin (Lipitor) 40 mg PO QPM doxazosin 2 mg PO DAILY doxycycline hyclate 100 mg PO BID multivitamin 1 tab PO DAILY omeprazole 20 mg PO DAILY@0630 HPI Comments Details: Alexei returns for follow-up regarding coronary artery disease. Brother had a fatal myocardial infarction/cardiac arrest and hence patient underwent workup. He has undergone coronary CTA. Overall, he feels quite good. Absolutely no cardiac symptoms. Has not been able to lose much weight. [facility] Medical History (Updated 07/19/24 @ 13:46 by Silvano Ratliff MD) Obesity (BMI 30-39.9) Hyperlipidemia Essential hypertension Atherosclerotic cardiovascular disease Sepsis Chest pain Rash and nonspecific skin eruption High cholesterol GERD (gastroesophageal reflux disease) Surgical History Hx of cholecystectomy Hx of colonoscopy (~06/14/23) Family History Maternal Grandmother Diabetes Brother Heart attack Heart problem Father No problems noted. Mother No problems noted. Social History Household Members: Spouse Housing: House Do you presently have visiting nurse or other home services: No Alcohol intake: current Alcohol intake frequency: a few times a month Patient Tobacco Use Status: Former Tobacco user e-Cigarette/Vaping Use: Former Use Substance Use Type: Marijuana service: No Current occupational status: retired Cognitive needs: No Hearing needs: No Vision needs: Yes (rx glasses) Review of Systems Const Denies weakness ENT Denies dizziness Card Denies chest pain, Denies chest pain with activity, Denies syncope, Denies rapid heart rate, Denies pedal edema, Denies edema, Denies leg edema, Denies lightheadedness, Denies palpitations, Denies dyspnea, Denies dyspnea on exertion and Denies orthopnea Resp Denies cough, Denies dyspnea and Denies dyspnea on exertion GI Denies hematochezia and Denies change in stool character Musc Denies abnormal gait, Denies muscle cramps, Denies muscle weakness, Denies numbness, Denies radiating pain into limb and Denies tingling Neuro Denies abnormal gait, Denies dizziness, Denies syncope, Denies numbness, Denies tingling and Denies weakness Endo Denies palpitations Physical Exam Vital Signs: Last Vital Signs Pulse 74 10/25/24 12:36 BP 128/60 10/25/24 12:36 BMI result Body Mass Index 32.3 Const General: comfortable and no acute distress Orientation/consciousness: patient oriented x3 HEENT Other: Unremarkable Head: Yes normal to inspection Neck Neck: Yes normal visual inspection Chest Chest palpation & inspection: normal inspection of the chest Resp Auscultation: clear to auscultation bilaterally Cardio Palpation: normal PMI Heart sounds: S1 normal heart sound present, S2 normal heart sound present, no gallops, no murmurs and no rubs GI Palpation (GI): Soft to palpation Back/Spine/Pelvis Other: unremarkable Skin General skin exam: no rashes or lesions noted Neuro General: patient oriented x3 Extrem General: Yes normal to inspection Psych Mental Status: mental status grossly normal Office Procedures EKG Details: EKG with underlying sinus rhythm at 74/Min; nonspecific ST-T changes; [place] [id number], Complete Assessment & Plan Assessment & Plan (1) Atherosclerotic cardiovascular disease: Code(s): I25.10 - Atherosclerotic heart disease of [place] coronary artery without angina pectoris Category: Medical (2) Essential hypertension: Code(s): I10 - Essential (primary) hypertension Category: Medical (3) High cholesterol: Code(s): E78.00 - Pure hypercholesterolemia, unspecified Category: Medical (4) Obesity (BMI 30-39.9): Code(s): E66.9 - Obesity, unspecified Category: Medical Plan Baseline EKG shows sinus rhythm and nonspecific ST-T changes. In the stress test, he was able to exercise only for 4 minutes on the Presley protocol. Had occasional PVCs. No angina. Coronary CTA reviewed. Calcified and noncalcified plaque causing moderate stenosis at approximately 50% along distal LAD. Left main had less than 25% stenosis. FFR findings are not significant. Echocardiogram with low normal LVEF at 50-55%. Otherwise unremarkable. Overall, treat for stable coronary disease. With regard to weight, again discussed about implications from this weight and he clearly understands that he needs to lose some. He will start making efforts. Blood pressure is stable on the current regimen. Continue statins. LDL is okay but triglycerides are high. Again we will respond to improved diet, lifestyle changes and weight loss. Discussion Notes During the consultation, we discussed the management of obesity, hypertension, and hypertriglyceridemia. I emphasized the importance of lifestyle modifications, including dietary changes and regular physical activity, to manage these conditions effectively. We also reviewed the need for regular monitoring of blood pressure and triglyceride levels to prevent complications. Patient was informed and verbally consented to the use of an ambient scribe for clinic note documentation during this visit. Patient Instructions: - Follow a balanced diet, reducing junk food and increasing fruits and vegetables. - Engage in regular physical activity to support joint health and cardiovascular function. - Regularly monitor blood pressure and adhere to prescribed medications. - Schedule follow-up appointments for ongoing management of chronic conditions. Coding Level of Care Code Est Pt Level 4 (54802) Complex EM visit Add On G2211 Diagnoses Atherosclerotic cardiovascular disease I25.10 Essential hypertension I10 High cholesterol E78.00 Obesity (BMI 30-39.9) E66.9 CPT Codes EKG - CPT: 78340-[id number], Complete ([id number])
[2024-10-25 12:36] VITALS: BP 128/60; PULSE 74; BMI 32.3
--- OUTSIDE RECORDS SUMMARY | 2024-10-25 12:53 | XMS_ITS | Patient Health Record ---
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 Phone Tobias (RETIRED) Laurent VELASQUEZ Primary Care Provide r Pramod Chong Unavailable [phone] Allergies Allergen (clinical drug ingredient) Drug/Non Drug [...] Problem Status W/U Status Risk Notes Problem 160796137 Colon cancer screening (Z12.11) Active confirmed Problem Diverticular disease of colon (381194671) Diverticulosis of large intestine without perforation or abscess without bleeding (K57.30) Active confirmed Problem 382618317 Fatty liver (K76.0) Active confirmed Problem 111106712 Gastroesophageal reflux disease with esophagitis without hemorrhage (K21.00) Active confirmed Plan Of Treatment Future Test Test Name Order Date UPPER GI ENDOSCOPY 07/05/2012 COLONOSCOPY 07/05/2012 COLONOSCOPY 01/19/2023 Insurance Providers Payer Name Payer Address Payer Phone Subscriber Number Group Number Insured Name Patient Relationship to Insured Coverage Start Date Coverage End Date MED[place]ARE OF [place] [address] [facility] [place] [address] [id number] KUN DUENAS Self - patient is the insured [facility] JAVIERNIRADU [address] [place] [address] [id number] KUN DUENAS Self - patient is the insured Medical (General) History Medical History History ICD Code Denies [place],DM,CVA,Lung disease,renal dise ase Hyperlipidemia GERD-EGD in 08/2012 with eros cecilia esophagitis and gobmm-odhjakgn-jpnjl hiatal hernia-Bx neg for Cobos's Screening colonoscopy in 08/2012 neg for polyps-fairly diffuse diverticulosis Pneumonia 10/2021 Hypertension Fatty liver on imaging with ultrasound and CT scan, negative hepatitis B and C studies; most recent liver profile in October of 2022 was normal except for an ALT of 43 Surgical History Surgery Date(Month/Year) Cholecystectomy
== END 2024-10-25 12:54 | disposition home or self-care (01) ==
LOC: HO.HCS 12:09
PROVIDERS: PCP Internal Medicine; Visit Provider Internal Medicine
DX: I25.10 Atherosclerotic heart disease of native coronary artery without angina pectoris (principal); I10 Essential (primary) hypertension; E78.00 Pure hypercholesterolemia, unspecified; E66.9 Obesity, unspecified
CPT/HCPCS: 93010; 99214; G2211

== ENCOUNTER → 2024-10-25 12:08 | Outpatient (BNVA) | payer MEDICARE, OTHER, SELFPAY | PROVIDERS: PCP Internal Medicine; Visit Provider Internal Medicine | DX: I25.10 Atherosclerotic heart disease of native coronary artery without angina pectoris (principal); I10 Essential (primary) hypertension; E78.00 Pure hypercholesterolemia, unspecified; E66.9 Obesity, unspecified; Z68.32 Body mass index [BMI] 32.0-32.9, adult; R94.31 Abnormal electrocardiogram [ECG] [EKG] | CPT/HCPCS: 93005; 99212 ==

== ENCOUNTER 2024-11-16 13:54 | Outpatient (AMB) | payer MEDICARE, OTHER, SELFPAY ==
--- OUTSIDE RECORDS SUMMARY | 2024-11-16 14:01 | XMS_ITS | Patient Health Record ---
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 Phone Tobias (RETIRED) Laurent VELASQUEZ Primary Care Provide r Pramod Chong Unavailable [phone] Allergies Allergen (clinical drug ingredient) Drug/Non Drug [...] Problem Status W/U Status Risk Notes Problem 933447060 Colon cancer screening (Z12.11) Active confirmed Problem Diverticular disease of colon (058055180) Diverticulosis of large intestine without perforation or abscess without bleeding (K57.30) Active confirmed Problem 393380565 Fatty liver (K76.0) Active confirmed Problem 179936182 Gastroesophageal reflux disease with esophagitis without hemorrhage (K21.00) Active confirmed Plan Of Treatment Future Test Test Name Order Date UPPER GI ENDOSCOPY 07/05/2012 COLONOSCOPY 07/05/2012 COLONOSCOPY 01/19/2023 Insurance Providers Payer Name Payer Address Payer Phone Subscriber Number Group Number Insured Name Patient Relationship to Insured Coverage Start Date Coverage End Date MED[place]ARE OF [place] [address] [place] [address] [id number] KUN DUENAS Self - patient is the insured [facility] JAVIERNIRADU [address] [place] [address] [phone] [id number] KUN DUENAS Self - patient is the insured Medical (General) History Medical History History ICD Code Denies [place],DM,CVA,Lung disease,renal dise ase Hyperlipidemia GERD-EGD in 08/2012 with eros cecilia esophagitis and dvgsp-wwifccll-emfkv hiatal hernia-Bx neg for Cobos's Screening colonoscopy in 08/2012 neg for polyps-fairly diffuse diverticulosis Pneumonia 10/2021 Hypertension Fatty liver on imaging with ultrasound and CT scan, negative hepatitis B and C studies; most recent liver profile in October of 2022 was normal except for an ALT of 43 Surgical History Surgery Date(Month/Year) Cholecystectomy
[2024-11-16 14:03] VITALS: BP 140/90; PULSE 86; TEMP 37; O2SAT 98; BMI 32.5
--- NOTE | 2024-11-16 14:03 | MHC.OFFWIV ---
Intake Vital Signs 11/16/24 14:03 Height 5 ft 11 in Weight 233 lb BMI 32.5 BP 140/90 H Blood Pressure Location Lt brachial Position Sitting Pulse 86 Pulse Source Pulse Oximeter Temp 98.6 F Temp Source Oral Pulse Oximetry (%) 98 Oxygen Delivery Method Room Air Intake Visit Reasons: EP-chest congestion, stuffy nose Patient Tobacco Use Status: Former Tobacco user Allergies amoxicillin (Amoxicillin) Allergy (Mild, Verified 11/16/24 14:04) RASH Penicillins Allergy (Mild, Verified 11/16/24 14:04) HIVES Do you need a note to return to daycare/school/sports/work: No HPI HPI Comments History of Present Illness Details 69 y/o Male patient who presents to the walk in clinic with c/o Productive cough, SOB and chest tightness for 10 days now. PCP sent Z-pack for 5 days 11/07 and he completed the course. Today Pt reports no improvement and continues to have generalized malaise, and productive cough. Pt worried he might have Pneumonia and asking for Xray. Denies Fevers, chills, nausea or vomiting. [facility] Medical History (Updated 11/16/24 @ 14:33 by Marta Solorio NP) Acute respiratory disease Cough Obesity (BMI 30-39.9) Hyperlipidemia Essential hypertension Atherosclerotic cardiovascular disease Sepsis Chest pain Rash and nonspecific skin eruption High cholesterol GERD (gastroesophageal reflux disease) Surgical History Hx of cholecystectomy Hx of colonoscopy (~06/14/23) Family History Maternal Grandmother Diabetes Brother Heart attack Heart problem Father No problems noted. Mother No problems noted. Social History Household Members: Spouse Housing: House Do you presently have visiting nurse or other home services: No Alcohol intake: current Alcohol intake frequency: a few times a month Patient Tobacco Use Status: Former Tobacco user e-Cigarette/Vaping Use: Former Use Substance Use Type: Marijuana service: No Current occupational status: retired Cognitive needs: No Hearing needs: No Vision needs: Yes (rx glasses) Review of Systems Const All systems reviewed & are unremarkable except as noted in HPI and below Physical Exam Vital Signs: Last Vital Signs Temp 98.6 F 11/16/24 14:03 Pulse 86 11/16/24 14:03 BP 140/90 H 11/16/24 14:03 Pulse Ox 98 11/16/24 14:03 Oxygen Delivery Method Room Air 11/16/24 14:03 BMI result Body Mass Index 32.5 Const General: no acute distress Nutritional Appearance: overweight Orientation/consciousness: patient oriented x3 HEENT Head: Yes normocephalic Ears: external ears normal and TM abnormal obstructed by cerumen bilateral General nose exam: Normal external nose present and Nasal discharge present Face and sinus: Yes sinuses nontender Mouth: moist mucous membranes Throat: Yes uvula midline Resp Effort & Inspection: normal respiratory effort and able to speak in complete sentences Auscultation: clear to auscultation bilaterally, no crackles, no rales, no rhonchi and no wheezes Cardio Heart sounds: S1 normal heart sound present and S2 normal heart sound present Neuro General: patient oriented x3 Assessment & Plan Assessment & Plan (1) Cough: Code(s): R05.9 - Cough, unspecified Qualifiers: Cough type: subacute Qualified Code(s): R05.2 - Subacute cough Plan: Ordered Chest Xray as requested. Ordered SARs Ordered cough medicine. F/U with PCP. Orders: Orders SARS-CoV2/FLU/RSV Today J06.9 - Acute upper respiratory infection, unspecified XR chest 2V Today R05.9 - Cough, unspecified Medications: New benzonatate 200 mg (2 x 100 mg) PO BID 60 caps 0RF R05.9 - Cough, unspecified Coding Level of Care Code Est Pt Level 4 (80443) Diagnoses Subacute cough R05.2 Cough type: subacute Time Spent (min) 20
== END 2024-11-16 17:32 | disposition home or self-care (01) ==
PROVIDERS: PCP Internal Medicine; Visit Provider Nurse Practitioner Family
DX: R05.2 Subacute cough (principal)

== ENCOUNTER 2024-11-16 13:54 | Outpatient (REF) | payer MEDICARE, OTHER, SELFPAY ==
--- NOTE | ~2024-11-16 | XR_ITS ---
EXAMINATION: XR CHEST CLINICAL INFORMATION: R05.9 - Cough, unspecified COMPARISON: November 06, 2022 TECHNIQUE: 2 views of the chest were obtained. FINDINGS: Subtle linear scarring has decreased in thickness in the right upper third lung zone. Lungs clear otherwise. There is no sign of pleural effusion. Heart size is within normal limits. XR/XR chest 2V IMPRESSION: No acute disease. Electronically signed by: Eliot Clayton MD 11/16/2024 02:39 PM EDT
== END 2024-11-16 13:55 | disposition home or self-care (01) ==
LOC: HO.HMGCX 13:54
PROVIDERS: PCP Internal Medicine; Visit Provider Nurse Practitioner Family
DX: R05.2 Subacute cough (principal)
CPT/HCPCS: 71046; 99212

== ENCOUNTER 2024-11-16 14:17 | Outpatient (REF) | payer MEDICARE, OTHER, SELFPAY ==
[2024-11-16 19:22] LABS: Resp Syncy Virus RNA Qual PCR NEGATIVE (Negative); SARS COV2 PCR INHOUSE NEGATIVE (Negative)
== END 2024-11-16 14:18 | disposition home or self-care (01) ==
LOC: HO.LAB 14:17
PROVIDERS: Visit Provider Nurse Practitioner Family
DX: Z11.52 Encounter for screening for COVID-19 (principal); J06.9 Acute upper respiratory infection, unspecified
CPT/HCPCS: 87637

== ENCOUNTER → 2024-11-16 14:19 | Outpatient (BNV) | payer MEDICARE, OTHER, SELFPAY | PROVIDERS: PCP Internal Medicine; Visit Provider Radiology Diagnostic Radiology | DX: R05.9 Cough, unspecified (principal) | CPT/HCPCS: 71046 ==

== ENCOUNTER 2025-01-17 13:08 | Outpatient (REF) | payer MEDICARE, OTHER, SELFPAY ==
[2025-01-17 15:12] LABS: Alanine Aminotransferase 61 U/L (0-40); Albumin Level 4.2 g/dL (3.5-5.0); Alkaline Phosphatase 94 U/L (39-117); Anion Gap 11 (12-20); Aspartate Amino Transferase 33 U/L (5-37); Blood Urea Nitrogen 12 mg/dL (9-16); Calcium 9.0 mg/dL (8.4-10.2); Carbon Dioxide 28 mmol/L (22-29); Chloride 108 mmol/L (96-108); Cholesterol 151 mg/dL (<200); Estimated Glomerular Filt Rate > 60; HDL Cholesterol 37 mg/dL (>40); Potassium 4.0 mmol/L (3.3-5.1); Sodium 143 mmol/L (135-145); Total Protein 7.3 g/dL (6.5-8.0); Triglycerides 472 mg/dL (<150)
[2025-01-17 15:32] LABS: Prostate Specific Antigen 3.36 ng/mL (<0.05-4.0)
== END 2025-01-17 13:09 | disposition home or self-care (01) ==
LOC: HO.LAB 13:08
PROVIDERS: PCP Internal Medicine; Visit Provider Physician Assistant
DX: Z12.5 Encounter for screening for malignant neoplasm of prostate (principal); I10 Essential (primary) hypertension; I25.10 Atherosclerotic heart disease of native coronary artery without angina pectoris; E78.5 Hyperlipidemia, unspecified; E66.9 Obesity, unspecified; Z68.34 Body mass index [BMI] 34.0-34.9, adult; Z79.82 Long term (current) use of aspirin; Z79.899 Other long term (current) drug therapy
CPT/HCPCS: 36415; 80048; 80061; 80076; 83036; 83721; 84153; 99212

== ENCOUNTER 2025-01-17 13:08 | Outpatient (AMB) | payer MEDICARE, OTHER, SELFPAY ==
--- NOTE | 2025-01-17 12:46 | MHC.PC.OV ---
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 Accompanied by: Self / Same As Patient Allergies amoxicillin (Amoxicillin) Allergy (Mild, Verified 01/17/25 12:46) RASH Penicillins Allergy (Mild, Verified 01/17/25 12:46) HIVES Medication List - Last Reconciled 01/17/25 by MEENA Sanchez amlodipine 10 mg PO DAILY aspirin 81 mg PO DAILY atorvastatin (Lipitor) 40 mg PO QPM doxazosin 2 mg PO DAILY multivitamin 1 tab PO DAILY omeprazole 20 mg PO DAILY@0630 Tobacco use date assessed: 07/19/24 Dental Screening Dental Screen Date: 07/19/24 HPI HPI Comments History of Present Illness Details 61-year-old male with history of coronary artery disease, hypertension, hyperlipidemia, GERD, obesity, osteoarthritis presenting to the office today for management of chronic conditions. GERD- prilosec does help GERD OA knees- manageable. HTN- bp 120/68. Compliant with amlodipine 10mg BPH-managed with doxasosin Obesity- BMI 34.4. Not working on weight loss. Not exercising or following healthy diet. Concerns: Occ twinges in the chest, fleeting. No severe, nonradiating. Ongoing years, no retrosternal pressure. Positional, occ laying on side. Hx pneumonia. Omeprazole not helping congestion ROS: See HPI EXAM: Constitutional - Awake and Alert, No apparent distress Eyes - PERRL Cardiovascular - S1S2, RRR, No edema Respiratory - Normal lung expansion, Normal respiratory effort, No respiratory distress, CTA bilaterally Extremities - no calf tenderness bilaterally, no swelling Skin - Warm/Dry Neurological - Alert & oriented x3 Psychological - Appropriate affect PFSH Medical History (Updated 01/17/25 @ 13:34 by MEENA Sanchez) Acute respiratory disease Cough Obesity (BMI 30-39.9) Hyperlipidemia Essential hypertension Atherosclerotic cardiovascular disease Sepsis Chest pain Rash and nonspecific skin eruption High cholesterol GERD (gastroesophageal reflux disease) Surgical History Hx of cholecystectomy Hx of colonoscopy (~06/14/23) Family History Maternal Grandmother Diabetes Brother Heart attack Heart problem Father No problems noted. Mother No problems noted. Social History Household Members: Spouse Housing: House Do you presently have visiting nurse or other home services: No Alcohol intake: current Alcohol intake frequency: a few times a month Patient Tobacco Use Status: Former Tobacco user e-Cigarette/Vaping Use: Former Use Substance Use Type: Marijuana service: No Current occupational status: retired Cognitive needs: No Hearing needs: No Vision needs: Yes (rx glasses) Questionnaire Thrive Questionnaire Date Thrive assessed: 07/19/24 PIPER-7 AMB Questionnaire PIPER-7 Date PIPER - 7 assessed: 07/19/24 Source: Developed by Drs. Pramod Ayala, Sloane Angel, Mark Felix and colleagues, with an educational cam from [employer]. Physical exam (Primary Care) Vital Signs: Last Vital Signs Temp 98 F 01/17/25 13:14 Pulse 76 01/17/25 13:14 Resp 18 01/17/25 13:14 BP 120/68 01/17/25 13:14 Pulse Ox 97 01/17/25 13:14 Oxygen Delivery Method Room Air 01/17/25 13:14 BMI result Body Mass Index 34.4 Tobacco/Smoking Status: Tobacco use Status Tobacco use date assessed 07/19/24 01/17/25 12:47 Patient Tobacco Use Status Former Tobacco user 01/17/25 12:47 Tobacco use type 10/16/22 11:28 e-Cigarette/Vaping Use Former Use 01/17/25 12:47 Thrive Assessment: Date of Thrive Assessment Date Thrive assessed 07/19/24 01/17/25 12:47 Coding Level of Care Code Est Pt Level 4 (75564) Complex EM visit Add On G2211 Diagnoses Essential hypertension I10 Atherosclerotic cardiovascular disease I25.10 Hyperlipidemia E78.5 Obesity (BMI 30-39.9) E66.9 Assessment & Plan Assessment & Plan (1) Essential hypertension: Code(s): I10 - Essential (primary) hypertension Category: Medical Plan: Controlled. Continue amlodipine (2) Atherosclerotic cardiovascular disease: Code(s): I25.10 - Atherosclerotic heart disease of [place] coronary artery without angina pectoris Category: Medical Plan: Stable. No anginal chest pain. Continue aspirin, statin (3) Hyperlipidemia: Code(s): E78.5 - Hyperlipidemia, unspecified Category: Medical Plan: Lipid panel ordered. Continue atorvastatin. Weight loss measures as discussed (4) Obesity (BMI 30-39.9): Code(s): E66.9 - Obesity, unspecified Category: Medical Plan: Weight loss efforts advised. Recommend calorie deficit with emphasis on increasing protein, fruit vegetables. Limit simple sugars/carbs and highly processed food. Recommend exercise for 150 minutes moderate intensity per week Plan Follow up in 6 months, labs today Orders: Orders Basic Metabolic Panel 01/17/25 E66.9 - Obesity, unspecified, E78.5 - Hyperlipidemia, unspecified, I10 - Essential (primary) hypertension, I25.10 - Atherosclerotic heart disease of [place] coronary artery without angina pectoris Hemoglobin A1c 01/17/25 E66.9 - Obesity, unspecified, E78.5 - Hyperlipidemia, unspecified, I10 - Essential (primary) hypertension, I25.10 - Atherosclerotic heart disease of [place] coronary artery without angina pectoris Lipid Panel 01/17/25 E66.9 - Obesity, unspecified, E78.5 - Hyperlipidemia, unspecified, I10 - Essential (primary) hypertension, I25.10 - Atherosclerotic heart disease of [place] coronary artery without angina pectoris Liver Panel 01/17/25 E66.9 - Obesity, unspecified, E78.5 - Hyperlipidemia, unspecified, I10 - Essential (primary) hypertension, I25.10 - Atherosclerotic heart disease of [place] coronary artery without angina pectoris Prostate Specific Antigen 01/17/25 E66.9 - Obesity, unspecified, E78.5 - Hyperlipidemia, unspecified, I10 - Essential (primary) hypertension, I25.10 - Atherosclerotic heart disease of [place] coronary artery without angina pectoris
[2025-01-17 13:14] VITALS: BP 120/68; PULSE 76; RESP 18; TEMP 36.6; O2SAT 97; BMI 34.4
--- OUTSIDE RECORDS SUMMARY | 2025-01-17 18:25 | XMS_ITS | Patient Health Record ---
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 Phone Tobias (RETIRED) Laurent VELASQUEZ Primary Care Provide r Unavailable Pramod Earl Unavailable [phone] Allergies Allergen (clinical drug ingredient) Drug/Non Drug [...] TAKE 1 TABLET BY MOUTH EVERY DAY Oral; Duration: 90 Active amLODIPine Besylate 5 MG 1 tablet Orally Once a day Active Simvastatin 80 MG 1 tablet Orally Once a day Active Problems Problem Type SNOMED Code ICD Code Onset Dates Problem Status W/U Status Risk Notes Problem Colon cancer screening (301066375) Colon cancer screening (Z12.11) Active confirmed Problem Diverticular disease of colon (360735186) Diverticulosis of large intestine without perforation or abscess without bleeding (K57.30) Active confirmed Problem Fatty liver (816613386) Fatty liver (K76.0) Active confirmed Problem Gastroesophageal reflux disease with esophagitis (disorder) (628575364) Gastroesophageal reflux disease with esophagitis without hemorrhage (K21.00) Active confirmed Plan Of Treatment Future Test Test Name Order Date UPPER GI ENDOSCOPY 07/05/2012 COLONOSCOPY 07/05/2012 COLONOSCOPY 01/19/2023 Insurance Providers Payer Name Payer Address Payer Phone Subscriber Number Group Number Insured Name Patient Relationship to Insured Coverage Start Date Coverage End Date MEDICARE OF [place] [address] [place] [address] [id number] KUN DUENAS Self - patient is the insured [facility] [address] [place] [address] [id number] KUN DUENAS Self - patient is the insured Medical (General) History Medical History History ICD Code Denies [place],DM,CVA,Lung disease,renal dise ase Hyperlipidemia GERD-EGD in 08/2012 with eros cecilia esophagitis and csybh-mgpwgblv-qwrmu hiatal hernia-Bx neg for Cobos's Screening colonoscopy in 08/2012 neg for polyps-fairly diffuse diverticulosis Pneumonia 10/2021 Hypertension Fatty liver on imaging with ultrasound and CT scan, negative hepatitis B and C studies; most recent liver profile in October of 2022 was normal except for an ALT of 43 Surgical History Surgery Date(Month/Year) Cholecystectomy
== END 2025-01-17 13:51 | disposition home or self-care (01) ==
PROVIDERS: PCP Physician Assistant; Visit Provider Physician Assistant
DX: I10 Essential (primary) hypertension (principal); I25.10 Atherosclerotic heart disease of native coronary artery without angina pectoris; E78.5 Hyperlipidemia, unspecified; E66.9 Obesity, unspecified